=== PATIENT | female | born 1960 | race Caucasian/White ===

== ENCOUNTER → 2018-05-14 07:10 | Outpatient (CLI) | payer BC, SELFPAY ==
[2018-05-14 08:14] LABS: Alanine Aminotransferase 41 U/L (12-78); Albumin/Globulin Ratio 1.3 (1.1-1.8); Alkaline Phosphatase 77 U/L (46-116); Anion Gap 13.9 mEq/L (5-15); Aspartate Amino Transferase 25 U/L (15-37); Bilirubin,Total 0.5 mg/dL (0.2-1.0); Blood Urea Nitrogen 17 mg/dL (7-18); Calcium 9.3 mg/dL (8.5-10.1); Carbon Dioxide 30 mmol/L (21.0-32.0); Chloride 105 mmol/L (98-107); Chol/HDL Ratio 3.4 (1-3.5); Cholesterol 168 mg/dL (140-200); Creatinine,Serum 0.76 mg/dL (0.55-1.02); Estimated Glomerular Filt Rate 78 ml/min (>60); GFR (African American) 95 ML/MIN (>60); Globulin 3.2 gm/dl (1.3-3.2); Glucose 159 mg/dL (74-106); HDL Cholesterol 49 mg/dL (29-89); LDL Cholesterol 84 mg/dL (0-130); Potassium 4.9 mmoL/L (3.5-5.1); Sodium 144 mmol/L (136-145); Thyroid Stimulating Hormone 1.03 uIU/ml (0.358-3.740); Total Protein,Serum 7.2 gm/dL (6.4-8.2); Triglycerides 175 mg/dL (30-200); VLDL Cholesterol 35 mg/dL (0-40)
== END ==
PROVIDERS: Visit Provider Physician Assistant
DX: I25.10 Atherosclerotic heart disease of native coronary artery without angina pectoris (principal); I10 Essential (primary) hypertension
CPT/HCPCS: 36415; 80053; 80061; 84443

== ENCOUNTER → 2019-03-26 12:10 | Outpatient (CLI) | payer BC, SELFPAY ==
[2019-03-26 13:33] LABS: Alanine Aminotransferase 27 U/L (12-78); Albumin Level 3.7 gm/dL (3.4-5.0); Albumin/Globulin Ratio 1.2 (1.1-1.8); Alkaline Phosphatase 62 U/L (46-116); Anion Gap 13.4 mEq/L (5-15); Aspartate Amino Transferase 13 U/L (15-37); Bilirubin,Total 0.5 mg/dL (0.2-1.0); Blood Urea Nitrogen 11 mg/dL (7-18); Calcium 8.5 mg/dL (8.5-10.1); Carbon Dioxide 28 mmol/L (21.0-32.0); Chloride 107 mmol/L (98-107); Chol/HDL Ratio 2.9 (1-3.5); Cholesterol 152 mg/dL (140-200); Creatinine,Serum 0.58 mg/dL (0.55-1.02); Estimated Glomerular Filt Rate 106 ml/min (>60); GFR (African American) 129 ML/MIN (>60); Glucose 92 mg/dL (74-106); HDL Cholesterol 53 mg/dL (29-89); LDL Cholesterol 74 mg/dL (0-130); Potassium 4.4 mmoL/L (3.5-5.1); Sodium 144 mmol/L (136-145); Thyroid Stimulating Hormone 0.66 uIU/ml (0.358-3.740); Total Protein,Serum 6.7 gm/dL (6.4-8.2); Triglycerides 124 mg/dL (30-200); VLDL Cholesterol 25 mg/dL (0-40)
[2019-03-26 13:56] LABS: Hemoglobin A1C 6.3 % (0.0-7.0)
[2019-03-27 09:49] LABS: Creatinine, Urine 62.6 mg/dL (Not Estab.); Microalbumin, Urine <3.0 ug/mL (Not Estab.)
== END ==
PROVIDERS: Visit Provider Family Medicine
DX: E11.9 Type 2 diabetes mellitus without complications (principal); E78.5 Hyperlipidemia, unspecified
CPT/HCPCS: 36415; 80053; 80061; 82043; 82570; 83036; 84443

== ENCOUNTER → 2019-06-08 09:23 | Outpatient (CLI) | payer BC, SELFPAY ==
--- NOTE | 2019-06-08 09:25 | CA_ITS ---
PROCEDURE: 2-D M-mode and color Doppler study INDICATIONS FOR THE TEST: Chest pain+ COPD Heart Murmur Tobacco Smoking+ Palpitations+ Fatigue Syncope Edema+ Hypertension+Diabetes Mellitus+ Rheumatic Fever SOB STUART Obesity Hyperlipidemia+ Family History HD+ Additional History cardiac stents, hx of [place] ,dizziness PATIENT INFORMATION HEIGHT: 68 WEIGHT: 202 GENDER: Female B/P: 122/85 2-D/M-MODE INTERPRETATION: 2-D MEASUREMENTS OBSERVED VALUES IN CMS Right Ventricular Dimension (RVDd) 2.5 Interventricular Septum (Thickness)(IVsd) 0.9 Left Ventricular Internal Dimensions(LVIDd) 4.8 Left Ventricular Posterior Wall (Thickness)(LVPWd) 0.9 Aortic Root 2.9 Aortic Cusp Separation 2.0 Left Atrial Dimensions (LAD) 3.7 2D 1. Left atrium is mildly enlarged, left ventricle is normal size, mild concentric left ventricular hypertrophy, visually estimated ejection fraction 55% with no obvious regional wall motion abnormality, endocardial surfaces are poorly visualized. 2. The right atrium and right ventricle are mildly enlarged with normal contractility. 3. The aortic valve is minimally thickened and calcified. 4. The mitral and tricuspid valve are grossly normal. 5. The pulmonic valve is poorly visualized. 6. No significant pericardial effusion noted. DOPPLER INTERROGATION: Doppler interrogation of the aortic, mitral and tricuspid valvular presence of mild mitral and tricuspid regurgitation, tricuspid regurgitation jet velocity is inadequate for calculation of the right ventricular systolic pressure, grade 1 diastolic dysfunction seen with tissue Doppler evidence of raised left atrial pressure. CONCLUSION: 1. Normal left ventricular size, mild concentric left ventricular hypertrophy, visually estimated ejection fraction 55% with no regional wall motion abnormality, grade 1 diastolic dysfunction seen with tissue Doppler evidence of raised left atrial pressure. 2. Mildly enlarged right ventricle with normal contractility. 3. Mild mitral and tricuspid regurgitation 4. No significant pericardial effusion noted.
== END ==
PROVIDERS: PCP Family Medicine; Visit Provider Internal Medicine
DX: I25.10 Atherosclerotic heart disease of native coronary artery without angina pectoris (principal); E11.9 Type 2 diabetes mellitus without complications; I10 Essential (primary) hypertension; Z79.84 Long term (current) use of oral hypoglycemic drugs
CPT/HCPCS: 93306

== ENCOUNTER → 2019-06-09 07:24 | Outpatient (CLI) | payer BC, SELFPAY ==
--- NOTE | 2019-06-09 07:29 | NM_ITS ---
History:Chest pain, Palpitations, Syncope, Fatigue, HTN, DM, Tobacco use, Family history, CAD Procedure: Patient exercised on [place] protocol 8 minutes and 41, resting heart rate 68 bpm, resting blood pressure 150/90, with exercise maximum heart rate achieve was 138 bpm which is .greater than 85 % of the maximum predicted heart rate and blood pressure was 198/96. Test was stopped due to shortness of breath, patient denied any complained of chest pain. Patient has good exercise capacity achieved 10.1 mets of workload on treadmill, the blood pressure response to exercise was adequate. Electrocardiogram: Resting electrocardiogram showed sinus rhythm ., with exercise there is less than 1.5mm ST segment depression noted from the baseline EKG. The EKG portion of the exercise Myoview is negative for ischemia. Cardias Stress and Resting SPECT images: Cardias Stress and Resting SPECT images were obtained using technetium 99m Myoview 29.7 mCi stress and 10.11 mCi at rest. Gated SPECT further analysis of segmental wall motion and calculation of ejection fraction also done. Cardiac stress and resting SPECT show uniform myocardial activity without segmental perfusion abnormality, the computer derived ejection fraction is 67% with no regional wall motion abnormality, right ventricle is normal size and contractility. Conclusion: 1. The EKG portion of the exercise Myoview is negative for ischemia, patient has good exercise capacity achieved 10.1mets of workload on treadmill, the blood pressure response to exercise was adequate, there was no exercise-induced chest discomfort 2. No scintigraphic evidence of reversible ischemia seen, computer derived ejection fraction is over 67% with no regional wall motion abnormality. 3. Normal exercise Myoview study.
--- NOTE | 2019-06-09 07:42 | HMH.ITSHM ---
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 []CRESTOR LISINOPRIL METFORMIN COREG ROBINUL HORMONE PATCH SAXENDA XARELTO WELCHOL PREVACID ASA
== END ==
PROVIDERS: PCP Family Medicine; Visit Provider Internal Medicine
DX: I25.10 Atherosclerotic heart disease of native coronary artery without angina pectoris (principal); I10 Essential (primary) hypertension; E11.9 Type 2 diabetes mellitus without complications; Z79.84 Long term (current) use of oral hypoglycemic drugs
CPT/HCPCS: 78452; 93017; A9502

== ENCOUNTER → 2019-07-28 12:50 | Outpatient (CLI) | payer BC, SELFPAY ==
--- NOTE | 2019-07-28 12:56 | MR_ITS ---
PROCEDURE: MR HIP RT W CON CLINICAL INDICATION: RIGHT HIP PAIN Right hip pain and clicking COMPARISON: IR ARTHROGRAM HIP RT from 07/28/2019 TECHNIQUE: Multiplanar multi echo sequences are performed following intra-articular contrast injection. FINDINGS: Normal alignment. No fracture or dislocation. No evidence of avascular necrosis or significant arthritic change. The no lytic or blastic changes are evident. Intra-articular contrast is present and there is some contrast also within the soft tissues anterior to the femoral neck. No obvious labral tear. No obvious chondral lesions. IMPRESSION: Negative MRI arthrogram of the right hip. No obvious labral tear or chondral abnormality. Dictated by: Brannon Benson MD 07/31/2019 08:23 Electronically signed by Brannon Benson MD in [place] 07/31/2019 08:23
--- NOTE | 2019-07-28 13:19 | IR_ITS ---
PROCEDURE: IR ARTHROGRAM HIP RT CLINICAL INDICATION: PAIN RT HIP Right hip pain and clicking COMPARISON: MR HIP RT W CON from 07/28/2019 FINDINGS: Technique: Following obtaining informed consent under aseptic conditions and local anesthesia with 1 percent buffered lidocaine, 20 gauge spinal needle was inserted along the superior lateral aspect of the femoral neck at the basicervical region. Approximately 12 cc a mixture of Optiray 320, lidocaine, and gadolinium was injected. The contrast was noted to fill the bursa and extend into the joint space. There was a minimal amount of extravasation into the soft tissues. The patient tolerated the procedure well without evidence of immediate complication. IMPRESSION: Uneventful hip arthrogram performed Please see MRI arthrogram for further description Dictated by: Brannon Benson MD 07/28/2019 17:05 Electronically signed by Brannon Benson MD in [place] 07/31/2019 07:49
== END ==
PROVIDERS: PCP Family Medicine; Visit Provider Orthopaedic Surgery Adult Reconstructive Orthopaedic Surgery
DX: M25.551 Pain in right hip (principal)
CPT/HCPCS: 73525; 73722

== ENCOUNTER → 2019-10-06 15:00 | Outpatient (CLI) | payer BC, SELFPAY ==
--- NOTE | 2019-10-06 15:02 | CT_ITS ---
PROCEDURE: CT LUNG SCREENING CLINICAL INDICATION: CURRENT TOBACCO USE Forty pack-year smoking history, asymptomatic for lung cancer COMPARISON: No exams were available for comparison TECHNIQUE: The exam was performed on a GE Light Speed [address] scanner using 2.90 mGy CTDI. A low dose helical CT CHEST was performed on a multi-detector scanner. All CT scans at the facility use one or more dose reduction, viz: automated exposure control, ma/kV adjustment per patient size (including targeted exams where dose is matched to indication, i.e. head), or iterative reconstruction technique. The LDCT was performed in a facility that meets the criteria for the screening program. Data regarding this exam was submitted to ACR which is an approved registry. The order for this exam indicates that it came as a result of a lung cancer screening counseling shard decision-making visit that included all the elements required of such a visit including smoking cessation. The radiologist interpreting this exam meets the [facility] criteria for the LDCT lung cancer screening program. The exam is reported using the Lung-RADS classification scale and reported to the ACR registry. NOTE: This study was performed for the specific purposes of lung cancer screening and is not an alternative to diagnostic chest CT. RADIATION DOSE: CTDI vol(CT dose Index-volume) = 2.90mG DLP (Dose Length Product) = 103.42 mGcm FINDINGS: No suspicious pulmonary nodules evident. There is a subpleural 4 mm opacity in the lingula anteriorly which may be due to an area of fibrotic change with some mild fibrotic change long the lateral aspect of the major fissure inferiorly on the left. OTHER FINDINGS: Coronary artery calcifications the IMPRESSION: Lung rads category 2 benign findings. Coronary artery disease Recommend 12 month LDCT screening exam Dictated by: Brannon Benson MD 10/06/2019 19:18 Electronically signed by Brannon Benson MD in [place] 10/15/2019 08:01
== END ==
PROVIDERS: PCP Family Medicine; Visit Provider Family Medicine
DX: Z87.891 Personal history of nicotine dependence (principal); Z12.2 Encounter for screening for malignant neoplasm of respiratory organs

== ENCOUNTER → 2020-09-01 16:45 | Outpatient (CLI) | payer BC, SELFPAY | PROVIDERS: Visit Provider Family Medicine | DX: N30.00 Acute cystitis without hematuria (principal) | CPT/HCPCS: 87086; 87088; 87186 ==

== ENCOUNTER 2021-04-08 22:50 | Observation (INO) | payer BC, SELFPAY ==
[2021-04-08 22:51] VITALS: BP 161/72; PULSE 81; RESP 18; TEMP 36.6; O2SAT 97; BMI 33.4
--- NOTE | 2021-04-08 23:10 | CT_ITS ---
PROCEDURE INFORMATION: Exam: CT Abdomen And Pelvis With Contrast Exam date and time: 04/08/2021 11:10 PM Age: 60 years old Clinical indication: Vomiting; Prior surgery; Surgery date: 6+ months; Surgery type: Gallbladder; Patient HX: Abd cramping, v/d for 1 day; Additional info: Abd pain TECHNIQUE: Imaging protocol: Computed tomography of the abdomen and pelvis with contrast. Total images: 335 Radiation optimization: All CT scans at this facility use at least one of these dose optimization techniques: automated exposure control; mA and/or kV adjustment per patient size (includes targeted exams where dose is matched to clinical indication); or iterative reconstruction. Contrast material: ISOVUE; Contrast volume: 75 ml; Contrast route: IV; COMPARISON: MR HIP RT W CON 07/28/2019 1:28 PM FINDINGS: Coronary arteries: Calcific coronary artery disease is evident. Liver: Incidental Aki lobe of liver suspected. Gallbladder and bile ducts: Prior cholecystectomy noted. Pancreas: Normal. No ductal dilation. Spleen: Normal. No splenomegaly. Adrenal glands: Normal. No mass. Kidneys and ureters: Normal. No hydronephrosis. Stomach and bowel: Unremarkable. No obstruction. No mucosal thickening. Appendix: As seen posterior to the cecum on axial image 84, 15 mm diameter appendix was not distended on MRI of 07/28/2019 and has subtle surrounding inflammation, favoring early acute appendicitis though the diameter and its relative internal low-density conceivably could indicate the presence of an underlying appendiceal mucinous tumor. Intraperitoneal space: Unremarkable. No free air. No significant fluid collection. Vasculature: Atherosclerosis is evident. 3.4 x 4.5 cm nonruptured infrarenal abdominal aortic aneurysm. Abundant mural thrombus present in the aorta. Lymph nodes: Unremarkable. No enlarged lymph nodes. Urinary bladder: Unremarkable as visualized. Reproductive: Prior hysterectomy noted. Bones/joints: Moderate disc space height loss at L1-L3. 6 lumbar type vertebral bodies. Soft tissues: Benign peritoneal calcified body is an incidental finding. Other findings: Incidental pelvic phleboliths. IMPRESSION: 1. As seen posterior to the cecum on axial image 84, 15 mm diameter appendix has subtle inflammation at its distal aspect, favoring early acute appendicitis. The appendix was not distended on MRI of 07/28/2019. The prominent diameter and its relative internal low-density conceivably could indicate the presence of an underlying appendiceal mucinous tumor. 2. 3.4 x 4.5 cm nonruptured infrarenal abdominal aortic aneurysm. Abundant mural thrombus present in the aorta. Follow-up imaging in 6 months is recommended. In addition to planning follow-up imaging, consider surgical or endovascular referral.
[2021-04-08 23:21] LABS: Basophils % 0.3 % (0.1-2.0); Eosinophils # 0.1 K/mm3 (0.0-0.4); Eosinophils % 0.7 % (0.1-12.0); Hemoglobin 14.9 g/dL (12.2-16.2); Lymphocytes % 14.7 % (10-50); Mean Corpuscular HGB Conc 33.8 g/dL (31.8-35.4); Mean Corpuscular Hemoglobin 31.3 pg (27.0-31.2); Mean Corpuscular Volume 92.7 fl (81-99); Mean Platelet Volume 8.2 fl (7.4-10.4); Monocytes # 0.5 K/mm3 (0.1-1.0); Monocytes % 3.4 % (1.7-9.3); Neutrophils # 11.2 K/mm3 (1.8-7.8); Neutrophils % 80.9 % (37.0-80.0); Platelet Count 243 K/mm3 (142-424); Red Blood Count 4.75 M/mm3 (4.20-5.40); Red Cell Distribution Width 13.7 % (11.5-17.5); White Blood Count 13.8 K/mm3 (4.8-10.8)
[2021-04-08 23:21] LABS: Microscopic, Urine URINE MICROSCOPIC (MICROSCOPIC)
[2021-04-08 23:22] LABS: Appearance,Urine CLOUDY (Clear); Bilirubin,Urine Negative (Negative); Blood, Urine Negative (Negative); Color,Urine YELLOW (Yellow); Glucose,Urine (UA) Negative (Negative); Ketones,Urine 1+ (Negative); Leukocyte Esterase,Urine Negative (Negative); Nitrate,Urine Negative (Negative); PH,Urine 8.5 (5.0-8.5); Protein,Urine Negative (Negative); Specific Gravity, Urine 1.015 (1.005-1.030); Urobilinogen,Urine 0.2 EU/dl (0.2)
[2021-04-08 23:23] VITALS: BP 148/64; PULSE 72; O2SAT 98
[2021-04-08 23:27] LABS: Alanine Aminotransferase 49 U/L (12-78); Albumin/Globulin Ratio 1.7 (1.1-1.8); Alkaline Phosphatase 86 U/L (38-126); Amylase 53 U/L (30-110); Anion Gap 13.7 mEq/L (5-15); Aspartate Amino Transferase 55 U/L (14-36); Bilirubin,Total 1.1 mg/dl (0.2-1.3); Blood Urea Nitrogen 18 mg/dl (7-17); Calcium 9.8 mg/dl (8.4-10.2); Carbon Dioxide 31 mmol/L (22.0-30.0); Chloride 97 mmol/L (98-107); Creatinine Clearance Estimated 93 mL/min (50-200); Estimated Glomerular Filt Rate 102 ml/min (>60); GFR (African American) 123 ML/MIN (>60); Glucose 155 mg/dl (74-100); Lipase 170 U/L (23-300); Potassium 4.7 mmoL/L (3.5-5.1); Sodium 137 mmol/L (136-145)
[2021-04-08 23:29] LABS: Amorphous Sediment,Urine 2+ /lpf; Bacteria,Urine Trace /lpf; Squamous Epithelial Cell,Urine TNTC #/hpf (0-5); WBC,Urine Occasional #/hpf (0-3)
[2021-04-08 23:31] VITALS: BP 144/66; PULSE 73; O2SAT 94
[2021-04-08 23:33] LABS: C-Reactive Protein 4.8 mg/L (0-4)
[2021-04-08 23:37] LABS: Adenovirus,PCR Not Detected (NotDetected); Bordetella Pertussis Not Detected (NotDetected); Chlamydophila Pneumoniae, PCR Not Detected (NotDetected); Coronavirus 19, PCR Not Detected (NotDetected); Coronavirus 229E Not Detected (NotDetected); Coronavirus NL63 Not Detected (NotDetected); Coronavirus OC43 Not Detected (NotDetected); Coronovirus HKU1,PCR Not Detected (NotDetected); Human Metapneumovirus Not Detected (NotDetected); Influenza A, PCR Not Detected (NotDetected); Influenza AH1, 2009 Not Detected (NotDetected); Influenza AH1, PCR Not Detected (NotDetected); Influenza AH3,PCR Not Detected (NotDetected); Influenza B, PCR Not Detected (NotDetected); Mycoplasma Pneumoniae, PCR Not Detected (NotDetected); Parainfluenza 1, PCR Not Detected (NotDetected); Parainfluenza 2, PCR Not Detected (NotDetected); Parainfluenza 3, PCR Not Detected (NotDetected); Parainfluenza 4, PCR Not Detected (NotDetected); Respiratory Syncytial Virus Not Detected (NotDetected); Rhinovirus/Enterovirus Not Detected (NotDetected)
[2021-04-08 23:45] LABS: Erythrocyte Sedimentation Rate 16 mm/hr (0-30)
[2021-04-08 23:46] LABS: Procalcitonin 0.145 ng/mL (0.0-2.0)
[2021-04-09] VITALS (29 sets, daily range): BP systolic 101–183; BP diastolic 45–98; PULSE 70–98; RESP 12–20; TEMP 36.4–42.7; O2SAT 90–99; BMI 32.1
--- NOTE | 2021-04-09 00:22 | HMH.EDNVD ---
ED Disposition Clinical Impression: AAA (abdominal aortic aneurysm) without rupture Acute appendicitis Qualifiers: Acute appendicitis type: unspecified acute appendicitis type Qualified Code(s): K35.80 - Unspecified acute appendicitis CAD (coronary artery disease) Qualifiers: Coronary Disease-Associated Artery/Lesion type: [place] artery E[place] vs. transplanted heart: [place] heart Associated angina: without angina Qualified Code(s): I25.10 - Atherosclerotic heart disease of [place] coronary artery without angina pectoris Disposition: Admitted As Inpatient Condition on Discharge: Good Instructions: DI for Acute Abdominal Pain Referrals: Fabrice Anthony MD [Primary Care Provider] - - Critical Care Critical Care Time: No Attestation: On 04/08/21, the high probability of a clinically significant, sudden or life threatening deterioration of the following system(s) required my full and direct attention, intervention and personal management. The time I documented below is in addition to time spent performing reported procedures but includes the following listed in this critical care notation. Medical Decision Making - Medical Records Medical records reviewed: Yes: I reviewed the patient's medical records. - Sanya Inquiry Pt receiving controlled substance: No Vital Signs: 04/08/21 22:51 Temperature 97.8 F Temperature Source Oral Pulse Rate [Left Radial] 81 Respiratory Rate 18 Blood Pressure [Right Arm] 161/72 H Blood Pressure Mean [Right Arm] 101 Blood Pressure Source [Right Arm] Automatic Cuff Blood Pressure Position [Right Arm] Sitting 02 Sat by Pulse Oximetry 97 Oxygen Delivery Method Room Air - Lab Data Lab results reviewed: Yes: I reviewed the patient's lab results. Lab Results 04/08/21 22:55: Urine Color Yellow, Urine Appearance Cloudy, Urine pH 8.5, Ur Specific [place] 1.015, Urine Protein Negative, Urine Glucose (UA) Negative, Urine Ketones 1+, Urine Blood Negative, Urine Nitrate Negative, Urine Bilirubin Negative, Urine Urobilinogen 0.2, Ur Leukocyte Esterase Negative, Urine RBC None, Urine WBC Occasional, Ur Squamous Epith Cells Tntc, Amorphous Sediment 2+, Urine Bacteria Trace 04/08/21 23:05: WBC 13.8 H, RBC 4.75, Hgb 14.9, Hct 44.0, MCV 92.7, MCH 31.3 H, MCHC 33.8, RDW 13.7, Plt Count 243, MPV 8.2, Neut % (Auto) 80.9 H, Lymph % (Auto) 14.7, [place] % (Auto) 3.4, Eos % (Auto) 0.7, Baso % (Auto) 0.3, Neut # (Auto) 11.2 H, Lymph # (Auto) 2.0, [place] # (Auto) 0.5, Eos # (Auto) 0.1, Baso # (Auto) 0.0, ESR 16 04/08/21 23:05: Sodium 137, Potassium 4.7, Chloride 97 L, Carbon Dioxide 31 H, Anion Gap 13.7, BUN 18 H, Creatinine 0.60, Estimated Creat Clear 93, Estimated GFR 102, Est GFR ( Amer) 123, Glucose 155 H, Calcium 9.8, Total Bilirubin 1.1, AST 55 H, ALT 49, Alkaline Phosphatase 86, C-Reactive Protein 4.8 H, Total Protein 8.0, Albumin 5.0, Globulin 3.0, Albumin/Globulin Ratio 1.7, Amylase 53, Lipase 170, Procalcitonin 0.145 Result diagrams: 04/08/21 23:05 04/08/21 23:05 Orders (Tests/Meds): ED MEDICATIONS Generic Name Dose Route Start Last Admin Trade Name Freq PRN Reason Stop Dose Admin Sodium Chloride 1,000 mls @ 999 mls/hr 04/08/21 23:15 04/08/21 23:15 Sod Chlor 0.9% 1000ml Bag IV 04/09/21 00:15 999 mls/hr .Q1H1M CAYLA Administration Sodium Chloride 8 ml 04/08/21 23:14 Sodium Chloride 0.9% 10ml Vial IV 05/08/21 23:13 NEEDED PRN dilute pepcid Discontinued Medications Generic Name Dose Route Start Last Admin Trade Name Freq PRN Reason Stop Dose Admin Famotidine 20 mg 04/08/21 23:14 04/08/21 23:15 Famotidine 20mg/2ml Vial IV 04/08/21 23:15 20 mg ONCE ONE Administration Iopamidol 75 ml 04/08/21 23:54 04/08/21 23:55 Iopamidol-370 (76%);100ml Bottle IV 04/08/21 23:55 75 ml ONCE ONE Administration Ketorolac Tromethamine 30 mg 04/08/21 23:10 04/08/21 23:15 Ketorolac 30mg/Ml Vial IV 04/08/21 23:11 30 mg ONCE ONE Administrat
--- NOTE | 2021-04-09 00:27 | PC.NURSE ---
received notification of acute appendicitis from vrad. paged on-call physician.
--- NOTE | 2021-04-09 00:30 | PC.NURSE ---
Paging Oakley at this time
--- NOTE | 2021-04-09 00:35 | PC.NURSE ---
Soren speaking with Mark at 0030 Soren speaking with Remy at 0036
--- NOTE | 2021-04-09 00:46 | XR_ITS ---
PROCEDURE INFORMATION: Exam: XR Chest Exam date and time: 04/09/2021 12:46 AM Age: 60 years old Clinical indication: Shortness of breath; Patient HX: SOA, PT vapes; Additional info: SOB TECHNIQUE: Imaging protocol: XR of the chest. Views: 1 view. Total images: 1 COMPARISON: CT LUNG SCREENING 10/06/2019 3:07 PM FINDINGS: Lungs: Patchy bibasilar opacities favor atelectasis but COVID-19 is a consideration. Pleural spaces: Unremarkable. No pleural effusion. No pneumothorax. Heart/Mediastinum: Unremarkable. No cardiomegaly. Vasculature: Atherosclerosis is evident. Bones/joints: Unremarkable. IMPRESSION: Patchy bibasilar opacities favor atelectasis but COVID-19 is a consideration.
--- NOTE | 2021-04-09 03:05 | PC.NURSE ---
pt arrived to floor via wheelchair
--- NOTE | 2021-04-09 03:47 | PC.NURSE ---
A&OX4. PT TOLERATING RA WELL. PT UP INDEPENDENTLY IN ROOM. PT HAD X1 NA/VO UPON ARRIVAL TO FLOOR. TX WITH PRN ZOFRAN. ON REASSESSMENT PT RESTING IN BED. PT ABD TENDER TO TOUCH IN LOWER QUADRANT. BOWEL SOUNDS ACTIVE. PT TOLERATING NPO DIET WELL. PT SLEEPING AT THIS TIME. VSS WILL CONTINUE TO MONITOR.
[2021-04-09 05:58] LABS: POC Glucose,Bedside 125 (70-110)
[2021-04-09 06:01] LABS: Basophils % 0.1 % (0.1-2.0); Eosinophils % 0.4 % (0.1-12.0); Hematocrit 41.1 % (37.0-47.0); Hemoglobin 13.8 g/dL (12.2-16.2); Lymphocytes # 1.6 K/mm3 (0.7-4.5); Lymphocytes % 12.6 % (10-50); Mean Corpuscular HGB Conc 33.5 g/dL (31.8-35.4); Mean Corpuscular Hemoglobin 31.1 pg (27.0-31.2); Mean Corpuscular Volume 92.7 fl (81-99); Mean Platelet Volume 8.3 fl (7.4-10.4); Monocytes # 0.6 K/mm3 (0.1-1.0); Monocytes % 4.4 % (1.7-9.3); Neutrophils # 10.5 K/mm3 (1.8-7.8); Neutrophils % 82.5 % (37.0-80.0); Platelet Count 208 K/mm3 (142-424); Red Blood Count 4.43 M/mm3 (4.20-5.40); Red Cell Distribution Width 13.5 % (11.5-17.5); White Blood Count 12.7 K/mm3 (4.8-10.8)
[2021-04-09 06:11] LABS: Anion Gap 10.9 mEq/L (5-15); Blood Urea Nitrogen 15 mg/dl (7-17); Carbon Dioxide 26 mmol/L (22.0-30.0); Chloride 102 mmol/L (98-107); Creatinine Clearance Estimated 89 mL/min (50-200); Estimated Glomerular Filt Rate 125 ml/min (>60); GFR (African American) 152 ML/MIN (>60); Glucose 136 mg/dl (74-100); Potassium 3.9 mmoL/L (3.5-5.1); Sodium 135 mmol/L (136-145)
[2021-04-09 06:12] LABS: Calcium 8.5 mg/dl (8.4-10.2)
[2021-04-09 06:22] LABS: INR 0.96 (0.9-1.1); Prothrombin Time 11.4 seconds (10.1-12.5)
--- NOTE | 2021-04-09 07:07 | HMH.GSCON ---
*Admission Date: 04/09/21 *Reason for consult:: Abdominal pain, appendicitis *History of present illness: Patient is a 60-year-old female with history of coronary artery disease with previous myocardial infarction and drug-eluting stents placed in 2007 on Xarelto. She states that yesterday morning on 04/08/2021 she had developed nausea and dry heaves. This progressed to diffuse abdominal pain. She had some minor diarrhea. Her symptoms persisted and progressed and she presented to the emergency department late yesterday evening. She was found to have a leukocytosis. She underwent CT scan which incidentally revealed a 4 cm abdominal aortic aneurysm but she had findings of significantly enlarged appendix measuring 15 mm with stranding. She was admitted for inpatient management and surgical consultation. Review of Systems - Review of Systems Review of systems:: pertinent systems reviewed and negative unless documented below - *Neurologic Denies headache(s), Denies seizure-like activity [facility] History I have reviewed the patient's past medical history: Yes Medical History: Reports:: Aneurysm, Coronary Artery Disease, Diabetes Mellitus Type 2, Gastroesophageal Reflux Disease(GERD), Hyperlipidemia, Hypertension, Myocardial Infarction Denies:: Diabetes Mellitus Type 1, Internal Pacemaker, Lung Disease, Seizures *Have you ever received a pneumonia vaccine?: Yes *Have you received a flu vaccine this season?: Yes Other Medical History: Reports: Other. Denies: Blood Transfusion Reaction Other Surgeries: Yes: No Previous Surgery, Cardiac Catheterization, Cholecystectomy, Coronary Stent, Hysterectomy-Total, Tubal Ligation. No: Pacemaker Amputation: No Fractures: No - *Social History Smoking Status: Current every day smoker Tobacco Type: e-cigarettes # Packs/Day (cigarettes): 0 #Yrs smoked (if former smoker): 35 Alcohol Intake: never Alcohol Intake Frequency:: other Substance Use Type: other *Occupational Status:: employed *Travel in the last 8 weeks: None Family Hx:: Coronary Artery Disease, Heart Attack, Cancer Meds Home Medications Medication Instructions Recorded Confirmed Type Lansoprazole 15 mg PO DAILY 04/23/19 04/08/21 History Liraglutide [Saxenda] 3 mg PO DAILY 04/23/19 04/08/21 History Metformin HCl [Metformin HCl ER] 500 mg PO DAILY 04/23/19 04/08/21 History Rosuvastatin Calcium 40 mg PO DAILY 04/23/19 04/08/21 History estradioL [Estradiol] 0.025 mg TD DAILY 04/23/19 04/08/21 History carvedilol 25 mg tablet 25 mg PO BID 06/01/19 04/08/21 History rivaroxaban 2.5 mg tablet 2.5 mg PO BID tab 06/01/19 04/08/21 History lisinopril 10 mg tablet 10 mg PO DAILY tab 06/29/20 04/08/21 History meloxicam 15 mg tablet 15 mg PO DAILY tab 01/25/21 04/08/21 History Aspirin [Low Dose Aspirin EC] 81 mg PO DAILY 04/08/21 04/08/21 History Allergies Allergy/AdvReac Type Severity Reaction Status Date / Time penicillin G [PENICILLIN G] Allergy Unknown Verified 01/25/21 10:18 Penicillins [PENICILLINS] Allergy Unknown Verified 01/25/21 10:18 Sulfa (Sulfonamide Allergy Unknown Verified 01/25/21 10:18 Antibiotics) [SULFA (SULFONAMIDE ANTIBIOTICS)] sulfamethoxazole Allergy Unknown Verified 01/25/21 10:18 [SULFAMETHOXAZOLE] trimethoprim [TRIMETHOPRIM] Allergy Unknown Verified 01/25/21 10:18 Exam Vital signs and Labs for Last 24 Hours: Temp Pulse Resp BP Pulse Ox 98.5 F 70 16 132/72 95 04/09/21 03:24 04/09/21 03:24 04/09/21 03:24 04/09/21 03:24 04/09/21 03:24 Laboratory Results - last 24 hr 04/08/21 22:55: Urine Color Yellow, Urine Appearance Cloudy, Urine pH 8.5, Ur Specific [place] 1.015, Urine Protein Negative, Urine Glucose (UA) Negative, Urine Ketones 1+, Urine Blood Negative, Urine Nitrate Negative, Urine Bilirubin Negative, Urine Urobilinogen 0.2, Ur Leukocyte Esterase Negative, Urine RBC None, Urine WBC Occasional, Ur Squamous Epith Cells Tntc, Amorphous Sediment 2+, Urine Bacteria Trace
--- NOTE | 2021-04-09 07:40 | HMH.ANESCL ---
[facility] Anesthesia Checklist - Structural Data Admitted From: Inpatient Planned Operative Procedure/s: appy Consent for Planned Operative Procedure(s) Verified: Yes - Additional verifications Anesthesia Reactions: No Hx Blood Transfusions: No Blood Transfusion Reaction: No - Airway Assessment C-Spine Mobility Assessed: Yes TMJ Mobility Assessed: Yes Dentition: Good Dentition - Neurological Assessment Level of Consciousness: Awake, Alert, Appropriate - Anesthesia Plan Anesthesia Risk discussed: Yes Anesthesia Plan: Verified ASA Class: III Anesthesia Type: General [facility] History I have reviewed the patient's past medical history: Yes Medical History: Reports:: Aneurysm, Coronary Artery Disease, Diabetes Mellitus Type 2, Gastroesophageal Reflux Disease(GERD), Hyperlipidemia, Hypertension, Myocardial Infarction Denies:: Diabetes Mellitus Type 1, Internal Pacemaker, Lung Disease, Seizures *Have you ever received a pneumonia vaccine?: Yes *Have you received a flu vaccine this season?: Yes Other Medical History: Reports: Other. Denies: Blood Transfusion Reaction Anesthesia experience/problems:: none Other Surgeries: Yes: No Previous Surgery, Cardiac Catheterization, Cholecystectomy, Coronary Stent, Hysterectomy-Total, Tubal Ligation. No: Pacemaker Amputation: No Fractures: No - *Social History Smoking Status: Current every day smoker Tobacco Type: e-cigarettes # Packs/Day (cigarettes): 0 #Yrs smoked (if former smoker): 35 Alcohol Intake: never Alcohol Intake Frequency:: other Substance Use Type: other *Occupational Status:: employed *Travel in the last 8 weeks: None Family Hx:: Coronary Artery Disease, Heart Attack, Cancer
--- NOTE | 2021-04-09 07:50 | P.CONPHA_ITS ---
[facility] Pharmacy VTE Monitoring - Patient Demographics Admission date: 04/09/21 Report Date: 04/09/21 Time: 07:50 Allergies/Adverse Reactions: Patient Allergies penicillin G [PENICILLIN G] Allergy (Unknown, Verified 01/25/21 10:18) Penicillins [PENICILLINS] Allergy (Unknown, Verified 01/25/21 10:18) Sulfa (Sulfonamide Antibiotics) [SULFA (SULFONAMIDE ANTIBIOTICS)] Allergy (Unknown, Verified 01/25/21 10:18) sulfamethoxazole [SULFAMETHOXAZOLE] Allergy (Unknown, Verified 01/25/21 10:18) trimethoprim [TRIMETHOPRIM] Allergy (Unknown, Verified 01/25/21 10:18) Height: 1.73 m Weight: 95.963 kg Patient Problems: Current Active Problems Acute appendicitis (Acute) AAA (abdominal aortic aneurysm) without rupture (Acute) CAD (coronary artery disease) (Chronic) - VTE Risk Labs: VTE Related Lab Results Hgb 13.8 g/dL (12.2-16.2) 04/09/21 05:49 Hct 41.1 % (37.0-47.0) 04/09/21 05:49 Plt Count 208 K/mm3 (142-424) 04/09/21 05:49 PT 11.4 seconds (10.1-12.5) 04/09/21 05:49 INR 0.96 (0.9-1.1) 04/09/21 05:49 BUN 15 mg/dl (7-17) 04/09/21 05:49 Creatinine 0.50 mg/dl (0.52-1.04) L 04/09/21 05:49 Estimated Creat Clear 89 mL/min (50-200) 04/09/21 05:49 - Prophylaxis VTE Prophylaxis Ordered?: Yes Types of VTE Prophylaxis: TEDS Knee High Location of Applied Device: Bilateral Lower Extremeties
--- NOTE | 2021-04-09 08:00 | CA_ITS ---
APPROVED REPORT EXAM: Comprehensive 2D, Doppler, and color-flow Echocardiogram Accounts Payable Processor: Jaylyn Sands CRT Ht: 5 ft 8 in Wt: 220lbs BSA: 2.13 BP: 000/00 mmHg Indications: Palpitations, Peripheral Edema, Hyperlipidemia, Hypertension/HDD, stents old mi 2D Dimensions LVOT 1.91 cm (M/F) 1.5-2.5 LA Volume 30.40 mL LA Volume Index 14.30 mL/m2 (M/F) 16-34 M-Mode Dimensions RVDd 2.10 cm (0.9-2.6) LA Diam 3.32 cm (1.9-4.0) LVDd 4.11 cm (3.5-5.7) Ao Diam 3.70 cm (2.0-3.7) LVDs 2.90 cm (3.5-5.7) IVSd 1.53 cm (0.6-1.1) PWd 0.93 cm (0.6-1.1) EF (Teich) 56.90% FS 29.40% EDV (Teich) 74.70 mL TAPSE 2.22 (<1.7) ESV (Teich) 32.20 mL LV Diastology E Decel Time 150.00 (160-240 msec) E/A Ratio 0.80 MED E' 8.70 (< 7 cm/sec) MED A' 15.40 cm/s E'/MED E' Ratio 17.11 (>14) LAT E' 10.10 (<10 cm/sec) LAT A' 15.90 cm/s E/LAT E' Ratio 14.74 (>14) Aortic Valve AO Peak GR. 8.00 mmHg Mitral Valve MV E Max Michael. 149.00 (40-130 cm/s) MV A Velocity 186.00 (40-130 cm/s) E/A Ratio 0.80 MV Decel. Time 150.00 (160-240 ms) MV PHT 44.00 ms Tricuspid Valve TR P. Velocity 224.00 cm/s RAP Estimate 10.00 mmHg RVSP 30.10 mmHg Left Ventricle Technically difficult study because of the patient fact in poor acoustic windows. Endocardial borders are poorly visualized. Left atrium is mildly enlarged, left ventricle is normal size, mild concentric left ventricular hypertrophy, visually estimated ejection fraction 55% with no regional wall motion abnormality. Right Ventricle Right atrium and right ventricle are normal size and contractility. Aortic Valve Aortic valve is minimally thickened and fibrosed. There is no aortic stenosis or aortic insufficiency. Mitral Valve Mitral valve grossly normal, there is trace mitral regurgitation. Tricuspid Valve Tricuspid valve grossly normal, there is trace tricuspid regurgitation, tricuspid regurgitation jet velocity is inadequate for calculation of the right ventricular systolic pressure. Pulmonic Valve Pulmonic valve is poorly visualized. Great Vessels Aortic root is normal size. Pericardium No significant pericardial effusion noted. Conclusion 1. Mildly enlarged left atrium, normal left ventricular size, mild concentric left ventricular hypertrophy, visually estimated ejection fraction 55% with no regional wall motion abnormality, grade 1 diastolic dysfunction seen without tissue Doppler evidence of raise left atrial pressure. 2. Trace mitral and tricuspid regurgitation. 3. No significant pericardial effusion noted. Electronically signed by : Roger Cullen, 04/10/2021 05:53:18
--- NOTE | 2021-04-09 08:29 | HMH.HP ---
*Admission Date: 04/09/21 <Eliza Mallory 04/09/21 08:54> *Chief complaint: Abdominal pain <Eliza Mallory 04/09/21 08:54> *History of present illness: Ms. Pond is a 60-year-old female patient with a history of coronary artery disease, status post OH x2 in 2007 with stenting x3 vessels, hypertension, hyperlipidemia, irritable bowel syndrome with diarrhea, esophageal reflux, and tobacco use disorder who presented to the [facility] emergency room with diffuse abdominal pain associated with nausea and dry heaves. She also did so did experience some diarrhea. The symptoms persisted and progressed and she came to the ER. In the emergency room with evaluation CTs scan showed a 4 cm abdominal aortic aneurysm but significantly enlarged appendix measuring 15 mm with stranding. Temperature was 97.8 with a blood pressure 161/72. White blood cell count was 13,800. She received a liter of IV fluids. She also received Pepcid IV Ketorolac,Reglan, and Zofran IV. She was then admitted with surgical consultation. At the time of this visit patient is ready for transport to the OR for appendectomy. She has been seen by Dr. Flores. Please see his note. On the way out the door to the OR she vomited a significant amount of greenish bilish emesis. <Eliza Mallory 04/09/21 08:54> [facility] History Medical History: Reports:: Aneurysm, Coronary Artery Disease, Diabetes Mellitus Type 2, Gastroesophageal Reflux Disease(GERD), Hyperlipidemia, Hypertension, Myocardial Infarction Denies:: Diabetes Mellitus Type 1, Internal Pacemaker, Lung Disease, Seizures <Eliza Mallory 04/09/21 08:54> *Have you ever received a pneumonia vaccine?: Yes <Eliza Mallory 04/09/21 08:54> *Have you received a flu vaccine this season?: Yes <Eliza Mallory 04/09/21 08:54> Other Medical History: Reports: Other. Denies: Blood Transfusion Reaction <Eliza Mallory 04/09/21 08:54> Anesthesia experience/problems:: none <Eliza Mallory 04/09/21 08:54> Laterality Cases: Bilateral: Cataract (With implants) <Eliza Mallory 04/09/21 08:54> Other Surgeries: Yes: No Previous Surgery, Cardiac Catheterization, Cholecystectomy, Coronary Stent, Hysterectomy-Total, Tubal Ligation. No: Pacemaker <Eliza Mallory 04/09/21 08:54> Amputation: No <MalloryEliza de leon 04/09/21 08:54> Fractures: No <Mallory,Eliza - 04/09/21 08:54> Comment: Ulnar shortening of the right arm in 1999. Breast biopsy. Right hip surgery. <Eliza Mallory 04/09/21 08:54> - *Social History Smoking Status: Current every day smoker <Mallory,Eliza - 04/09/21 08:54> Tobacco Type: e-cigarettes <Eliza Mallory 04/09/21 08:54> # Packs/Day (cigarettes): 0 <Eliza Mallory 04/09/21 08:54> #Yrs smoked (if former smoker): 35 <Eliza Mallory 04/09/21 08:54> Alcohol Intake: never <Eliza Mallory 04/09/21 08:54> Alcohol Intake Frequency:: other <[place]awneeEliza - 04/09/21 08:54> Substance Use Type: other <Eliza Mallory 04/09/21 08:54> *Occupational Status:: employed <[place]awneeEliza 04/09/21 08:54> Household Members: significant other <MalloryEliza de leon 04/09/21 08:54> *Travel in the last 8 weeks: None <Eliza Mallory 04/09/21 08:54> Family Hx:: Coronary Artery Disease, Heart Attack, Cancer <Eliza Mallory 04/09/21 08:54> Review of Systems - Constitutional Denies fever(s) <Eliza Mallory 04/09/21 08:54> - Eyes Denies change in vision <Eliza Mallory 04/09/21 08:54> - ENT Denies ear pain, Denies sore throat <Eliza Mallory 04/09/21 08:54> - *Cardiovascular Denies chest pain, Denies shortness of breath <Eliza Mallory 04/09/21 08:54> - *Respiratory Denies chest congestion, Denies cough, Denies shortness of breath <Eliza Mallory 04/09/21 08:54> - *Gastrointestinal Reports abdominal pain (Diffuse), Reports change in stools, Reports loose stools, Reports nausea, Reports vomiting, Denies belching <Eliza Mlalory 04/09/21 08:54> - *Genitourinary Denies difficu
--- NOTE | 2021-04-09 08:57 | HMH.OPNOTE ---
Date of procedure: 04/09/21 Pre-op Diagnosis:: Acute appendicitis Post-op Diagnosis:: Same Procedure performed:: Laparoscopic appendectomy Surgeon:: Kobi Flores MD DENTAL PRACTICE MANAGER:: Armaan Sun Anesthesia: GETA Estimated blood loss (mL): 40 Clinical Note:: Patient is a 60-year-old female with history of coronary artery disease with previous myocardial infarction and drug-eluting stents placed in 2007 on Xarelto. She states that yesterday morning on 04/08/2021 she had developed nausea and dry heaves. This progressed to diffuse abdominal pain. She had some minor diarrhea. Her symptoms persisted and progressed and she presented to the emergency department late yesterday evening. She was found to have a leukocytosis. She underwent CT scan which incidentally revealed a 4 cm abdominal aortic aneurysm but she had findings of significantly enlarged appendix measuring 15 mm with stranding. She was admitted for inpatient management and surgical consultation. Patient was seen and examined. She had diffuse abdominal tenderness with voluntary guarding most pronounced in the right lower quadrant. She did undergo echocardiogram which revealed preserved left ventricular ejection fraction. Plan was made to proceed with appendectomy. Operative findings:: She had significantly inflamed somewhat suppurative appendicitis without necrosis or perforation. Interestingly she had a tiny peritoneal defect in the right abdomen from previous 5 mm laparoscopic cholecystectomy trocar site with herniated cecal epiploic fat. Operative note:: Patient was taken to the operating room. She was placed in a supine position. General anesthesia was induced via endotracheal tube. Deleon catheter was placed. Abdomen was prepped and draped in the standard surgical fashion. Subumbilical skin incision was made and while performing abdominal wall lift Veress needle was inserted. CO2 pneumoperitoneum was achieved to 15 mmHg. Millimeter optical trocar was inserted at the umbilicus. Intraperitoneal contents were visualized. She was positioned in Trendelenburg left side down. 5 mm trocar was inserted in the suprapubic location. Additional 5 mm trocar was inserted in the right upper abdomen. Attempt was made to mobilize the cecum medially as the appendix appeared to be in the lateral cecal location. She did have epiploic fat from the cecum and ascending colon adherent to the anterior abdominal wall. This was carefully taken down using Metzenbaum dissection. There was some mild herniation through the peritoneum. This appeared to be site of previous 5 mm trocar site from laparoscopic cholecystectomy. Once this was freed up the cecum was able to be retracted somewhat medially. The appendix was identified in a lateral single location. It was markedly inflamed and indurated with edema of the periappendiceal tissues. It was densely adherent laterally. Careful dissection was carried out dividing the adherent fatty tissues and the mesoappendix was carefully divided with SHAJI ultrasonic harmonic lilly. There was some oozing from an artery along the mesoappendix although this did not appear to be the appendiceal artery. This was clipped with a single Hemoclip resulting in good hemostasis. The appendiceal artery was then coagulated with SHAJI ultrasonic harmonic lilly and divided. Dissection was carried down to the base of the appendix which was relatively noninflamed. The appendix was divided at its base with an endoscopic RYLEE linear cutting stapling device. The appendix was placed within an Endo Catch retrieval device and removed from the peritoneal cavity via the umbilical trocar site. Irrigation of the pericecal location and pelvis was carried out. There appeared to be good hemostasis. Trochars were then removed as CO2 pneumoperitoneum was evacuated. Fascia at the umbilicus was closed with several interrupted 0 Vicryl sutures. Local anesthetic was infiltrated in all incisions. Ski
--- NOTE | 2021-04-09 09:00 | HMH.PHAINT ---
MEDICATION RECONCILIATION COMPLETED ON PATIENT USING EXTERNAL FILL HISTORY FROM PHARMACY AND LIST FROM [facility] OFFICE. -AUDRA ESQUIVELD
--- NOTE | 2021-04-09 09:10 | HMH.ANESI ---
[facility] Anesthesia Record Part I Intake, IV Amount: 1,500 Estimated blood loss (mL): 0 Urine output (mL): 0 Blood Pressure: 121/68 SaO2: 92 Pulse Rate: 91 Respiratory Rate: 12 Temperature: 98.4 F Patient is:: Awake, Stable Stable to PACU at:: 09:05
--- NOTE | 2021-04-09 09:26 | PC.NURSE ---
0928-pt eating ice chips w/out difficulty 0930-checked fsbs with results of 134
[2021-04-09 09:37] LABS: POC Glucose,Bedside 134 (70-110)
--- NOTE | 2021-04-09 09:42 | PC.NURSE ---
0932-detailed report given to SONIA Gonzalez 0970-pt transported to med surg room 213 via hospital bed w/alisson rails up and left in care of SONIA Gonzalez with bed locked and in lowest position, vss, pt stable
[2021-04-09 11:16] LABS: POC Glucose,Bedside 150 (70-110)
--- NOTE | 2021-04-09 11:53 | HMH.CNCARD ---
History of Present Illness Consult date: 04/09/21 Requesting physician: Malissa Alberto Chief complaint: Preop for appendicitis, AAA History of present illness: 60-year-old female presented to [facility] with acute appendicitis. Patient states late last evening she started to having vomiting and increased abdominal pain. Patient did undergo appendectomy this a.m. Patient denies chest pain, tightness or pressure. Patient denies shortness of breath with exertion. No swelling noted of the lower extremities. Patient denies dizziness or palpitations. Upon scanning of the abdomen the CT revealed a 4 cm abdominal aortic aneurysm, which this is new. Patient does have history of coronary artery disease with previous MIs and stents in 2007. Patient was placed on Xarelto, per PCP, as a result of her CAD. Patient denies any bleeding issues. Patient does have history of hypertension and hyperlipidemia in which is currently under controlled and managed by this cardiology office. Last cardiology appointment was in January,, which revealed no cardiac issues. Patient has not had any cardiac testing since 2019. Preliminary echocardiogram was performed this a.m. which revealed preserved left ventricular EF. Waiting official echocardiogram results, pending on those results, medication and therapy changes may be recommended. playground monitor reveals sinus rhythm with a heart rate of 70 bpm. Blood pressure is stable. Patient is a known diabetic which is controlled. Patient states that she does vape. Abd CT:IMPRESSION: 1. As seen posterior to the cecum on axial image 84, 15 mm diameter appendix has subtle inflammation at its distal aspect, favoring early acute appendicitis. The appendix was not distended on MRI of 07/28/2019. The prominent diameter and its relative internal low-density conceivably could indicate the presence of an underlying appendiceal mucinous tumor. 2. 3.4 x 4.5 cm nonruptured infrarenal abdominal aortic aneurysm. Abundant mural thrombus present in the aorta. Follow-up imaging in 6 months is recommended. In addition to planning follow-up imaging, consider surgical or endovascular referral. Discussed plan of care with Dr. Rodriguez. Obtain echocardiogram to assess for LV function and valve status. Pending on the results of the echocardiogram, medication and therapy changes may be recommended. Patient is currently on Xarelto due to CAD, will continue the Xarelto. Due to the incidental finding of the AAA, we will continue to monitor on an outpatient basis. Please notify cardiology of any changes in patient status. Thank you for allowing cardiology to participate in the care of this patient. [facility] History I have reviewed the patient's past medical history: Yes Medical History: Reports:: Aneurysm, Coronary Artery Disease, Diabetes Mellitus Type 2, Gastroesophageal Reflux Disease(GERD), Hyperlipidemia, Hypertension, Myocardial Infarction Denies:: Diabetes Mellitus Type 1, Internal Pacemaker, Lung Disease, Seizures *Have you ever received a pneumonia vaccine?: Yes *Have you received a flu vaccine this season?: Yes Other Medical History: Reports: Other. Denies: Blood Transfusion Reaction Anesthesia experience/problems:: none Laterality Cases: Bilateral: Cataract (With implants) Other Surgeries: Yes: No Previous Surgery, Cardiac Catheterization, Cholecystectomy, Coronary Stent, Hysterectomy-Total, Tubal Ligation. No: Pacemaker Amputation: No Fractures: No - *Social History Smoking Status: Current every day smoker Tobacco Type: e-cigarettes # Packs/Day (cigarettes): 0 #Yrs smoked (if former smoker): 35 Alcohol Intake: never Alcohol Intake Frequency:: other Substance Use Type: other *Occupational Status:: employed Household Members: significant other *Travel in the last 8 weeks: None Family Hx:: Coronary Artery Disease, Heart Attack, Cancer Meds Home Medications Medication Instructions Recorded Con
[2021-04-09 16:08] LABS: Microscopic,Cath URINE MICROSCOPIC (MICROSCOPIC)
[2021-04-09 16:10] LABS: Appearance,Urine/Cath CLEAR (Clear); Bilirubin,Cath Negative (Negative); Blood, Urine/Cath Negative (Negative); Color,Urine/Cath YELLOW (Yellow); Glucose,Urine/Cath (UA) Negative (Negative); Ketones,Urine/Cath 1+ (Negative); Leukocyte Esterase,Cath Negative (Negative); Nitrate,Cath Negative (Negative); Protein,Urine/Cath 1+ (Negative); Specific Gravity, Urine/Cath 1.025 (1.005-1.030); Urobilinogen,Cath 0.2 EU/dl (0.2)
[2021-04-09 16:58] LABS: POC Glucose,Bedside 220 (70-110)
[2021-04-09 17:38] LABS: Hematocrit 38.7 % (37.0-47.0)
--- NOTE | 2021-04-09 17:38 | PC.NURSE ---
PT IS RESTING IN BED. ALERT AND ORIENTED X4. PT HAS BEEN AWAKE AND TALKATIVE SINCE ARRIVING BACK TO THE FLOOR FROM SURGERY. POST OP VSS. PT HAS BEEN TOLERATING FULL LIQUIDS WELL. UMBILICAL DRESSING TO THE ABDOMEN WAS CHANGED THIS SHIFT. ALL DRESSINGS TO THE ABDOMEN C/D/I. PT HAS BEEN UP AMBULATING TO THE BATHROOM. TEDS NOTED TO BLE. PT STATES SHE IS HOPING TO GET TO GO HOME TOMORROW. WILL CONTINUE TO MONITOR.
[2021-04-09 17:51] LABS: Hemoglobin 12.8 g/dL (12.2-16.2)
[2021-04-09 20:27] LABS: POC Glucose,Bedside 241 (70-110)
--- NOTE | 2021-04-10 01:00 | PC.NURSE ---
PT. HAS NOT C/O N/V/D, DIZZINESS OR SOA. AT BEGINNING OF SHIFT PT. C/O SLIGHT H/A, TX WITH TYLENOL, EFFECTIVNESS REPORTED. REPORT GIVEN TO Darshana PANG RN.
[2021-04-10 03:58] VITALS: BP 135/69; PULSE 61; RESP 16; TEMP 36.5; O2SAT 94
[2021-04-10 04:57] VITALS: BMI 32.1
[2021-04-10 05:41] LABS: POC Glucose,Bedside 135 (70-110)
[2021-04-10 06:36] LABS: Basophils % 0.1 % (0.1-2.0); Eosinophils % 0.5 % (0.1-12.0); Hemoglobin 12.6 g/dL (12.2-16.2); Lymphocytes # 1.7 K/mm3 (0.7-4.5); Lymphocytes % 19.1 % (10-50); Mean Corpuscular Hemoglobin 31.4 pg (27.0-31.2); Mean Corpuscular Volume 92.4 fl (81-99); Mean Platelet Volume 8.7 fl (7.4-10.4); Monocytes # 0.5 K/mm3 (0.1-1.0); Neutrophils # 6.6 K/mm3 (1.8-7.8); Neutrophils % 74.3 % (37.0-80.0); Platelet Count 203 K/mm3 (142-424); Red Blood Count 4.01 M/mm3 (4.20-5.40); White Blood Count 8.9 K/mm3 (4.8-10.8)
[2021-04-10 06:42] LABS: Chloride 106 mmol/L (98-107)
[2021-04-10 06:43] LABS: Sodium 141 mmol/L (136-145)
[2021-04-10 06:46] LABS: Blood Urea Nitrogen 9 mg/dl (7-17); Calcium 8.5 mg/dl (8.4-10.2); Carbon Dioxide 26 mmol/L (22.0-30.0); Creatinine Clearance Estimated 89 mL/min (50-200); Estimated Glomerular Filt Rate 125 ml/min (>60); GFR (African American) 152 ML/MIN (>60); Glucose 138 mg/dl (74-100)
--- NOTE | 2021-04-10 07:21 | HMH.GSPN ---
Subjective Narrative: Patient felt quite well postoperatively yesterday afternoon. However today she states that she has some increasing pain. She has mild distention. Progress Note: A&P (1) Acute appendicitis Status: Acute (2) AAA (abdominal aortic aneurysm) without rupture Status: Acute (3) CAD (coronary artery disease) Status: Chronic (4) HLD (hyperlipidemia) Status: Chronic (5) HTN (hypertension) Status: Chronic Assessment and Plan for All Diagnoses:: Monitor for possible ileus. If patient shows improving pain and distention later today possible discharge Exam Vital signs and Labs for Last 24 Hours: Temp Pulse Resp BP Pulse Ox 97.7 F 61 16 135/69 94 L 04/10/21 03:58 04/10/21 03:58 04/10/21 03:58 04/10/21 03:58 04/10/21 03:58 Laboratory Results - last 24 hr 04/09/21 08:00: Urine Color Yellow, Urine Appearance Clear, Urine pH 7.0, Ur Specific [place] 1.025, Urine Protein 1+, Urine Glucose (UA) Negative, Urine Ketones 1+, Urine Blood Negative, Urine Nitrate Negative, Urine Bilirubin Negative, Urine Urobilinogen 0.2, Ur Leukocyte Esterase Negative, Urine RBC None, Urine WBC None, Ur Squamous Epith Cells None, Urine Bacteria None 04/09/21 09:29: POC Glucose 134 H 04/09/21 11:10: POC Glucose 150 H 04/09/21 15:48: Hgb 12.8, Hct 38.7 04/09/21 16:52: POC Glucose 220 H 04/09/21 19:55: POC Glucose 241 H 04/10/21 05:34: POC Glucose 135 H 04/10/21 06:05: WBC 8.9 D, RBC 4.01 L, Hgb 12.6, Hct 37.0, MCV 92.4, MCH 31.4 H, MCHC 34.0, RDW 14.0, Plt Count 203, MPV 8.7, Neut % (Auto) 74.3, Lymph % (Auto) 19.1, [place] % (Auto) 6.0, Eos % (Auto) 0.5, Baso % (Auto) 0.1, Neut # (Auto) 6.6, Lymph # (Auto) 1.7, [place] # (Auto) 0.5, Eos # (Auto) 0.0, Baso # (Auto) 0.0 04/10/21 06:05: Sodium 141, Potassium 4.0, Chloride 106, Carbon Dioxide 26, Anion Gap 13.0, BUN 9 D, Creatinine 0.50 L, Estimated Creat Clear 89, Estimated GFR 125, Est GFR ( Amer) 152, Glucose 138 H, Calcium 8.5 I & O for Last 24 hours: Intake & Output 04/07/21 04/08/21 04/09/21 04/10/21 11:59 11:59 11:59 11:59 Intake Total 2826 / 2826 1370 / 1370 Output Total 400 / 400 Balance 2426 / 2426 1370 / 1370 Weight 211 lb 9 oz 211 lb 9 oz - *Routine Abdominal Exam Present: soft Comments: Mildly distended. Dressings intact
[2021-04-10 07:26] VITALS: BP 140/78; PULSE 84; TEMP 36.4
--- NOTE | 2021-04-10 07:26 | P.PN_ITS ---
[facility] Anesthesia Record Part II Discharge Time: 09:35 Destination: Surgical Day Care (OP Surgery) PACU nurse assessment reviewed?: Yes Patient Condition:: Good Anesthesia Complications:: None Swallowing reflex intact?: Yes Cyanosis?: No Blood Pressure: 140/78 Pulse Rate: 84 Temperature: 97.6 F Mental Status: Alert & Oriented Pain level:: 0 Nausea and/or vomitting:: None Intake, IV Amount: 1,000
[2021-04-10 08:00] VITALS: BP 127/79; PULSE 71; RESP 20; TEMP 36.6; O2SAT 98
--- NOTE | 2021-04-10 08:32 | HMH.PNCARD ---
Subjective Date: 04/10/21 Time: 08:00 Principal diagnosis: Appendicitis, AAA Interval history: 60-year-old female admitted to [facility] with acute appendicitis. Patient did undergo appendectomy yesterday. Patient states she is feeling much better. Patient denies chest pain, pressure or tightness. Patient denies shortness of breath. No swelling noted of the lower extremities. Patient denies palpitations or dizziness. Patient is resting quietly in the bed. Incidental finding on abdominal CT revealed aortic abdominal aneurysm 4.5 cm nonruptured infrarenal and also abundant mural thrombosis is present in the aorta. This is a new finding. Coronary calcification was also noted on CT scan. Patient has had no cardiac testing for a few years. Discussed plan of care with Dr. Rodriguez. Would advise to have cardiac testing on an outpatient basis due to coronary calcification. Vital signs are stable. Due to abundant mural thrombosis present in the aorta and AAA noted incidentally on CT scan, will recommend repeat imaging. At follow-up in cardiology office in 1 to 2 weeks, we can discuss endovascular referral for the AAA. Medical management is indicated at this time. Patient will follow-up in cardiology office in 1 to 2 weeks or sooner if signs and symptoms develop. Echocardiogram was performed to assess LV function and valve status. EF revealed 55% with no regional wall abnormality with grade 1 diastolic dysfunction and trace of MR and TR regurgitation. Abd CT:IMPRESSION: 1. As seen posterior to the cecum on axial image 84, 15 mm diameter appendix has subtle inflammation at its distal aspect, favoring early acute appendicitis. The appendix was not distended on MRI of 07/28/2019. The prominent diameter and its relative internal low-density conceivably could indicate the presence of an underlying appendiceal mucinous tumor. 2. 3.4 x 4.5 cm nonruptured infrarenal abdominal aortic aneurysm. Abundant mural thrombus present in the aorta. Follow-up imaging in 6 months is recommended. In addition to planning follow-up imaging, consider surgical or endovascular referral. Echo:Conclusion 1. Mildly enlarged left atrium, normal left ventricular size, mild concentric left ventricular hypertrophy, visually estimated ejection fraction 55% with no regional wall motion abnormality, grade 1 diastolic dysfunction seen without tissue Doppler evidence of raise left atrial pressure. 2. Trace mitral and tricuspid regurgitation. 3. No significant pericardial effusion noted. Thank you for allowing cardiology to participate in the care of this patient. Exam Vital signs and Labs for Last 24 Hours: Temp Pulse Resp BP Pulse Ox 98 F 71 20 127/79 98 04/10/21 08:00 04/10/21 08:00 04/10/21 08:00 04/10/21 08:00 04/10/21 08:00 Laboratory Results - last 24 hr 04/09/21 08:00: Urine Color Yellow, Urine Appearance Clear, Urine pH 7.0, Ur Specific [place] 1.025, Urine Protein 1+, Urine Glucose (UA) Negative, Urine Ketones 1+, Urine Blood Negative, Urine Nitrate Negative, Urine Bilirubin Negative, Urine Urobilinogen 0.2, Ur Leukocyte Esterase Negative, Urine RBC None, Urine WBC None, Ur Squamous Epith Cells None, Urine Bacteria None 04/09/21 09:29: POC Glucose 134 H 04/09/21 11:10: POC Glucose 150 H 04/09/21 15:48: Hgb 12.8, Hct 38.7 04/09/21 16:52: POC Glucose 220 H 04/09/21 19:55: POC Glucose 241 H 04/10/21 05:34: POC Glucose 135 H 04/10/21 06:05: WBC 8.9 D, RBC 4.01 L, Hgb 12.6, Hct 37.0, MCV 92.4, MCH 31.4 H, MCHC 34.0, RDW 14.0, Plt Count 203, MPV 8.7, Neut % (Auto) 74.3, Lymph % (Auto) 19.1, [place] % (Auto) 6.0, Eos % (Auto) 0.5, Baso % (Auto) 0.1, Neut # (Auto) 6.6, Lymph # (Auto) 1.7, [place] # (Auto) 0.5, Eos # (Auto) 0.0, Baso # (Auto) 0.0 04/10/21 06:05: Sodium 141, Potassium 4.0, Chloride 106, Carbon Dioxide 26, Anion Gap 13.0, BUN 9 D, Creatinine 0.50 L, Estimated Creat Clear 89, Estimated GFR 125, Est GFR (Afri
--- NOTE | 2021-04-10 08:44 | HMH.ACPN2 ---
<Eliza Mallory - Last Filed: 04/10/21 08:44> Internal Medicine - PN: Subj *Date: 04/10/21 *Time: 08:44 Interval history: Patient states she is better today. She has had no further nausea or vomiting. She is taking clear liquids. Bowels have not moved. She has some lower abdominal cramping. She is voiding QS without dysuria. She has been out of bed. Exam Vital signs and Labs for Last 24 Hours: Temp Pulse Resp BP Pulse Ox 98 F 71 20 127/79 98 04/10/21 08:00 04/10/21 08:00 04/10/21 08:00 04/10/21 08:00 04/10/21 08:00 Laboratory Results - last 24 hr 04/09/21 08:00: Urine Color Yellow, Urine Appearance Clear, Urine pH 7.0, Ur Specific [place] 1.025, Urine Protein 1+, Urine Glucose (UA) Negative, Urine Ketones 1+, Urine Blood Negative, Urine Nitrate Negative, Urine Bilirubin Negative, Urine Urobilinogen 0.2, Ur Leukocyte Esterase Negative, Urine RBC None, Urine WBC None, Ur Squamous Epith Cells None, Urine Bacteria None 04/09/21 09:29: POC Glucose 134 H 04/09/21 11:10: POC Glucose 150 H 04/09/21 15:48: Hgb 12.8, Hct 38.7 04/09/21 16:52: POC Glucose 220 H 04/09/21 19:55: POC Glucose 241 H 04/10/21 05:34: POC Glucose 135 H 04/10/21 06:05: WBC 8.9 D, RBC 4.01 L, Hgb 12.6, Hct 37.0, MCV 92.4, MCH 31.4 H, MCHC 34.0, RDW 14.0, Plt Count 203, MPV 8.7, Neut % (Auto) 74.3, Lymph % (Auto) 19.1, [place] % (Auto) 6.0, Eos % (Auto) 0.5, Baso % (Auto) 0.1, Neut # (Auto) 6.6, Lymph # (Auto) 1.7, [place] # (Auto) 0.5, Eos # (Auto) 0.0, Baso # (Auto) 0.0 04/10/21 06:05: Sodium 141, Potassium 4.0, Chloride 106, Carbon Dioxide 26, Anion Gap 13.0, BUN 9 D, Creatinine 0.50 L, Estimated Creat Clear 89, Estimated GFR 125, Est GFR ( Amer) 152, Glucose 138 H, Calcium 8.5 I & O for Last 24 hours: Intake & Output 04/07/21 04/08/21 04/09/21 04/10/21 11:59 11:59 11:59 11:59 Intake Total 2826 / 2826 2730 / 2730 Output Total 400 / 400 Balance 2426 / 2426 2730 / 2730 Weight 211 lb 9 oz 211 lb 9 oz - Constitutional no acute distress - *Routine Respiratory Exam Present: CTA bilaterally (Anteriorly and posteriorly) - *Routine Cardiovascular Exam Present: RRR - *Routine Abdominal Exam Present: soft, normoactive bowel sounds, tenderness (Postoperative). Absent: distended Comments: Dressings on abdomen clean and dry. - *Routine Extremities Exam Absent: edema, calf tenderness - *Routine Neurological Exam Present: alert, oriented X3 Assessment and Plan (1) Acute appendicitis Status: Acute Qualifiers: Acute appendicitis type: unspecified acute appendicitis type Qualified Code(s): K35.80 - Unspecified acute appendicitis Category: Medical Code(s): K35.80 - Unspecified acute appendicitis (2) AAA (abdominal aortic aneurysm) without rupture Status: Acute Category: Medical Code(s): I71.4 - Abdominal aortic aneurysm, without rupture (3) CAD (coronary artery disease) Status: Chronic Qualifiers: Coronary Disease-Associated Artery/Lesion type: [place] artery [place] vs. transplanted heart: [place] heart Associated angina: without angina Qualified Code(s): I25.10 - Atherosclerotic heart disease of [place] coronary artery without angina pectoris Category: Medical Code(s): I25.10 - Atherosclerotic heart disease of [place] coronary artery without angina pectoris (4) HLD (hyperlipidemia) Status: Chronic Qualifiers: Hyperlipidemia type: mixed hyperlipidemia Qualified Code(s): E78.2 - Mixed hyperlipidemia Category: Medical Code(s): E78.5 - Hyperlipidemia, unspecified (5) HTN (hypertension) Status: Chronic Qualifiers: Hypertension type: essential hypertension Qualified Code(s): I10 - Essential (primary) hypertension Category: Medical Code(s): I10 - Essential (primary) hypertension - Assessment and plan all Dx Assessment and Plan for all problems:: Patient is ready for discharge. Discussed discontinuing vaping. <Fabrice Anthony - Last Filed: 0
[2021-04-10 11:38] VITALS: BP 119/74; PULSE 70; RESP 20; TEMP 37; O2SAT 97
[2021-04-10 11:46] LABS: POC Glucose,Bedside 115 (70-110)
--- NOTE | 2021-04-10 14:32 | HMH.GSPN ---
Subjective Patient reports: feels better Narrative: Patient feels better this afternoon. Progress Note: A&P (1) Acute appendicitis Status: Acute (2) AAA (abdominal aortic aneurysm) without rupture Status: Acute (3) CAD (coronary artery disease) Status: Chronic (4) HLD (hyperlipidemia) Status: Chronic (5) HTN (hypertension) Status: Chronic Assessment and Plan for All Diagnoses:: Discharge home this afternoon. Exam Vital signs and Labs for Last 24 Hours: Temp Pulse Resp BP Pulse Ox 98.6 F 70 20 119/74 97 04/10/21 11:38 04/10/21 11:38 04/10/21 11:38 04/10/21 11:38 04/10/21 11:38 Laboratory Results - last 24 hr 04/09/21 08:00: Urine Color Yellow, Urine Appearance Clear, Urine pH 7.0, Ur Specific [place] 1.025, Urine Protein 1+, Urine Glucose (UA) Negative, Urine Ketones 1+, Urine Blood Negative, Urine Nitrate Negative, Urine Bilirubin Negative, Urine Urobilinogen 0.2, Ur Leukocyte Esterase Negative, Urine RBC None, Urine WBC None, Ur Squamous Epith Cells None, Urine Bacteria None 04/09/21 15:48: Hgb 12.8, Hct 38.7 04/09/21 16:52: POC Glucose 220 H 04/09/21 19:55: POC Glucose 241 H 04/10/21 05:34: POC Glucose 135 H 04/10/21 06:05: WBC 8.9 D, RBC 4.01 L, Hgb 12.6, Hct 37.0, MCV 92.4, MCH 31.4 H, MCHC 34.0, RDW 14.0, Plt Count 203, MPV 8.7, Neut % (Auto) 74.3, Lymph % (Auto) 19.1, [place] % (Auto) 6.0, Eos % (Auto) 0.5, Baso % (Auto) 0.1, Neut # (Auto) 6.6, Lymph # (Auto) 1.7, [place] # (Auto) 0.5, Eos # (Auto) 0.0, Baso # (Auto) 0.0 04/10/21 06:05: Sodium 141, Potassium 4.0, Chloride 106, Carbon Dioxide 26, Anion Gap 13.0, BUN 9 D, Creatinine 0.50 L, Estimated Creat Clear 89, Estimated GFR 125, Est GFR ( Amer) 152, Glucose 138 H, Calcium 8.5 04/10/21 11:39: POC Glucose 115 H I & O for Last 24 hours: Intake & Output 04/08/21 04/09/21 04/10/21 04/11/21 11:59 11:59 11:59 11:59 Intake Total 2826 / 2826 2730 / 2730 480 / 480 Output Total 400 / 400 Balance 2426 / 2426 2730 / 2730 480 / 480 Weight 211 lb 9 oz 211 lb 9 oz - *Routine Abdominal Exam Present: soft. Absent: tenderness
--- NOTE | 2021-04-12 14:57 | HMH.DCSUM ---
General - General Admission date:: 04/09/21 Discharge date: 04/10/21 HPI HPI: Ms. Pond is a 60-year-old female patient with a history of coronary artery disease, status post PR x2 in 2007 with stenting x3 vessels, hypertension, hyperlipidemia, irritable bowel syndrome with diarrhea, esophageal reflux, and tobacco use disorder who presented to the [facility] emergency room with diffuse abdominal pain associated with nausea and dry heaves. She also did so did experience some diarrhea. The symptoms persisted and progressed and she came to the ER. In the emergency room with evaluation CTs scan showed a 4 cm abdominal aortic aneurysm but significantly enlarged appendix measuring 15 mm with stranding. Temperature was 97.8 with a blood pressure 161/72. White blood cell count was 13,800. She received a liter of IV fluids. She also received Pepcid IV Ketorolac,Reglan, and Zofran IV. She was then admitted with surgical consultation. At the time of this visit patient is ready for transport to the OR for appendectomy. She has been seen by Dr. Flores. Please see his note. On the way out the door to the OR she vomited a significant amount of greenish bilish emesis. Hospital Course Hospital Course: The patient's abdominal and pelvic CT showed acute appendicitis. She was seen in consultation by Dr. Flores who took her directly to the OR and performed an appendectomy. She tolerated the procedure well. Cardiology was consulted due to an incidental finding on her CT of an abdominal aortic aneurysm 4 cm in size. She had an echo showing an EF of 55% with grade 1 diastolic dysfunction. They did not feel any further cardiac testing was warranted and wanted to follow-up on the AAA on an outpatient basis. By 04/10/2021, she was feeling better. She was able to take clear liquids and her bowels were moving. She was stable to be discharged home and will follow up with both Dr. Flores and cardiology. Objective Vital signs: Temp Pulse Resp BP Pulse Ox 98.6 F 70 20 119/74 97 04/10/21 11:38 04/10/21 11:38 04/10/21 11:38 04/10/21 11:38 04/10/21 11:38 Narrative: - Constitutional no acute distress <Eliza Mallory - 04/09/21 08:54> Comments: She did vomit while being transported out of her room to the OR. - *Routine HEENT Exam Head: Present: normocephalic, atraumatic Eye: Present: PERRL. Absent: conjunctival icterus, scleral injection ENT: Present: mucous membranes moist, oropharynx clear - *Routine Neck Exam Present: supple. Absent: carotid bruit, lymphadenopathy, thyromegaly - *Routine Respiratory Exam Present: CTA bilaterally (Anteriorly and posteriorly) - *Routine Cardiovascular Exam Present: RRR - *Routine Abdominal Exam Present: soft, normoactive bowel sounds, tenderness (Diffuse) - *Routine Rectal Exam Rectal:: deferred - *Routine Genitalia Exam Genitalia:: deferred - *Routine Extremities Exam Absent: edema, calf tenderness - *Routine Skin Exam Present: dry, warm - *Routine Neurological Exam Present: alert, oriented X3 DS: Diagnosis - Discharge Diagnosis (1) Acute appendicitis Status: Acute (2) AAA (abdominal aortic aneurysm) without rupture Status: Acute (3) CAD (coronary artery disease) Status: Chronic (4) HLD (hyperlipidemia) Status: Chronic (5) HTN (hypertension) Status: Chronic Discharge Plan - Patient Discharge Instructions ACTIVITY: No heavy lifting DIET: advance to your usual diet Patient Instructions: Appendicitis, DI for an Appendectomy, DI for Surgical Site Infection - Follow up Plan Follow up with: Fabrice Anthony MD [Primary Care Provider] - 05/11/21 9:00 am Kobi Flores MD [Staff Physician] - 04/27/21 10:15 am Disposition: Home, Self-Care Condition at discharge:: Stable Home Medications: Home Medications Medication Instructions Recorded Confirmed Type Lansopra
== END 2021-04-10 15:20 | disposition home or self-care (01) ==
LOC: ER 22:55 → 2ND 04-09 00:39
PROVIDERS: Surgery; Admitting Provider Family Medicine; Emergency Provider Emergency Medicine; PCP Family Medicine; Visit Provider Family Medicine
PROC: (CPT 44950; principal; 2021-04-09 07:40)
DX: K35.80 Unspecified acute appendicitis (principal); I10 Essential (primary) hypertension; Z95.5 Presence of coronary angioplasty implant and graft; I25.10 Atherosclerotic heart disease of native coronary artery without angina pectoris; Z79.01 Long term (current) use of anticoagulants; E11.9 Type 2 diabetes mellitus without complications; E78.5 Hyperlipidemia, unspecified; I25.2 Old myocardial infarction; F17.210 Nicotine dependence, cigarettes, uncomplicated; Z88.0 Allergy status to penicillin; Z88.2 Allergy status to sulfonamides; Z88.8 Allergy status to other drugs, medicaments and biological substances; Z79.84 Long term (current) use of oral hypoglycemic drugs; Z71.6 Tobacco abuse counseling; I71.4 Abdominal aortic aneurysm, without rupture
CPT/HCPCS: 44970; 36415; 71045; 74177; 80048; 80053; 81001; 82150; 82962; 83690; 84145; 85014; 85018; 85025; 85610; 85651; 86140; 87581; 87633; 87798; 93005; 93306; 96365; 96374; 96375; 99284; G0378; J1335; J2405; Q9967

== ENCOUNTER → 2021-10-24 12:24 | Outpatient (CLI) | payer BC, SELFPAY ==
--- NOTE | 2021-10-24 12:31 | XR_ITS ---
PROCEDURE: XR ACUTE ABDOMEN SERIES CLINICAL INDICATION: ABD PAIN COMPARISON: No exams were available for comparison FINDINGS: Frontal view of the chest shows no acute finding. Upright and supine views of the abdomen demonstrates a nonspecific bowel gas pattern. No intestinal obstruction or free air. There are scattered pelvic phleboliths. Suture lines are present in right lower quadrant with surgical clips in the right lower quadrant and clips also in the right upper quadrant. There is lumbar scoliosis convex right. Generalized vascular calcification. IMPRESSION: No acute findings. Dictated by: Brannon Benson MD 10/24/2021 13:29 Brannon Benson MD in OV 10/24/2021 13:29
== END ==
PROVIDERS: PCP Family Medicine; Visit Provider Physician Assistant
DX: R10.31 Right lower quadrant pain (principal)
CPT/HCPCS: 74021

== ENCOUNTER → 2022-02-28 12:05 | Outpatient (CLI) | payer BC, SELFPAY ==
[2022-02-28 13:05] LABS: Basophils # 0.2 K/mm3 (0-0.2); Basophils % 2.4 % (0.1-2.0); Eosinophils # 0.1 K/mm3 (0.0-0.4); Eosinophils % 0.7 % (0.1-12.0); Hematocrit 43.7 % (37.0-47.0); Hemoglobin 14.7 g/dL (12.2-16.2); Lymphocytes % 30.9 % (10-50); Mean Corpuscular HGB Conc 33.6 g/dL (31.8-35.4); Mean Corpuscular Hemoglobin 31.8 pg (27.0-31.2); Mean Corpuscular Volume 94.8 fl (81-99); Mean Platelet Volume 9.2 fl (7.4-10.4); Monocytes # 0.4 K/mm3 (0.1-1.0); Monocytes % 5.9 % (1.7-9.3); Neutrophils % 60.1 % (37.0-80.0); Platelet Count 275 K/mm3 (142-424); Red Cell Distribution Width 13.8 % (11.5-17.5); White Blood Count 6.6 K/mm3 (4.8-10.8)
[2022-02-28 15:13] LABS: Alanine Aminotransferase 84 U/L (12-78); Albumin Level 4.6 g/dl (3.5-5.0); Alkaline Phosphatase 87 U/L (38-126); Aspartate Amino Transferase 93 U/L (14-36); Bilirubin,Direct 0.2 mg/dl (0.0-0.4); Bilirubin,Indirect 0.6 mg/dL (0.0-0.9); Bilirubin,Total 0.8 mg/dl (0.2-1.3); Bilirubin,Unconjugated 0.6 mg/dL (0.0-1.1); Blood Urea Nitrogen 14 mg/dl (7-17); Calcium 9.3 mg/dl (8.4-10.2); Carbon Dioxide 25 mmol/L (22.0-30.0); Chloride 103 mmol/L (98-107); Chol/HDL Ratio 3.4 (1-3.5); Cholesterol 188 mg/dl (140-200); Estimated Glomerular Filt Rate 125 ml/min (>60); GFR (African American) 151 ML/MIN (>60); Glucose 118 mg/dl (74-100); HDL Cholesterol 56 mg/dl (40-60); Magnesium 1.9 mg/dl (1.6-2.3); Sodium 136 mmol/L (136-145); Triglycerides 221 mg/dl (30-150); VLDL Cholesterol 44 mg/dL (0-40)
[2022-02-28 15:24] LABS: Direct LDL Cholesterol 88.15 mg/dL (100-129)
[2022-02-28 15:43] LABS: Thyroid Stimulating Hormone 0.07 uIU/mL (0.465-4.68)
== END ==
PROVIDERS: PCP Family Medicine; Visit Provider Internal Medicine
DX: I25.10 Atherosclerotic heart disease of native coronary artery without angina pectoris (principal); I10 Essential (primary) hypertension; E78.2 Mixed hyperlipidemia; I71.4 Abdominal aortic aneurysm, without rupture
CPT/HCPCS: 36415; 80048; 80061; 80076; 83735; 84439; 84443; 85025

== ENCOUNTER → 2022-03-06 10:25 | Outpatient (CLI) | payer BC, SELFPAY ==
--- NOTE | 2022-03-06 10:25 | US_ITS ---
FINAL REPORT CLINICAL HISTORY: low tsh FINDINGS: THYROID ULTRASOUND Sonographic images of the thyroid was obtained. The right lobe of the thyroid measures 4.1 x 2.6 x 1.2 cm. Decreased blood flow is noted. The left lobe of the thyroid measures 3.6 x 1.6 x 1.4 cm. Decreased blood flow is noted The isthmus measures 3 mm. There is a 2 x 2 x 1 mm nodule in the left lobe which is cystic, TI-RADS 0. There are 3 nodules in the right lobe as follows: Nodule A measures 8 x 7 x 6 mm, is solid and hypoechoic, TI-RADS 4. Nodule B measures 7 x 7 x 3 mm, is cystic, TI-RADS 0. Nodule C measures 5 x 6 x 5 mm, is solid and hyperechoic, TI-RADS 3. IMPRESSION: Several small nodules in both lobes. No follow-up required. Reviewed, Interpreted and Dictated by Kobi Nino III, MD Transcribed by Marcela Singh Authenticated by Kobi Nino III, MD on 03/06/2022 04:10:43 PM [facility]
== END ==
PROVIDERS: PCP Family Medicine; Visit Provider Physician Assistant
DX: E05.90 Thyrotoxicosis, unspecified without thyrotoxic crisis or storm (principal); I10 Essential (primary) hypertension; E78.5 Hyperlipidemia, unspecified; I20.9 Angina pectoris, unspecified; I71.4 Abdominal aortic aneurysm, without rupture
CPT/HCPCS: 76536

== ENCOUNTER → 2022-03-24 10:30 | Outpatient (CLI) | payer BC, SELFPAY ==
[2022-03-24 11:34] LABS: Bilirubin,Unconjugated 0.5 mg/dL (0.0-1.1)
[2022-03-24 11:35] LABS: Alanine Aminotransferase 71 U/L (12-78); Alkaline Phosphatase 113 U/L (38-126); Aspartate Amino Transferase 74 U/L (14-36); Bilirubin,Direct 0.1 mg/dl (0.0-0.4); Bilirubin,Indirect 0.5 mg/dL (0.0-0.9); Bilirubin,Total 0.6 mg/dl (0.2-1.3); Total Protein,Serum 6.9 g/dl (6.3-8.2)
[2022-03-24 11:49] LABS: Creatinine,Urine Random 83 mg/dL (Not Estab.)
[2022-03-24 12:06] LABS: Thyroid Stimulating Hormone 1.05 uIU/mL (0.465-4.68)
[2022-03-25 09:14] LABS: Free T4 (Free Thyroxine) 1.35 ng/dl (0.78-2.19)
== END ==
PROVIDERS: PCP Family Medicine; Visit Provider Family Medicine
DX: E11.9 Type 2 diabetes mellitus without complications (principal); R79.89 Other specified abnormal findings of blood chemistry; Z79.84 Long term (current) use of oral hypoglycemic drugs
CPT/HCPCS: 36415; 80076; 82043; 82570; 84436; 84439; 84443

== ENCOUNTER → 2022-09-12 15:03 | Outpatient (CLI) | payer BC, SELFPAY ==
--- NOTE | 2022-09-12 15:08 | XR_ITS ---
FINAL REPORT TECHNIQUE: Chest PA & Lateral CLINICAL HISTORY: COUGH COMPARISON: March 2021 FINDINGS: 2 views of the chest were performed. The heart size is normal. The mediastinum is within normal limits. There is no acute cardiopulmonary process. There are no pleural effusions. There is no pneumothorax. The bony thorax appears intact. IMPRESSION: No acute cardiopulmonary process. Reviewed, Interpreted and Dictated by Kobi Nino III, MD Transcribed by Clayton Jenkins Authenticated and [facility]
[2022-09-12 15:40] LABS: Basophils # 0.1 K/mm3 (0-0.2); Basophils % 0.5 % (0.1-2.0); Eosinophils # 0.1 K/mm3 (0.0-0.4); Eosinophils % 0.7 % (0.1-12.0); Hematocrit 45.5 % (37.0-47.0); Hemoglobin 14.1 g/dL (12.2-16.2); Lymphocytes % 29.1 % (10-50); Mean Corpuscular Hemoglobin 30.4 pg (27.0-31.2); Mean Corpuscular Volume 98.1 fl (81-99); Mean Platelet Volume 7.8 fl (7.4-10.4); Monocytes # 0.5 K/mm3 (0.1-1.0); Monocytes % 5.2 % (1.7-9.3); Neutrophils # 6.6 K/mm3 (1.8-7.8); Neutrophils % 64.5 % (37.0-80.0); Platelet Count 317 K/mm3 (142-424); Red Blood Count 4.64 M/mm3 (4.20-5.40); Red Cell Distribution Width 13.4 % (11.5-17.5); White Blood Count 10.2 K/mm3 (4.8-10.8)
== END ==
PROVIDERS: PCP Family Medicine; Visit Provider Family Medicine
DX: Z20.822 Contact with and (suspected) exposure to COVID-19 (principal)
CPT/HCPCS: 36415; 71046; 85025

== ENCOUNTER → 2022-09-26 07:39 | Outpatient (CLI) | payer BC, SELFPAY ==
--- NOTE | 2022-09-26 | CA_ITS ---
APPROVED REPORT Exam: Pharmacologic Technologist: Lisandra Martins, Ht: 5 ft 8 in Wt: 219 lbs BSA: 2.12 m2 HR: 80 bpm BP: 115/82 mmHg Rhythm: NSR, normal Medical History Medical History: HTN, Hyperlipidemia, Diabetes Medications: Lisinopril,,,,, Asa,,,,, Metformin,,,,, Carvedilol,,,,, PaROXETINE,,,,, Lansoprasole,,,,, RIvaROXABAN,,,,, GlYcopyrrolate,,,,, RoSovastatin,,,,, Liraglutide,,,,, Cardiac Risk Factors: HTN, Hyperlipidemia, Diabetes (non-insulin), FHX of CAD Stress Test Details Test: LEXISCAN HR Resting HR: 85 bpm Max Heart Rate (APMHR): 158.670421 bpm Max HR Achieved: 107 bpm Target HR (85% APMHR): 134.075034 bpm % of APMHR: 67.72 Recovery HR: 99 bpm BP Resting BP: 115/82 mmHg Max BP: 130/69 mmHg Recovery BP: 119.0/70.0 mmHg ECG Resting ECG: NSR, normal Clinical Exercise duration: 04:01 min Highest Stage Achieved: Stress ECG Conclusion During lexiscan pt experinced SOA, stomach discomfort. No CP. No arrhythmias noted. Unremarkable lexiscan stress. Myoview images reported separately. Test Summary REST . . . . . . . Sitting REST 05:17 . . 85 . 115/ 82 . . Stage 1 01:00 . . 100 . . . . Stage 2 01:00 . . 100 . 123/ 78 . . Stage 3 01:00 . . 96 . 129/ 76 . . Stage 4 01:00 . . 100 . 126/ 82 . . Stage 4 01:01 . . 100 . 126/ 82 . Stop exercise at 04:01 RECOVERY 01:00 . . 97 . . . . RECOVERY 02:00 . . 94 . 119/ 70 . . RECOVERY 03:00 . . 95 . 130/ 69 . . RECOVERY 04:00 . . 85 . 109/ 70 . . RECOVERY 04:18 . . 94 . 109/ 70 . . Electronically signed by : Roger Cullen MD 09/27/2022 09:45:48
--- NOTE | 2022-09-26 07:39 | NM_ITS ---
APPROVED REPORT Exam: Nuclear Stress Test Indication: fatigue Patient Location: Outpatient Stress Tech: Lisandra Martins IN Tech:Dana MunroeHYUN RT(R)(N) Ht: 5 ft 8 in Wt: 217 lbs Bra Size: 42d HR: 85 bpm BP: 115/82 mmHg BSA: 2.12 m2 TID: 1.36 BMI: 32.9 Procedure: Patient received a 0.4 mg of intravenous Lexiscan, resting heart rate 85 bpm, resting blood pressure 115/82 mmHg, with Lexiscan maximum heart rate achived was 107 bpm which is Less than 85 % of the maximum predicted heart rate and blood pressure was 130/69 mmHg. With Lexiscan, patient denied any complaint of chest pain. Electrocardiogram Resting electrocardiogram shows sinus rhythm, with Lexiscan there is less than 1.[address] segment depression noted from the baseline EKG. The EKG portion of the Lexiscan is nondiagnostic. Cardiac Stress and Resting SPECT Images: Cardiac Stress and Resting SPECT images were obtained using technetium 99m Myoview 32.9 mCi stress and 10.98 mCi at rest. Gated SPECT for analysis of segmental wall motion and calculation of the ejection fraction also done. Prone images were also obtained. Cardiac stress and resting SPECT images show uniform myocardial activity without segmental perfusion abnormality, computer derived ejection fraction is over 65% with no regional wall motion abnormality, right ventricle is normal size and contractility. Conclusion: 1. The EKG portion of the Lexiscan is nondiagnostic. 2. No scintigraphic evidence of reversible ischemia seen, computer derived ejection fraction is over 65% with no regional wall motion abnormality, right ventricle is normal size and contractility. 3. Likely normal Lexiscan Myoview study. Electronically signed by : Roger Cullen MD 09/27/2022 09:55:22
--- NOTE | 2022-09-26 08:00 | CA_ITS ---
FINAL REPORT TECHNIQUE: Real-time imaging was performed of the extracranial carotid arteries in transverse and longitudinal planes with color duplex evaluation of blood flow velocity. Spectral analysis was performed. The cervicovertebral arteries were also examined. Stenosis evaluation based on elevated velocity criteria. CLINICAL HISTORY: DIZZINESS,HTN,HLD FINDINGS: FINDINGS: RIGHT CAROTID: CCA PSV: 82 cm/sec ICA PSV: 94 cm/sec ECA PSV: 111 cm/sec ICA/CCA systolic flow velocity ratio: 1.5 Mild atherosclerotic plaque is noted. Narrowing is classified in the less than 50 % category. LEFT CAROTID: CCA PSV: 88 cm/sec ICA PSV: 102 cm/sec ECA PSV: 90 cm/sec ICA/CCA systolic flow velocity ratio: 1.19 Mild atherosclerotic plaque is noted. Narrowing is classified in the less than 50 % category. VERTEBRALS: Vertebral arteries are patent with antegrade flow and expected spectral waveforms. IMPRESSION: Less than 50% carotid artery stenosis. Patent vertebral arteries. Reviewed, Interpreted and Dictated by Abad Cortez MD Transcribed by Carla Gonzáles Authenticated and [facility]
--- NOTE | 2022-09-26 08:00 | CA_ITS ---
APPROVED REPORT EXAM: Comprehensive 2D, Doppler, and color-flow Echocardiogram Taping Supervisor: Gena Huerta RVT Ht: 5 ft 8 in Wt: 219lbs BSA: 2.12 BP: 140/88 mmHg Indications: SOA,HTN,LD,CAD,AAA 2D Dimensions LVOT 1.99 cm (M/F) 1.5-2.5 LA Volume 37.50 mL LA Volume Index 17.68 mL/m2 (M/F) 16-34 M-Mode Dimensions RVDd 2.37 cm (0.9-2.6) LA Diam 3.85 cm (1.9-4.0) LVDd 5.31 cm (3.5-5.7) Ao Diam 3.01 cm (2.0-3.7) LVDs 3.74 cm (3.5-5.7) IVSd 0.76 cm (0.6-1.1) PWd 0.44 cm (0.6-1.1) EF (Teich) 56.10% FS 29.60% EDV (Teich) 135.90 mL TAPSE 2.25 (<1.7) ESV (Teich) 59.60 mL LV Diastology E Decel Time 250.00 (160-240 msec) E/A Ratio 0.8 MED E' 8.10 (< 7 cm/sec) E'/MED E' Ratio 8.84 (>14) LAT E' 10.20 (<10 cm/sec) E/LAT E' Ratio 7.02 (>14) Aortic Valve AO Peak GR. 6.70 mmHg Mitral Valve MV E Max Michael. 72.00 (40-130 cm/s) MV A Velocity 96.00 (40-130 cm/s) E/A Ratio 0.74 MV Decel. Time 250.00 (160-240 ms) MV PHT 73.00 ms Pulmonary Valve PV Peak Velocity 102.00 (50-150 cm/s) Tricuspid Valve TR P. Velocity 112.00 cm/s RAP Estimate 10.00 mmHg RVSP 15.00 mmHg Left Ventricle Left atrium is mildly enlarged, left ventricle is normal size, mild concentric left ventricular hypertrophy, estimated ejection fraction 55% with no regional wall motion abnormality. Grade 1 diastolic dysfunction seen without tissue Doppler evidence of raise left atrial pressure. Right Ventricle Right atrium and right ventricle are normal size and contractility. Aortic Valve Aortic valve is minimally thickened and fibrosed there is no aortic stenosis or aortic insufficiency. Mitral Valve Mitral valve is grossly normal, there is trace mitral regurgitation. Tricuspid Valve Tricuspid valve grossly normal, there is trace tricuspid regurgitation, tricuspid regurgitation jet velocity is inadequate for calculation of the right ventricular systolic pressure. Pulmonic Valve Pulmonic valve is poorly visualized. Great Vessels Aortic root is normal size. Inferior vena cava is normal size with normal inspiratory collapse. Pericardium No significant pericardial effusion noted. Conclusion 1. Normal left ventricular size, mild concentric left ventricular hypertrophy, estimated ejection fraction 55% with no regional wall motion abnormality, grade 1 diastolic dysfunction seen without tissue Doppler evidence of raise left atrial pressure. 2. Trace mitral and tricuspid regurgitation. 3. No significant pericardial effusion noted. 4. Inferior vena cava is normal size with normal inspiratory collapse. Electronically signed by : Roger Cullen MD 09/27/2022 10:32:43
== END ==
PROVIDERS: PCP Family Medicine; Visit Provider Nurse Practitioner Family
DX: R06.00 Dyspnea, unspecified (principal); R42 Dizziness and giddiness; I25.10 Atherosclerotic heart disease of native coronary artery without angina pectoris; I10 Essential (primary) hypertension; E78.2 Mixed hyperlipidemia; I71.40 Abdominal aortic aneurysm, without rupture, unspecified; R60.0 Localized edema
CPT/HCPCS: 78452; 93017; 93306; 93880; A9502; J2785

== ENCOUNTER → 2022-10-16 15:13 | Outpatient (CLI) | payer BC, SELFPAY | PROVIDERS: PCP Family Medicine; Visit Provider Nurse Practitioner | DX: G47.30 Sleep apnea, unspecified (principal); R40.0 Somnolence; R53.83 Other fatigue | CPT/HCPCS: G0399 ==

== ENCOUNTER → 2023-03-19 14:48 | Outpatient (CLI) | payer BC, SELFPAY ==
--- NOTE | 2023-03-19 14:48 | US_ITS ---
FINAL REPORT TECHNIQUE: Limited sonographic images of the thyroid were obtained. CLINICAL HISTORY: thyroid nodules FINDINGS: The right lobe of the thyroid measures 1.9 x 1.7 x 5.0 cm. The isthmus measures 0.30 cm. The left lobe of the thyroid measures 1.7 x 1.7 x 4.2 cm. Multiple bilateral thyroid nodules are identified. Nodules are both cystic and solid. They are also both hyperechoic and hypoechoic. All nodules are less than 1 cm. There is a nodule in the right lobe of the thyroid measuring 8 mm consistent with TI-RADS category 4. IMPRESSION: Bilateral thyroid nodules with an 8 mm right thyroid lobe nodule consistent with TI-RADS category 4. Recommend continued follow-up in 1 year. Reviewed, Interpreted and Dictated by Abad Cortez MD Transcribed by Eliza Garcia Authenticated and [facility]
== END ==
PROVIDERS: PCP Family Medicine; Visit Provider Otolaryngology
DX: E04.1 Nontoxic single thyroid nodule (principal); E05.90 Thyrotoxicosis, unspecified without thyrotoxic crisis or storm
CPT/HCPCS: 76536

== ENCOUNTER 2024-02-24 13:17 | Outpatient (CLI) | payer MEDICARE, BC, SELFPAY ==
[2024-02-24 14:07] LABS: Basophils # 0.1 K/mm3 (0-0.2); Basophils % 1.2 % (0.1-2.0); Eosinophils # 0.1 K/mm3 (0.0-0.4); Eosinophils % 1.1 % (0.1-12.0); Hemoglobin 14.1 g/dL (12.2-16.2); Lymphocytes # 2.2 K/mm3 (0.7-4.5); Lymphocytes % 33.2 % (10-50); Mean Corpuscular HGB Conc 31.4 g/dL (31.8-35.4); Mean Corpuscular Hemoglobin 30.8 pg (27.0-31.2); Mean Platelet Volume 8.3 fl (7.4-10.4); Monocytes # 0.4 K/mm3 (0.1-1.0); Monocytes % 5.4 % (1.7-9.3); Neutrophils # 3.9 K/mm3 (1.8-7.8); Platelet Count 220 K/mm3 (142-424); Red Blood Count 4.59 M/mm3 (4.20-5.40); Red Cell Distribution Width 14.3 % (11.5-17.5); White Blood Count 6.5 K/mm3 (4.8-10.8)
[2024-02-24 14:59] LABS: Alanine Aminotransferase 39 U/L (12-78); Albumin Level 4.5 g/dl (3.5-5.0); Alkaline Phosphatase 106 U/L (38-126); Aspartate Amino Transferase 61 U/L (14-36); Bilirubin,Direct 0.2 mg/dl (0.0-0.4); Bilirubin,Indirect 0.4 mg/dL (0.0-0.9); Bilirubin,Total 0.6 mg/dl (0.2-1.3); Bilirubin,Unconjugated 0.4 mg/dL (0.0-1.1); Blood Urea Nitrogen 12 mg/dl (7-17); Calcium 9.7 mg/dl (8.4-10.2); Carbon Dioxide 31 mmol/L (22.0-30.0); Chloride 102 mmol/L (98-107); Chol/HDL Ratio 3.8 (1-3.5); Cholesterol 226 mg/dl (140-200); Estimated Glomerular Filt Rate 124 ml/min (>60); GFR (African American) 150 ML/MIN (>60); Glucose 170 mg/dl (74-100); HDL Cholesterol 60 mg/dl (40-60); Sodium 138 mmol/L (136-145); Total Protein,Serum 6.9 g/dl (6.3-8.2); Triglycerides 251 mg/dl (30-150); VLDL Cholesterol 50 mg/dL (0-40)
[2024-02-24 15:10] LABS: Direct LDL Cholesterol 114.06 mg/dL (100-129)
[2024-02-24 15:18] LABS: Free T4 (Free Thyroxine) 0.92 ng/dl (0.78-2.19)
[2024-02-24 15:32] LABS: Thyroid Stimulating Hormone 0.63 uIU/mL (0.465-4.68)
== END 2024-02-24 23:59 ==
LOC: LAB 13:19
PROVIDERS: PCP Family Medicine; Visit Provider Physician Assistant
DX: I25.10 Atherosclerotic heart disease of native coronary artery without angina pectoris (principal); I11.9 Hypertensive heart disease without heart failure; E78.2 Mixed hyperlipidemia; R53.83 Other fatigue; Z98.890 Other specified postprocedural states; Z86.79 Personal history of other diseases of the circulatory system; F17.290 Nicotine dependence, other tobacco product, uncomplicated; I71.40 Abdominal aortic aneurysm, without rupture, unspecified
CPT/HCPCS: 36415; 80048; 80061; 80076; 83735; 84439; 84443; 85025

== ENCOUNTER 2024-03-24 10:52 | Outpatient (CLI) | payer MEDICARE, BC, SELFPAY ==
--- NOTE | 2024-03-24 10:52 | US_ITS ---
FINAL REPORT CLINICAL HISTORY: thyroid nodule COMPARISON: 03/19/2023 FINDINGS: Sonographic images of the thyroid gland were obtained. The right thyroid lobe measures 4.6 x 2.2 x 1.4 cm. in length. The left thyroid lobe measures 3.8 x 1.4 x 1.2 cm. in length. The thyroid isthmus measures 0.3 cm. Multiple nodules are identified. Largest nodule on the right is solid, hypoechoic, with microcalcification measuring 9 x 6 x 6 mm, previously measured 8 x 7 x 6 mm. Finding is consistent with TI-RADS category 5, stable from previous. Multiple other smaller nodules are stable. The echogenicity is normal. IMPRESSION: TI-RADS 5 right thyroid lobe nodule. Recommend additional follow-up in 12 months. Reviewed, Interpreted and Dictated by Kobi Nino III, MD Transcribed by Eliza Garcia Authenticated and . [facility]
== END 2024-03-24 23:59 | disposition home or self-care (01) ==
LOC: RAD 10:52
PROVIDERS: PCP Family Medicine; Visit Provider Otolaryngology
DX: E05.90 Thyrotoxicosis, unspecified without thyrotoxic crisis or storm (principal)
CPT/HCPCS: 76536

== ENCOUNTER 2024-04-19 12:59 | Outpatient (CLI) | payer MEDICARE, BC, SELFPAY ==
[2024-04-19 13:05] VITALS: BP 116/51; PULSE 70; RESP 18; TEMP 36.2; O2SAT 94
[2024-04-19] MEDS: INCLISIRAN SODIUM 284 MG/1.5 ML SYRINGE SQ (13:05)
== END 2024-04-19 13:25 | disposition home or self-care (01) ==
LOC: INF 13:00
PROVIDERS: PCP Family Medicine; Visit Provider Physician Assistant
DX: E78.5 Hyperlipidemia, unspecified (principal)
CPT/HCPCS: 96372; J1306

== ENCOUNTER 2024-07-20 13:04 | Outpatient (CLI) | payer MEDICARE, BC, SELFPAY ==
[2024-07-20 13:16] VITALS: BP 143/68; PULSE 63; RESP 16; TEMP 36.4; O2SAT 97
[2024-07-20] MEDS: INCLISIRAN SODIUM 284 MG/1.5 ML SYRINGE SQ (13:16)
== END 2024-07-20 13:30 | disposition home or self-care (01) ==
LOC: INF 13:06
PROVIDERS: PCP Family Medicine; Visit Provider Physician Assistant
DX: E78.5 Hyperlipidemia, unspecified (principal)
CPT/HCPCS: 96372; J1306

== ENCOUNTER 2024-08-12 11:26 | Day surgery (SDC) | payer MEDICARE, BC, SELFPAY ==
[2024-08-03 15:37] VITALS: BMI 32.5
[2024-08-12] MEDS: LACTATED RINGERS 1000ML 1,000 ML 25 ML IV (11:58)
[2024-08-12 12:03] VITALS: BP 141/78; PULSE 75; RESP 18; TEMP 36.1; O2SAT 92
--- NOTE | 2024-08-12 12:42 | EXP.ANES.CKL ---
[facility] Disclaimer: The information contained in this section may have been updated after the patient was seen, as this information can be updated by other users. 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 Fatigue Edema of both lower extremities Thyroid nodule Hyperthyroidism AAA (abdominal aortic aneurysm) without rupture Acute appendicitis HLD (hyperlipidemia) HTN (hypertension) CAD (coronary artery disease) Surgical History History of tonsillectomy History of cholecystectomy History of hysterectomy History of appendectomy S/P AAA repair H/O breast biopsy History of total right hip replacement Family History Other Cancer Coronary artery disease Heart attack Hyperlipidemia Hypertension Social History Smoking Status: Current every day smoker tobacco type: e-cigarettes alcohol intake: never substance use type: other current occupational status: employed and retired Travel in the last 8 weeks: None household members: significant other caffeine: No [facility] Anesthesia Checklist Patient Identification Patient Identification: Arm Band and Verbal (Name & ) Structural Data Admitted From: Home Planned Operative Procedure/s: Colonoscopy Consent for Planned Operative Procedure(s) Verified: Yes Verified Documents: Surgical Consent and History and Physical NPO Status Verified Time NPO: 11:30 (Water) Additional verifications Anesthesia Reactions: No Hx Blood Transfusions: No Blood Transfusion Reaction: No Airway Assessment Mallampati Score:: Class I C-Spine Mobility Assessed: Yes TMJ Mobility Assessed: Yes Dentition: Good Dentition Neurological Assessment Level of Consciousness: Awake Hx Seizures: No Numbness or tingling in extremities: No Anesthesia Plan Anesthesia Risk discussed: Yes Anesthesia Plan: Verified ASA Class: III Anesthesia Type: MAC
[2024-08-12 15:27] VITALS: O2SAT 94
--- NOTE | 2024-08-12 15:51 | P.HP_ITS ---
History of Present Illness *Admission Date: 08/12/24 *Reason for visit:: Screening *History of present illness: Mrs. Shanna Monge is a 63-year-old female who is here for screening colonoscopy. The examination is deemed medically necessary for screening. The patient has been seen, interviewed and examined prior to the procedure by both myself and the anesthesia provider. [facility] Disclaimer: The information contained in this section may have been updated after the patient was seen, as this information can be updated by other users. 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 Fatigue Edema of both lower extremities Thyroid nodule Hyperthyroidism AAA (abdominal aortic aneurysm) without rupture Acute appendicitis HLD (hyperlipidemia) HTN (hypertension) CAD (coronary artery disease) Surgical History History of tonsillectomy History of cholecystectomy History of hysterectomy History of appendectomy S/P AAA repair H/O breast biopsy History of total right hip replacement Family History Other Cancer Coronary artery disease Heart attack Hyperlipidemia Hypertension Social History Smoking Status: Current every day smoker tobacco type: e-cigarettes alcohol intake: never substance use type: other current occupational status: employed and retired Travel in the last 8 weeks: None household members: significant other caffeine: No Review of Systems Review of Systems Review of systems (narrative): Negative *Cardiovascular Comments: Negative *Gastrointestinal Comments: Negative *Genitourinary Comments: Negative *Musculoskeletal Comments: Negative *Neurologic Comments: Negative Meds Home Medications and Allergies Home Medications ?Medication ?Instructions ?Recorded ?Confirmed ?Type lansoprazole 15 mg capsule,delayed 15 mg PO DAILY GERD 04/23/19 07/20/24 History release carvedilol 25 mg tablet (Coreg) 25 mg PO BID Hypertension 06/01/19 07/20/24 History aspirin 81 mg tablet,delayed 81 mg PO DAILY HEART HEALTH 04/08/21 07/20/24 History release glycopyrrolate 2 mg tablet 2 mg PO DAILY ULCERS 04/09/21 07/20/24 History lisinopril 10 mg tablet 10 mg PO DAILY Hypertension 04/09/21 07/20/24 History paroxetine HCl 10 mg tablet 10 mg PO DAILY 09/03/22 07/20/24 History colesevelam 625 mg tablet 1,250 mg PO BID 03/24/23 07/20/24 History rosuvastatin 40 mg tablet 40 mg PO HS 12/17/23 07/20/24 History terbinafine HCl 250 mg tablet 250 mg PO DAILY 02/16/24 07/20/24 History inclisiran 284 mg/1.5 mL 284 mg (1.5 mL) SQ [id number] #1.5 mL 02/27/24 07/20/24 Rx subcutaneous syringe (Leqvio) chlorhexidine gluconate 0.12 % 1 applic buccal BID mouth wash 03/29/24 07/20/24 History mouthwash metformin 500 mg tablet,extended 500 mg PO BID Diabetes 03/29/24 07/20/24 History release 24 hr pen needle, diabetic 32 gauge x #100 ea 03/29/24 07/20/24 History 1/4 (BD Ultra-Fine Micro Pen Needle) rivaroxaban 2.5 mg tablet 2.5 mg PO BID Blood thinner 03/29/24 07/20/24 History doxycycline hyclate 100 mg tablet 100 mg PO BID #14 tabs 05/28/24 07/20/24 Rx triamcinolone acetonide 0.1 % 1 applic topical BID #15 grams 05/28/24 07/20/24 Rx topical cream sodium,potassium,mag sulfates 17.5 See Rx Instructions PO .COMPLEX 08/11/24 Rx gram-3.13 gram-1.6 gram oral soln #354 mL (Suprep Bowel Prep Kit) clindamycin HCl 150 mg capsule 150 mg PO Q6H 08/12/24 08/12/24 History New Prescriptions to Start Prescriptions: Allergies Allergy/AdvReac Type Severity Reaction Status Date / Time penicillin G [PENICILLIN G] Allergy Unknown Hives Verified 08/12/24 11:59 Penicillins [PENICILLINS] Allergy Unknown Hives Verified 08/12/24 11:59 Sulfa (Sulfonamide Allergy Unknown Hives Verified 08/12/24 11:59 Antibiotics) [SULFA (SULFONAMIDE ANTIBIOTICS)] sulfamethoxazole Allergy Unknown Hives Verified 08/12/24 11:59 [SULFAMETHOXAZOLE] trimethoprim [TRIMETHOPRIM] Allergy Unknown Hives Verified 08/12/24 11:59 Exam Data for Last 24 hours Vital signs and Labs for Last 24 Hours: Temp Pulse Resp BP Pulse Ox O2 Del Method O2 Flow Rate 97.0 F L 75 18 141/78 H 92 L Nasal Cannula 6 08/12/24 12:03 08/12/24 12:03 08/12/24 12:03 08/12/24 12:03 08/12/24 12:03 08/12/24 15:27 08/12/24 15:27 *Routine HEENT Exam Head: Present normocephalic Eye: Present EOMI and PERRL ENT: Present mucous membranes moist *Routine Neck Exam Neck: Present supple *Routine Respiratory Exam Respiratory: Present CTA bilaterally *Routine Cardiovascular Exam Cardiovascular: Present RRR *Routine Abdominal Exam Abdominal: Present soft and normoactive bowel sounds; Absent tenderness *Routine Rectal Exam Rectal:: deferred *Routine Genitalia Exam Genitalia:: deferred *Routine Extremities Exam Extremities: Absent cyanosis, clubbing or edema *Routine Skin Exam Skin: Present warm; Absent rash *Routine Neurological Exam Neurological: Present alert and oriented X3 Assessment and Plan *Assessment and plan (1) Screening for colon cancer: Status: Acute Category: Medical Code(s): Z12.11 - Encounter for screening for malignant neoplasm of colon Plan A/P: 1. Screening for colon cancer is the preprocedural diagnosis. The patient will be anesthetized/sedated using MAC sedation. The patient has been seen and examined. Cardiac and lung assessment prior to the examination is stable. Proceed with planned colonoscopy
--- NOTE | 2024-08-12 15:53 | P.PCN_ITS ---
[facility] Procedure Note Date: 08/12/24 Time: 15:53 Procedure Note:: Colonoscopy Procedure Report: Colonoscopy Endoscopist: Leroy Bansal II, MD Referring physician: Fabrice Anthony MD Date of Procedure: August 12, 2024 Equipment: Olympus 190 variable stiffness pediatric colonoscope Sedation: MAC sedation Indication: Mrs. Pond is a 63-year-old female who is here for follow- up screening/surveillance colonoscopy. She does state that she had a colonoscopy for 5 years ago at which time polyps were removed. The patient does have some hemorrhoidal prolapse and intermittent hemorrhoidal bleeding. She does have a history of IBS?D and takes WelChol which helps. She still has some moderate diarrhea. She does state that her maternal grandmother had colon cancer. Procedure: Prior to the procedure, a history and physical exam was performed, and patient's medications and allergies were reviewed. The risks, benefits and alternatives of the sedation and procedure were discussed with the patient. All questions were answered and informed consent was obtained. The patient was brought to the procedure room. Patient identification and proposed procedure were verified by the physician and the nurse. The patient was placed in a left lateral decubitus position and the scope was passed under direct vision. Throughout the procedure, the patient's blood pressure, pulse, and oxygen saturations were monitored continuously. The colonoscopy was accomplished without difficulty. The patient tolerated the procedure well. Findings: On digital rectal examination there was normal rectal tone. There were no external hemorrhoids. The colonoscope was introduced through the anal canal to the rectum and advanced to the cecum. The ileocecal valve and appendiceal orifice were identified. The scope was advanced a short distance into the ileum which appeared grossly normal. The scope was then withdrawn into the colon. The cecum, ascending, transverse, descending, sigmoid and rectum were grossly normal. There were no mucosal abnormalities identified. Upon retroflexion within the rectum there were grade 2 internal hemorrhoids.The preparation was good throughout with [place] Preparation Score of 8 out of 9. The cecal time was 11 minutes. Impression: 1. Normal colonoscopy with intubation of the terminal ileum 2. Grade 1-2 internal hemorrhoids Plan: The patient will not require screening/surveillance colonoscopy again for 10 years by ACS guidelines. I would encourage bulking FiberCon and continue WelChol on a long-term daily maintenance basis. I will discuss additional treatment options which may include Viberzi or alosetron for her IBS?D.
[2024-08-12 15:55] VITALS: BP 147/80; PULSE 71; RESP 16; TEMP 36.2; O2SAT 92
[2024-08-12 16:13] VITALS: BP 146/73; PULSE 64; RESP 16; O2SAT 94
[2024-08-12 16:25] VITALS: BP 154/78; PULSE 72; RESP 18; O2SAT 95
[2024-08-13 07:33] LABS: POC Glucose,Bedside 156 (70-110)
== END 2024-08-12 17:00 | disposition home or self-care (01) ==
PROVIDERS: PCP Family Medicine; Visit Provider Internal Medicine Gastroenterology
PROC: (CPT G0105; principal; 2024-08-12 12:30)
DX: Z12.11 Encounter for screening for malignant neoplasm of colon (principal); Z86.010 Personal history of colon polyps; K64.1 Second degree hemorrhoids; E11.9 Type 2 diabetes mellitus without complications; Z79.899 Other long term (current) drug therapy
CPT/HCPCS: G0105; 82962; 99221; J7120

== ENCOUNTER 2024-08-18 08:56 | Outpatient (CLI) | payer MEDICARE, BC, SELFPAY ==
[2024-08-18 09:14] LABS: Basophils # 0.1 K/mm3 (0-0.2); Basophils % 0.8 % (0.1-2.0); Eosinophils # 0.1 K/mm3 (0.0-0.4); Hematocrit 40.9 % (37.0-47.0); Hemoglobin 13.6 g/dL (12.2-16.2); Lymphocytes # 1.8 K/mm3 (0.7-4.5); Lymphocytes % 23.3 % (10-50); Mean Corpuscular HGB Conc 33.3 g/dL (31.8-35.4); Mean Corpuscular Hemoglobin 32.4 pg (27.0-31.2); Mean Corpuscular Volume 97.5 fl (81-99); Mean Platelet Volume 8.6 fl (7.4-10.4); Monocytes # 0.4 K/mm3 (0.1-1.0); Monocytes % 5.3 % (1.7-9.3); Neutrophils # 5.3 K/mm3 (1.8-7.8); Neutrophils % 69.6 % (37.0-80.0); Platelet Count 273 K/mm3 (142-424); White Blood Count 7.6 K/mm3 (4.8-10.8)
[2024-08-18 09:41] LABS: Albumin Level 4.4 g/dl (3.5-5.0); Chloride 102 mmol/L (98-107)
[2024-08-18 09:42] LABS: Potassium 4.6 mmoL/L (3.5-5.1); Sodium 140 mmol/L (136-145)
[2024-08-18 09:44] LABS: Anion Gap 14.6 mEq/L (5-15); Bilirubin,Unconjugated 0.3 mg/dL (0.0-1.1); Blood Urea Nitrogen 13 mg/dl (7-17); Carbon Dioxide 28 mmol/L (22.0-30.0); Estimated Glomerular Filt Rate 124 ml/min (>60); GFR (African American) 150 ML/MIN (>60)
[2024-08-18 09:45] LABS: Alanine Aminotransferase 33 U/L (12-78); Alkaline Phosphatase 112 U/L (38-126); Aspartate Amino Transferase 43 U/L (14-36); Bilirubin,Direct 0.1 mg/dl (0.0-0.4); Bilirubin,Indirect 0.3 mg/dL (0.0-0.9); Bilirubin,Total 0.4 mg/dl (0.2-1.3); Calcium 9.5 mg/dl (8.4-10.2); Chol/HDL Ratio 1.8 (1-3.5); Cholesterol 106 mg/dl (140-200); Glucose 195 mg/dl (74-100); HDL Cholesterol 58 mg/dl (40-60); Total Protein,Serum 6.7 g/dl (6.3-8.2); Triglycerides 291 mg/dl (30-150); VLDL Cholesterol 58 mg/dL (0-40)
[2024-08-18 09:58] LABS: Direct LDL Cholesterol < 30.00 mg/dL (100-129)
[2024-08-18 10:01] LABS: Free T4 (Free Thyroxine) 1.04 ng/dl (0.78-2.19)
[2024-08-18 10:16] LABS: Thyroid Stimulating Hormone 0.26 uIU/mL (0.465-4.68)
== END 2024-08-18 23:59 | disposition home or self-care (01) ==
LOC: LAB 08:57
PROVIDERS: PCP Family Medicine; Visit Provider Physician Assistant
DX: I25.10 Atherosclerotic heart disease of native coronary artery without angina pectoris (principal); I10 Essential (primary) hypertension; E78.2 Mixed hyperlipidemia; I71.40 Abdominal aortic aneurysm, without rupture, unspecified; R53.83 Other fatigue; R06.00 Dyspnea, unspecified; R42 Dizziness and giddiness; Z98.890 Other specified postprocedural states; Z86.79 Personal history of other diseases of the circulatory system
CPT/HCPCS: 36415; 80048; 80061; 80076; 84439; 84443; 85025

== ENCOUNTER 2024-09-28 09:05 | Outpatient (CLI) | payer MEDICARE, BC, SELFPAY ==
[2024-09-28 10:11] LABS: Hemoglobin A1C 7.7 % (4.0-6.0)
[2024-09-28 10:43] LABS: Free T4 (Free Thyroxine) 1.09 ng/dl (0.78-2.19)
[2024-09-28 10:59] LABS: Thyroid Stimulating Hormone 1.14 uIU/mL (0.465-4.68)
[2024-09-29 14:31] LABS: Thyroid Peroxidase Antibodies <9 IU/mL (0-34)
[2024-10-01 07:24] LABS: Thyroid Stimulating Immunoglob <0.10 IU/L (0.00-0.55)
== END 2024-09-28 23:59 | disposition home or self-care (01) ==
LOC: LAB 09:08
PROVIDERS: PCP Family Medicine; Visit Provider Family Medicine
DX: R79.89 Other specified abnormal findings of blood chemistry (principal); E11.9 Type 2 diabetes mellitus without complications
CPT/HCPCS: 36415; 83036; 84439; 84443; 84445; 86376

== ENCOUNTER 2025-01-17 12:43 | Outpatient (CLI) | payer MEDICARE, SELFPAY ==
[2025-01-17 12:56] VITALS: BP 126/63; PULSE 80; RESP 16; TEMP 36.6; O2SAT 96
[2025-01-17] MEDS: INCLISIRAN SODIUM 284 MG/1.5 ML SYRINGE SUBCUT (12:56)
== END 2025-01-17 13:10 | disposition home or self-care (01) ==
LOC: INF 12:44
PROVIDERS: PCP Family Medicine; Visit Provider Physician Assistant
DX: E78.5 Hyperlipidemia, unspecified (principal)
CPT/HCPCS: 96372; J1306

== ENCOUNTER 2025-03-02 11:48 | Outpatient (CLI) | payer MEDICARE, SELFPAY ==
--- NOTE | 2025-03-02 | CA_ITS ---
APPROVED REPORT Exam: Pharmacologic Technologist: Trupti Fernando Ht: 5 ft 8 in Wt: 219 lbs BSA: 2.12 m2 HR: 78 bpm BP: 117/72 mmHg Stress Test Details Test: Lexiscan HR Resting HR: 78 bpm Max Heart Rate (APMHR): 155 bpm Max HR Achieved: 96 bpm Target HR (85% APMHR): 132 bpm % of APMHR: 62 Recovery HR: 89 bpm BP Resting BP: 117.0/72.0 mmHg Max BP: 145.0/77.0 mmHg Recovery BP: 145.0/77.0 mmHg ECG Resting ECG: Sinus rhythm, no ischemia Stress ECG Conclusion Symptoms: Mild shortness of air, nausea Arrhythmias/Ectopy: None ST-T Changes: Lexiscan Electronically signed by : Jennifer Montalvo MD 03/06/2025 21:54:54
[2025-03-02] MEDS: SODIUM CHLORIDE 0.9% 10ML SYR (RAD ONLY) 10 ML IV ×2 (12:00→13:30)
--- NOTE | 2025-03-02 13:00 | NM_ITS ---
APPROVED REPORT Exam: Nuclear Stress Test Indication: cad, htn, diabetes, hyperlipidemia, tob use, fm hx, sob, fatigue Patient Location: Outpatient Stress Tech: Trupti Fernando [place] Tech:Any Penaloza DANYELLLily RT (R)(N)(M) Ht: 5 ft 8 in Wt: 218 lbs Bra Size: 42d HR: 80 bpm BP: 117/72 mmHg BSA: 2.12 m2 TID: 1.06 BMI: 33.1 History: cad, htn, diabetes, hyperlipidemia, tob use, fm hx, sob, fatigue Procedure: Patient received 0.4 mg of intravenous Lexiscan, resting heart rate 80 bpm, resting blood pressure 117/72 mmHg, with Lexiscan maximum heart rate achieved was 98 bpm which is % of the maximum predicted heart rate and blood pressure was 130/77 mmHg. With Lexiscan, patient denied any complaint of chest pain. Cardiac Stress and Resting SPECT Images: Cardiac Stress and Resting SPECT images were obtained using technetium 99m Myoview 31.9 mCi stress and 10.36 mCi at rest. Resting and stress imaging in supine and prone positions demonstrate no evidence of fixed or reversible perfusion defects. Gated imaging demonstrates normal global and regional LV systolic function. LVEF is calculated at 61%. Conclusion: No evidence of fixed or reversible perfusion defects. Gated imaging demonstrates normal global and regional LV systolic function. LVEF is calculated at 61%. Electronically signed by : Jennifer Montalvo MD 03/03/2025 14:32:42
[2025-03-02] MEDS: REGADENOSON 0.4MG/5ML SYRINGE 0.4 MG IV (13:30)
[2025-03-02] MEDS: ISOTOPE MYOVIEW (PER STUDY) 1 DOSE IV (14:34)
== END 2025-03-02 23:59 | disposition home or self-care (01) ==
LOC: RAD 11:49
PROVIDERS: PCP Family Medicine; Visit Provider Physician Assistant
DX: I25.119 Atherosclerotic heart disease of native coronary artery with unspecified angina pectoris (principal); R53.83 Other fatigue
CPT/HCPCS: 78452; 93017; 93018; A9502; J2785

== ENCOUNTER 2025-04-05 10:35 | Outpatient (CLI) | payer MEDICARE, SELFPAY ==
--- NOTE | 2025-04-05 10:51 | US_ITS ---
FINAL REPORT CLINICAL HISTORY: 1 year f/u COMPARISON: 03/24/2024 FINDINGS: Sonographic images of the thyroid gland were obtained. The right thyroid lobe measures 4.2 mL in volume. The left thyroid lobe measures 2.8 mL in volume. The thyroid isthmus measures 4 mm. Multiple nodules are present in the thyroid gland bilaterally. There is a 6 mm TI-RADS category 3 nodule in the lower right lobe of the thyroid gland, stable in appearance. There is a 7 mm anterior right thyroid benign-appearing cyst, which was 5 mm on the prior exam. There is a hypoechoic 10 x 7 x 7 mm nodule with microcalcifications, a TI-RADS category 5 nodule, which was previously 9 x 6 x 6 mm in size in the right upper lobe of the thyroid gland. There is an oval hypoechoic left lobe, measuring up to 6 mm in size, was previously 5 mm. There is a 4 mm hyperechoic anterior left lobe nodule, TI-RADS category 3. IMPRESSION: Minimal increase in size of the TI-RADS category 5 lesion, in the upper pole of the right thyroid gland, considered the most suspicious nodule. Suggest FNA for further evaluation. The other less worrisome nodules appear stable in appearance. Reviewed, Interpreted and Dictated by Malissa Pride MD Transcribed by Halina Flores Authenticated and [facility]
== END 2025-04-05 23:59 | disposition home or self-care (01) ==
LOC: RAD 10:36
PROVIDERS: PCP Family Medicine; Visit Provider Otolaryngology
DX: E04.1 Nontoxic single thyroid nodule (principal); R93.89 Abnormal findings on diagnostic imaging of other specified body structures
CPT/HCPCS: 76536

== ENCOUNTER 2025-05-13 09:46 | Outpatient (CLI) | payer MEDICARE, SELFPAY ==
--- OUTSIDE RECORDS SUMMARY | 2024-09-03 10:15 | XMS_ITS ---
[facility] Organization [facility] Address [address] [place] [id number] Care Team Providers Care Stoneworking Sander Name Role Phone Fabrice Anthony Primary Care Provider [phone] Allergies Allergen (clinical drug ingredient) Drug/Non Drug Allergy documented on EMR Reaction Allergy Type Onset Date Status Penicillin Unknown Drug Allergy Active Substance with sulfonamide structure and antibacterial mechanism of action (substance) Sulfa Antibiotics Unknown Drug Allergy Active Results Component Value Reference Range Notes Thyroid Stimulating Immunogl obulin Reviewed date:09/29/2024 01:00:38 PM Interpretation: Performing Lab: Notes/Report: H-TSH Reviewed date:09/29/2024 01:00:50 PM Interpretation: Performing Lab: Notes/Report: H-Glycohemoglobin A1C Reviewed date:09/28/2024 10:56:00 AM Interpretation: Performing Lab: Notes/Report: H-T4 free Reviewed date:09/28/2024 10:55:48 AM Interpretation: Performing Lab: Notes/Report: H-Thyroid Peroxidase Antibod ies Reviewed date:09/29/2024 01:01:31 PM Interpretation: Performing Lab: Notes/Report: REASON FOR VISIT 6 month follow up Medications Medication SIG (Take, Route, Frequency, Duration) Notes Start Date End Date Status Colesevelam HCl 625 mg TAKE 2 TABLETS ONCE DAILY Active BD Pen Needle Micro U/F 32G X 6 MM USE 1 NEEDLE ONCE DAILY Acti ve Xarelto 2.5 MG 1 tablet Orally Two times a day; Duration: 90 days Active Terbinafine HCl 250 MG Take 1 tablet by mouth once daily; Duration: 84 Active valACYclovir HCl 1 GM 1 tablet Orally Th ree times a day; Duration: 7 days 01/07/2024 Active Cinnamon 500 MG 2 cap(s) orally 2 ti mes a day; Duration: 30 day(s) Active Tylenol Extra Strength 500 MG 2 tab(s) orally 4 times daily Active Loratadine 10 MG 1 tab(s) orally once a day Active Vitamin B-12 1000 MCG 1 tab(s) orally on ce a day Active Aspirin 81 MG 1 tab(s) orally twic e daily Active Vitamin C 500 MG 1 tab(s) orally once a day Active Vitamin D3 25 MCG (1000 UT) 1 cap(s) ora lly once a day Active PARoxetine HCl 10 MG 1 tab(s) orally onc e a day; Duration: 30 day(s) Active Magnesium 400MG 1 TAB(S) ONCE A DAY Active Fish Oil 1000MG 1 CAP(S) P.O. ONCE A DAY Active Wellbutrin XL 150 MG 1 tablet in the mor ruby Orally bid Active Prevacid 24HR 15 MG 1 cap(s) orally once a day Active Carvedilol 25 MG 1 tablet with food O rally Twice a day Active Lisinopril 10 MG 1 tab(s) orally once a day Active Rosuvastatin Calcium 40 MG 1 tab(s) Oral ly once a day Active metFORMIN HCl ER 500 mg 3 tablets Orally Once a day Active Immunizations Vaccine Route Administration Date Status Comme hailee Noyola (6months&older) IM Intramuscular 09/03/2024 Administered Vital Signs Blood pressure systolic 136 mm Hg 09/03/20 24 Blood pressure diastolic 74 mm Hg 024 Heart Rate 76 /min 09/03/2024 Height 67.50 in 09/03/2024 Weight 214.2 lbs 09/03/2024 BMI 33.05 kg/m2 09/03/2024 Encounters Encounter Location Date Provider Diagnosis [facility] [address] [place], [place] [id number] 09/03/2024 Fabrice Anthony Type 2 diabetes paolo itus without complication, without long-term current use of insulin E11.9 ; Essential hypertension I10 ; Low TSH level R79.89 ; Gastroesophageal reflux disease without esophagitis K21.9 ; Coronary artery disease involving [place] coronary artery of [place] heart without angina pectoris I25.10 and Encounter for immunization Z23 Assessments Encounter Date Diagnosis (ICD Code) Assessment Notes Treatment Notes Treatment Clinical Notes Section Notes 09/03/2024 Type 2 diabetes mellitus without complication, without long-term current use of insulin (ICD-10 - E11.9) 09/03/2024 Essential hypertension (ICD-10 - I10) 09/03/2024 Low TSH level (ICD-10 - R79.89) Labs from cardiology reviewed in office today, see report 09/03/2024 Gastroesophageal reflux disease without esophagitis (ICD-10 - K21.9) 09/03/2024 Coronary artery disease involving [place] coronary artery of [place] heart without angina pectoris (ICD-10 - I25.10) 09/03/2024 Encounter for immunization (ICD-10 - Z23) Plan Of Treatment Medication Medication Name Sig Start Date Stop Date Notes Prevacid 24HR 15 MG 1 cap(s) orally once a day Carvedilol 25 MG 1 tablet with food O rally Twice a day Lisinopril 10 MG 1 tab(s) orally once a day Rosuvastatin Calcium 40 MG 1 tab(s) Orally once a day metFORMIN HCl ER 500 mg 3 tablets Orally Once a day Treatment Notes Assessment Notes Low TSH level Labs from cardiology reviewed in office today, see report Next Appt Details Follow Up: via phone to repo rt test results, 6 Months, Reason: Provider Name:Fabrice Myrick ry, 08/31/2025 02:30:00 PM, [address] [facility] [address], [place], [place], [id number], Progress Notes * Kiah OLVERAOB :1960 (64 yo F)Acc No.[id number]:09/03/2024 Progress Notes Patient: Sharmin CONCEPCIONraine Provider: Tree Anthony M.D. :1960 A ge:63 Y S ex:Female Date:09/03/2024 Address:[address], [place], [id number] Subjective: * Chief Complaints: * 1 . 6 month follow up. * HPI: C ardiology: 63 year old female presents with c/o Blood Pressure Elevated?Pt here for 6 mo f/u on hypertension, states she is doing well and does not have any concerns. See pt docs for 08/18/2024 lab results. c/o Hyperlipidemia P t is not fasting today. E ndocrinology: c/o Recent Blood Sugars P t here to f/u on DM 2. * ROS: D ERMATOLOGY: no R leno. n o H vianey. G ASTROENTEROLOGY: no N ausea. n o V omiting. U ROLOGY: no D ifficulty urinating. n o B lood in urine. 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 * Hospitalization/Major Diagno stic Procedure: C olitis 03/2008, Chest Pain- [place] 04/04-, Palpatations, High BP- [facility] 06/2016, LT Shoulder Pain- [facility] 05/25/2017. * Family History: F ather: [...] no. Alcohol: No. * Medications: T aking Wellbutrin XL 150 MG Tablet Extended Release 24 Hour 1 tablet in the morning Orally bid , Taking Prevacid 24HR 15 MG Capsule Delayed Release [...] USE 1 NEEDLE ONCE DAILY , Taking valACYclovir HCl 1 GM Tablet 1 tablet Orally Three times a day , Taking Rosuvastatin Calcium 40 MG Tablet 1 tab(s) Orally once a day , Taking Terbinafine HCl 250 MG Tablet Take 1 tablet by mouth once daily , Taking Lisinopril 10 MG Tablet 1 tab(s) orally once a day , Taking Carvedilol 25 MG Tablet 1 tablet with food Orally Twice a day , Taking Xarelto 2.5 MG Tablet 1 tablet Orally Two times a day , Taking metFORMIN HCl ER 500 mg Tablet Extended Release 24 Hour 3 tablets Orally Once a day , Taking Colesevelam HCl 625 mg Tablet TAKE 2 TABLETS ONCE DAILY , Medication List reviewed and reconciled with the patient * Allergies: P enicillin, Sulfa Antibiotics. Objective: * Vitals: W t:214.2, Temp:98.2, BP:136/74, HR:76, Nurse:edith, Ht: 67.50, BMI:33.05. * Examination: E ndocrinology: General Appearance: N AD, BMI 33.39. T hyroid exam:?no enlargement. H eart: R SR. L ungs: c lear to auscultation. E xtremities:?no leg edema. S kin: n ormal, no rash. Assessment: * Assessment: 1. T ype 2 diabetes mellitus without complication, without long-term current use of insulin - E11.9 (Primary) 2 . E ssential hypertension - I10 3 . L ow TSH level - R79.89 4 . G astroesophageal reflux disease without esophagitis - K21.9 5 . C oronary artery disease involving [place] coronary artery of [place] heart without angina pectoris - I25.10 6 . E ncounter for immunization - Z23 ? Plan: * Treatment: 2.?Essential hypertension? Continue Carvedilol Tablet, 25 MG, 1 tablet with food, Orally, Twice a day;?Continue Lisinopril Tablet, 10 MG, 1 tab(s), orally, once a day.??3.?Low TSH level?LAB: H-T4 free (Collection Date & Time - 09/28/2024)* see duplicate order ?LAB: Thyroid Stimulating Immunoglobulin (Collection Date & Time - 09/29/2024)* see duplicate order ?LAB: H-TSH (Collection Date & Time - 09/29/2024)* see duplicate order ?LAB: H-Thyroid Peroxidase Antibodies (Collection Date & Time - 09/29/2024) * see duplicate order Notes: Labs from cardiology reviewed in office today, see report?? 4.?Gastroesophageal reflux disease without esophagitis? Continue Prevacid 24HR Capsule Delayed Release, 15 MG, 1 cap(s), orally, once a day.??5.?Coronary artery disease involving [place] coronary artery of [place] heart without angina pectoris? Continue Rosuvastatin Calcium Tablet, 40 MG, 1 tab(s), Orally, once a day.?? * Immunizations: Fluzone Quad (6months&older) : 0.5 mL (Route: Intramuscular) given by Anali Gomez on Left Deltoid (Encounter for immunization) * Procedure Codes: G 2211 Complex e/m visit add on * Follow Up: v ia phone to report test results, 6 Months * Images: Billing Information: * Visit Code: 48265 Office Visit, Est Pt., Level 4. * Procedure Codes: G2211 Complex e/m visit add on. * Electronic signature of Kelsea Anthony MD on 05/13/2025 at 09:51 AM EDT Sign off status: Pending * Provider: Tree Anthony M.D. Date: 1 Generated for Ted lopez/Juanita/Peeitting on: 0 05/13/2025 09:51 AM EDT History and Physical Notes * HPI (History of Present Illness) Category Sub-Category Detail Notes Category Not es Endocrinology Recent Blood Sugars Pt here to f/u on DM 2 Cardiology Blood Pressure Elevated Pt here for 6 mo f/u on hypertension, states she is doing well and does not have any concerns. See pt docs for 08/18/2024 lab results Hyperlipidemia Pt is not fasting to day Examination Category Sub-Category Detail Notes Category Not es Endocrinology Heart: RSR Lungs: clear to auscultatio n Extremities: no leg edema General Appearance: NAD, BMI 33.39 Skin: normal, no rash Thyroid exam: no enlargement
--- OUTSIDE RECORDS SUMMARY | 2024-11-09 06:30 | XMS_ITS ---
Author Organization [facility] Address [address] [place] [phone] Care Team Providers Care Supervisory Aide Name Role Phone Fabrice Anthony Primary Care Provider Allergies Allergen (clinical drug ingredient) Drug/Non Drug Allergy documented on EMR Reaction Allergy Type Onset Date Status Penicillin Unknown Drug Allergy Active Substance with sulfonamide structure and antibacterial mechanism of action (substance) Sulfa Antibiotics Unknown Drug Allergy Active Results Component Value Reference Range Notes Influenza Screen (in house) Reviewed date:11/09/2024 11:21:20 AM Interpretation: Performing Lab: Notes/Report: results Neg Covid test (in house) Reviewed date:11/09/2024 11:21:07 AM Interpretation: Performing Lab: Notes/Report: Result: Neg REASON FOR VISIT headache, earache and coughing Medications Medication SIG (Take, Route, Frequency, Duration) Notes Start Date End Date Status Lisinopril 10 MG 1 tab(s) orally once a day; Duration: 90 days Active Rosuvastatin Calcium 40 MG 1 tab(s) Oral ly once a day; Duration: 90 days Active Zithromax Z-David 250 MG as directed Orall y once daily; Duration: 5 day(s) 11/09/2024 Active Promethazine-DM 6.25-15 MG/5ML 5 ml as needed Orally every 6 hrs 11/09/2024 Active dexAMETHasone 2 MG 1 tablet Orally ever y 12 hrs; Duration: 5 day(s) 11/09/2024 Active Carvedilol 25 MG 1 tablet with food Orally Twice a day Active Prevacid 24HR 15 MG 1 cap(s) orally once a day Active Xarelto 2.5 MG 1 tablet Orally Two times a day; Duration: 90 days Active metFORMIN HCl ER 500 mg 3 tablets Orally Once a day Active Colesevelam HCl 625 mg TAKE 2 TABLETS ON CE DAILY Active Loratadine 10 MG 1 tab(s) orally once a day Active Tylenol Extra Strength 500 MG 2 tab(s) orally 4 times daily Active valACYclovir HCl 1 GM 1 tablet Orally Th ree times a day; Duration: 7 days 01/07/2024 Active BD Pen Needle Micro U/F 32G X 6 MM USE 1 NEEDLE ONCE DAILY Acti ve Terbinafine HCl 250 MG Take 1 tablet by mouth once daily; Duration: 84 Active Cinnamon 500 MG 2 cap(s) orally 2 ti mes a day; Duration: 30 day(s) Active Aspirin 81 MG 1 tab(s) orally twic e daily Active Vitamin B-12 1000 MCG 1 tab(s) orally on ce a day Active Vitamin D3 25 MCG (1000 UT) 1 cap(s) ora lly once a day Active Vitamin C 500 MG 1 tab(s) orally once a day Active PARoxetine HCl 10 MG 1 tab(s) orally onc e a day; Duration: 30 day(s) Active Wellbutrin XL 150 MG 1 tablet in the mor ruby Orally bid Active Fish Oil 1000MG 1 CAP(S) P.O. ONCE A DAY Active Magnesium 400MG 1 TAB(S) ONCE A DAY Active Vital Signs Blood pressure systolic 140 mm Hg 11/09/20 24 Blood pressure diastolic 80 mm Hg 024 Heart Rate 90 /min 11/09/2024 Height 67.50 in 11/09/2024 Weight 215.6 lbs 11/09/2024 BMI 33.27 kg/m2 11/09/2024 Encounters Encounter Location Date Provider Diagnosis [facility] [address] [place], [place] [id number] 11/09/2024 Fabrice Anthony Acute URI J06.9 Assessments Encounter Date Diagnosis (ICD Code) Assessment Notes Treatment Notes Treatment Clinical Notes Section Notes 11/09/2024 Acute URI (ICD-10 - J06.9) Plan Of Treatment Medication Medication Name Sig Start Date Stop Date Notes Zithromax Z-David 250 MG as directed Orall y once daily; Duration: 5 day(s) 11/09/2024 Promethazine-DM 6.25-15 MG/5ML 5 ml as n eeded Orally every 6 hrs 11/09/2024 dexAMETHasone 2 MG 1 tablet Orally ever y 12 hrs; Duration: 5 day(s) 11/09/2024 Next Appt Details Follow Up: prn, Reason: Provider Name:Fabricevenkat Myrick ry, 08/31/2025 02:30:00 PM, [address] [facility] [address], [address], [place], [place], [phone], Progress Notes * Sharmin OLVERAineDOB :1960 (64 yo F)Acc No.[id number]:11/09/2024 Progress Notes Patient: Alexus CONCEPCIONine Provider: Tree Anthony M.D. :1960 A ge:64 Y S ex:Female Date:11/09/2024 Address:[address] [place] [address] [address], [id number] Subjective: * Chief Complaints: * 1 . Headache, earache and coughing. * HPI: E NT/respiratory: 64 year old female presents with c/o cough P t complains of greenish yellow sputum production cough for about 6 days. Associated with wheezing, shortness of breath, nasal congestion and bodyaches. * ROS: D ERMATOLOGY: no R leno. n o H vianey. G ASTROENTEROLOGY: no N ausea. n o V omiting. U ROLOGY: no D ifficulty urinating. n o B lood in urine. 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 * Hospitalization/Major Diagno stic Procedure: C olitis 03/2008, Chest Pain- [place] 04/04-, Palpatations, High BP- [facility] 06/2016, LT Shoulder Pain- [facility] 05/25/2017. * Family History: F [...] in the morning Orally bid , Taking PARoxetine HCl 10 MG Tablet [...] tablet by mouth once daily , Taking Xarelto 2.5 MG Tablet 1 tablet Orally Two times a day , Taking Colesevelam HCl 625 mg Tablet TAKE 2 TABLETS ONCE DAILY , Taking metFORMIN HCl ER 500 mg Tablet Extended Release 24 Hour 3 tablets Orally Once a day , Taking Carvedilol 25 MG Tablet 1 tablet with food Orally Twice a day , Taking Prevacid 24HR 15 MG Capsule Delayed Release 1 cap(s) orally once a day , Taking Rosuvastatin Calcium 40 MG Tablet 1 tab(s) Orally once a day , Taking Lisinopril 10 MG Tablet 1 tab(s) orally once a day , Medication List reviewed and reconciled with the patient * Allergies: P enicillin, Sulfa Antibiotics. Objective: * Vitals: W t:215.6, Temp:98.8, BP:140/80, HR:90, O2 Sat:92% on RA, Nurse:kk, Ht: 67.50, BMI:33.27. * Examination: E NT/Respiratory: General Appearance: N AD. E yes: P ERRLA, sclera clear. O ral cavity : erythema without exudate on pharynx. N stella : n o cervical lymphadenopathy. H eart : R RR, normal S1 S2. L ungs: good air movement, bilateral occasional expiratory wheezes. Assessment: * Assessment: 1. Keke dee URI - J06.9 (Primary) Plan: * Treatment: Value Reference Range r esults Neg * Nasrin Gomezira 11/09/2024 10:34: 22 AM > , Provider reviewed results while patient in office. ?LAB: Covid test (in house) (Collection Date & Time - 11/09/2024)* Value Reference Range R esult: Neg * Nasrin Gomezira 11/09/2024 10:34: 38 AM > , Provider reviewed results while patient in office. * Procedure Codes: G 2211 Complex e/[place], [address] [place], [address] Flu Test- Nasal Swab, Modifiers: QW , 08896 COVID TEST IN HOUSE, Modifiers: QW * Follow Up: p rn * Images: Billing Information: * Visit Code: 89490 Office Visit, Est Pt., Level 3. * Procedure Codes: G2211 Complex e/[place]. [address] [place]. [address] Flu Test- Nasal Swab. Modifiers: QW 92527 COVID TEST IN HOUSE. Modifiers: QW * Electronic signature of Kelsea Anthony MD on 05/13/2025 at 09:51 AM EDT Sign off status: Pending * Provider: Tree Anthony M.D. Date: 01/10/2024 Generated for Ted lopez/Juanita/Natty on: 0 05/13/2025 09:51 AM EDT History and Physical Notes * HPI (History of Present Illness) Category Sub-Category Detail Notes Category Not es ENT/respiratory cough Pt complains of greenish yellow sputum production cough for about 6 days. Associated with wheezing, shortness of breath, nasal congestion and bodyaches Examination Category Sub-Category Detail Notes Category Not es ENT/Respiratory Oral cavity : erythema without exudate on pharynx Neck : no cervical lymphade nopathy Heart : RRR, normal S1 S2 Lungs: good air movement, b ilateral occasional expiratory wheezes General Appearance: NAD Eyes: PERRLA, sclera clear
--- OUTSIDE RECORDS SUMMARY | 2025-03-04 10:30 | XMS_ITS ---
[facility] Address [address] [place] [id number] Care Team Providers Care Jewelry Sales Coordinator Name Role Phone RajJamshidFabriec Primary Care Provider Allergies Allergen (clinical drug [...] 58 Performing Lab: Notes/Report: Test performed by [facility] [address] [place] [address] , [address], [place] [address] Keaton Calixto MD, Test Lead Application Testing CLIA: [id number] Sodium 138 135-145 mmol/L Potassium 5.4 3.5-5.3 [...] Interpretation:9.5 Performing Lab: Notes/Report: Test performed by [facility] [address] [place], [place] [address] [place] [address] Keaton Calixto MD, Test Lead Application Testing CLIA: [id number] Hemoglobin A1C 9.5 <5.7 % The following HbA1c ranges recommended by the [place] [employer] (ADA) may be used as an aid in the diagnosis of diabetes mellitus. HbA1c Suggested Diagnosis >=6.5% Diabetic 5.7% - 6.4% Pre-Diabetic <5.7% Non-Diabetic P-Lipid Panel Reviewed date:03/08/2025 05:04:54 PM Interpretation:trigs 466 Performing Lab: Notes/Report: Test performed by [facility] [address] [place] [address] [place] [address] Keaton Calixto MD, Test Lead Application Testing CLIA: [id number] Cholesterol 116 <200 mg/dL Triglycerides 466 <150 [...] Interpretation:Normal Performing Lab: Notes/Report: Test performed by [facility] [address] [place] [address] , [address], [place] [address] Keaton Calixto MD, Test Lead Application Testing CLIA: [id number] TSH reflex to FT4 2.50 0.43-5.25 mU/L P-Microalbumin/Creatinine, R andom Urine Sample Reviewed date:03/08/2025 05:04:54 PM Interpretation:a/c 63 Performing Lab: Notes/Report: Test performed by [facility] [address] [place] [address] , [address], [place] [address] Keaton Calixto MD, Test Lead Application Testing CLIA: [id number] Albumin/Creatinine Ratio, Urine 63 0-30 ug/mg Microalbumin, Urine, Random 7.4 Creatinine, Urine 117.9 Estimated Average Glucose Reviewed date:03/08/2025 05:04:54 PM Interpretation: Performing Lab: Notes/Report: Test performed by [facility] [address] [place] [address] , [address], [place] [address] Keaton Calixto MD, Test Lead Application Testing CLIA: [id number] Estimated Average Glucose (eAG) 226 Estimated Average [...] Status Risk Notes Problem Obese class I ([id number]) BMI 33.0-33.9,a dult (Z68.33) Active confirmed Vital Signs Blood pressure systolic 132 mm Hg 03/04/20 25 Blood pressure diastolic 80 mm Hg 025 Heart Rate 105 /min 03/04/2025 Height 67.50 in 03/04/2025 Weight 216 lbs 03/04/2025 BMI 33.33 kg/m2 03/04/2025 Encounters Encounter Location Date Provider Diagnosis [facility] [address], [place] [id number] 03/04/2025 Fabrice Anthony Type 2 diabetes paolo itus without complication, without long-term current use of insulin E11.9 ; Essential hypertension I10 ; Coronary artery disease involving knik coronary artery of knik heart without angina pectoris I25.10 ; Mixed [...] - I10) 03/04/2025 Coronary artery disease involving knik coronary artery of knik heart without angina pectoris (ICD-10 - I25.10) [...] Up: 6 Months, Reason: Provider Name:Fabrice Myrick ry, 08/31/2025 02:30:00 PM, [address], [address], [place], [place], [id number], Progress Notes * Alexus OLVERAineDOB :1960 (64 yo F)Acc No.[id number]:03/04/2025 Progress Notes Patient: Alexus CONCEPCIONine Provider: Tree Anthony M.D. :1960 A ge:64 Y S ex:Female Date:03/04/2025 Address:[address] [facility] [address], [facility], [id number] Subjective: * Chief Complaints: * 1 . 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 * Hospitalization/Major Diagno stic Procedure: C olitis 03/2008, Chest Pain- [facility] 04/04-, Palpatations, High BP- [facility] 06/2016, LT Shoulder Pain- [facility] 05/25/2017. * Family History: F [...] 3 . C oronary artery disease involving knik coronary artery of knik heart without angina pectoris - I25.10? 4. M ixed hyperlipidemia - E78.2 5 . G astroesophageal reflux disease without esophagitis - K21.9 6 . N on morbid obesity due to excess calories - E66.09 7 . 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 B VT 33.0-33.9,adult - Z68.33 ? Plan: * Treatment: [...] See phone encounter 3.?Coronary artery disease involving knik coronary artery of knik heart without angina pectoris? Continue Xarelto Tablet, [...] riglycerides 466 H <150 - mg/dL * Merline Cristine 03/08/2025 05: 04:29 PM > See phone encounter 5.?Gastroesophageal reflux disease without esophagitis? Continue Prevacid 24HR Capsule Delayed Release, 15 MG, 1 cap(s), orally, once a day.?? * Labs: * L ab: Estimated Average Glucose (Collection Date & Time - 03/04/2025 01:58 PM) Value Reference Range E stimated Average Glucose 226 - mg/dL * [facility], IT support 03/05/2025 10:50:05 : This order was created by the Interface. Merline Cristine 03/08/2025 05:04:29 PM > See phone encounter * Procedure Codes: G 2211 Complex e/m visit add on, G8752 MOST RECENT SYSTOLIC BP < 140MM HG, G8754 MOST RECENT DIASTOLIC BP < 90MM HG, 3046F HEMOGLOBIN A1C LEVEL > 9.0% * Follow Up: 6 Months * Images: Billing Information: * Visit Code: 82045 Office Visit, Est Pt., Level 4. * Procedure Codes: G2211 Complex e/m visit add on. G8752 MOST RECENT SYSTOLIC BP < 140MM HG. G8754 MOST RECENT DIASTOLIC BP < 90MM HG. 3046F HEMOGLOBIN A1C LEVEL > 9.0%. * Electronic signature of Kelsea Anthony MD on 05/13/2025 at 09:53 AM EDT Sign off status: Pending * Provider: Tree Anthony M.D. Date: 0 03/04/2025 Generated for Ted lopez/Juanita/Peeitting on: 0 05/13/2025 09:53 AM EDT History and Physical Notes * [...]
--- OUTSIDE RECORDS SUMMARY | 2025-05-13 09:51 | XMS_ITS | Clinical Summary ---
Author Organization [facility] Address [address] [place] [address] Phone [email or web address] Care Team Providers Care Health Services Director Name Role Phone Fabrice Anthony MD Primary Care Provider [phone] Allergies Active Allergy Reactions Criticality Noted Date Comments Penicillins Itching 07/23/2016 Sulfa Antibiotics Itching 07/23/2016 Medications aspirin EC 81 MG EC tablet Take 81 mg by mouth daily. Active B Complex-Biotin- FA (SUPER B-COMPLEX) capsule Take 1 capsule by mouth daily. Active carvedilol (COREG) 25 MG tablet 2 02/07/2019 Active cholecalciferol (VITAMIN D-3) 1000 units tablet Take 1,000 Units by mouth daily. Active estradiol (VIVELLE-DOT) 0.025 MG/24HR 01/11/2019 Activ e lansoprazole (PREVACID) [address] capsule 01/06/2019 Activ e SAXENDA 18 MG/3ML solution pen-injector 01/30/2019 Active omega-3 (FISH OIL) 1000 MG capsule Take 1,000 mg by mouth daily. Active rosuvastatin (CRESTOR) 40 MG tablet Take 40 mg by mouth daily. Active Ascorbic Acid (VITAMIN C) 500 MG tablet Take 500 mg by mouth daily. Active magnesium 30 MG tablet Take 30 mg by mouth 2 (two) times a day. Active XARELTO 2.5 MG tablet 04/02/2019 Active metFORMIN XR (GLUCOPHATE-XR) 500 MG 24 hr tablet 04/19/2019 Active loratadine (CLARITIN) 10 MG tablet Take 10 mg by mouth 1 (one) time each day. 05/29/2021 Active lisinopril (ZESTRIL) 10 MG tablet Take 10 mg by mouth 1 (one) time each day. 05/08/2021 Active BD Pen Needle Micro U/F 32G X 6 MM misc 04/10/2021 Active glycopyrrolate (ROBINUL) 2 MG tablet Take 2 mg by mouth 1 (one) time each day. 06/16/2021 Active Active Problems Problem Noted Date Diagnosed Date Nontraumatic hematoma of soft tissue 04/18/2011 Overview (04/15/2018): Routine general medical exam ination at a health care facility 04/10/2011 Overview (04/15/2018): Laboratory exam ordered as p art of routine general medical examination 04/09/2011 Overview (04/15/2018): Other chest pain 04/08/2011 Overview (04/15/2018): Chest pain 04/04/2011 Overview (04/15/2018): Other specified gastritis 08/02/2010 Overview (04/15/2018): Esophageal reflux 07/26/2010 Overview (04/15/2018): Rash and other nonspecific skin eruption 010 Overview (04/15/2018): Screening for hypertension 02/01/2010 Overview (04/15/2018): Tobacco use disorder 01/09/2010 Overview (04/15/2018): Health examination of defined subpopulation 06/2010 Overview (04/15/2018): Other examination of ears and hearing 09/21/2009 Overview (04/15/2018): Ganglion 06/27/2009 Overview (04/15/2018): Other hand sprain and strain 03/07/2009 Overview (04/15/2018): Personal history of tobacco use, presenting hazards to health 03/07/2009 Overview (04/15/2018): Other synovitis and tenosynovitis 02/20/2009 Overview (04/15/2018): Chronic ischemic heart disease 10/20/2008 Overview (04/15/2018): Degeneration of cervical intervertebral disc 01/2007 Overview (04/15/2018): Other specified disorders of rotator cuff syndrome of shoulder and allied disorders 10/19/2007 Overview (04/15/2018): Resolved Problems Problem Noted Date Diagnosed Date Resolved Date Acute upper respiratory infection 12/02/2011 05/03/2019 Overview (04/15/2018): Acute sinusitis 11/29/2008 05/03/2019 Overview (04/15/2018): Sialoadenitis 11/29/2008 05/03/2019 Overview (04/15/2018): Immunizations Immunization Administration Dates Next Due Covid-19 (Moderna [place], 12yrs+) (CVX-207) 2020,04/17/2021 Social History Tobacco Use Types Packs/Day Years Used Date Smoking Tobacco: Former Cigarettes Q uit: 2014 Smokeless Tobacco: Never Intimate Partner Violence Answer Date R ecorded Insults You Not on file 02/27/2021 Threatens You Not on file 02/27/2021 Screams at You Not on file 02/27/2021 Physically Hurt Not on file 02/27/2021 Intimate Partner Violence Score Not on file 02/27/2021 Depression Answer Date Recorded PHQ Total Score 0 08/31/2022 Stress Answer Date Recorded Stress in your Life Not on file 09/19/2024 Dealing with Stress 3 09/19/2024 Comments Unknown Sex and Gender Information Value Date Recorded Sex Assigned at Not on file Legal Sex Female 8:19 AM CDT Gender Identity Not on file Sexual Orientation Not on file Last Filed Vital Signs Vital Sign Reading Time Taken Comments Blood Pressure 118/78 09/12/2021 1:19 PM EDT Pulse 88 09/12/2021 1:19 PM EDT Temperature 36.1 C (97 F) 09/12/2021 1:19 PM EDT Respiratory Rate 18 08/14/2021 8:35 AM EDT Oxygen Saturation 96% 09/12/2021 1:19 PM EDT Inhaled Oxygen Concentration - - Weight 97.1 kg (214 lb) 08/14/2021 8:35 AM EDT Height 172.7 cm (5' 8 ) 08/14/2021 8:35 AM EDT Body Mass Index 32.54 08/14/2021 8:35 AM EDT Plan of Treatment Health Maintenance Due Date Last Done Comments Dental Cleaning/Exam 1960 Cervical Cancer Screening 1975 Tetanus Diphtheria and Pertussis Immunization (1 - Tdap) 1978 Colorectal Cancer Screening 1989 Osteoporosis screening DEXA 2009 Pneumococcal: 65+ Years (1 of 1 - PCV) 2009 Zoster Immunization (1 of 2) 2009 Breast Cancer Screening 07/01/2022 07/01/20 20, 09/03/2018, 04/18/2017, Additional history exists Covid-19 Immunization ( season) 2024 05/17/2021, 04/17/2021 Influenza Immunization (Season Ended) 2025 HIB Immunization Aged Out No longer e ligible based on patient's age to complete this topic HPV Immunization Aged Out No longer e ligible based on patient's age to complete this topic Hepatitis A Immunization Aged Out No longer eligible based on patient's age to complete this topic Hepatitis B Immunization Aged Out No longer eligible based on patient's age to complete this topic Polio Immunization Aged Out No longer eligible based on patient's age to complete this topic Insurance [employer] [place] [facility] Address: [address] [place] [address] [id number] [place] [address] Care Teams Health Services Director Relationship Specialty Start Date End Date Fabrice Anthony MD [address] [facility] [address] [place], [place] [phone] PCP - General Counter Intelligence Agent 05/18/21
--- OUTSIDE RECORDS SUMMARY | 2025-05-13 09:51 | XMS_ITS | Clinical Summary ---
Author Organization [facility] Address [address] [place] [address] Phone Care Team Providers Care Supervisor Grinding Name Role Phone Fabrice Anthony MD Primary Care Provider [phone] Social History Tobacco Use Types Packs/Day Years Used Date Smoking Tobacco: Never Assessed Comments Unknown Sex and Gender Information Value Date Recorded Sex Assigned at Not on file Legal Sex Female 3:11 AM EDT Gender Identity Not on file Sexual Orientation Not on file Plan of Treatment Health Maintenance Due Date Last Done Comments Annual Wellness Exam 1962 Hepatitis C Screening 1977 DTaP/TDaP/Td (1 - Tdap) 1978 Cologuard 2004 Colon Cancer Screening 2004 Colonoscopy 2004 FIT 2004 Sigmoidoscopy 2004 Virtual Colonography 2004 Pneumococcal Vaccine 50+ (1 of 1 - PCV) 2009 Zoster (1 of 2) 2009 COVID-19 Vaccine (2023-2 5 season) 2024 Bone Density Screening 2024 Influenza Vaccine (Season Ended) 2025 Hepatitis B Vaccine Aged Out No longe r eligible based on patient's age to complete this topic Meningococcal B Vaccine Aged Out No l onger eligible based on patient's age to complete this topic Care Teams Supervisor Grinding Relationship Specialty Start Date End Date Fabrice Anthony MD [address] [place] [address] [place] [id number] PCP - General Family Medicine 08/23/15
--- OUTSIDE RECORDS SUMMARY | 2025-05-13 09:52 | XMS_ITS | Patient Health Record ---
[facility] Address [address] [place] [id number] Care Team Providers Care Esl Professor Name Role Phone Fabrice Anthony Primary Care [...] date:09/29/2024 01:01:31 PM Interpretation: Performing Lab: Notes/Report: Influenza Screen (in house) Reviewed date:11/09/2024 11:21:20 AM Interpretation: Performing Lab: Notes/Report: results Neg Covid test (in house) Reviewed date:11/09/2024 11:21:07 AM Interpretation: Performing Lab: Notes/Report: Result: Neg Estimated Average Glucose Reviewed date:03/08/2025 05:04:54 PM Interpretation: Performing Lab: Notes/Report: Test performed by [facility], [facility] , [address], [place] [address] Keaton Calixto MD, New Vehicle Sales Consultant CLIA: [id number] Estimated Average Glucose (eAG) 226 Estimated Average Glucose (eAG) is calculated using the equation eAG = (28.7 x HbA1c) - 46.7 based on the guidelines established by the ADA. If the patient has certain diseases including kidney disease, sickle cell anemia, thalassemia, or is taking medications such as dapsone, erythropoietin, or iron, eAG should not be evaluated. P-Microalbumin/Creatinine, R andom Urine Sample Reviewed date:03/08/2025 05:04:54 PM Interpretation:a/c 63 Performing Lab: Notes/Report: Test performed by [facility] [address] [place] [address] , [place] [address] Keaton Calixto MD, New Vehicle Sales Consultant CLIA: [id number] Albumin/Creatinine Ratio, Urine 63 0-30 ug/mg Microalbumin, Urine, Random 7.4 Creatinine, Urine 117.9 P-TSH reflex to FT4 Reviewed date:03/08/2025 05:04:54 PM Interpretation:Normal Performing Lab: Notes/Report: Test performed by [facility] [address] [place] [address] , [address], [place] [address] Keaton Calixto MD, New Vehicle Sales Consultant CLIA: [id number] TSH reflex to FT4 2.50 0.43-5.25 mU/L P-Lipid Panel Reviewed date:03/08/2025 05:04:54 PM Interpretation:trigs 466 Performing Lab: Notes/Report: Test performed by [facility] [address] [place] [address] , [address], [place] [address] Keaton Calixto MD, New Vehicle Sales Consultant CLIA: [id number] Cholesterol 116 <200 mg/dL Triglycerides 466 <150 [...] SEE COMMENT Units: mg/dL % Change: - P-Hemoglobin A1C Reviewed date:03/08/2025 05:04:54 PM Interpretation:9.5 Performing Lab: Notes/Report: Test performed by [facility], [address] [facility], [place] [address] Keaton Calixto MD, New Vehicle Sales Consultant CLIA: [id number] Hemoglobin A1C 9.5 <5.7 % The following HbA1c ranges recommended by the [place] [employer] (ADA) may be used as an aid in the diagnosis of diabetes mellitus. HbA1c Suggested Diagnosis >=6.5% Diabetic 5.7% - 6.4% Pre-Diabetic <5.7% Non-Diabetic P-Comprehensive Metabolic Pa amanda (CMP) Reviewed date:03/08/2025 05:04:53 PM Interpretation:K 5.4, Cl 96, Calc 10.5, Alk Phos 171, AST 58 Performing Lab: Notes/Report: Test performed by [facility] , [address], [place] [address] Keaton Calixto MD, New Vehicle Sales Consultant CLIA: [id number] Sodium 138 135-145 mmol/L Potassium 5.4 3.5-5.3 [...] 0.5 <0.2-1.2 mg/dL A/G Ratio 1.9 1.1-2.5 TSI Reviewed date:10/01/2024 08:28:18 AM Interpretation:Normal Performing Lab: Notes/Report: TSI <0.10 0.00-0.55 IU/L Performed at: [address] [id number] Color Television Console Monitor: Avila Negron MD, Phone: [phone] H-TSH Reviewed date:09/30/2024 08:25:56 AM Interpretation:Normal Performing Lab: Notes/Report: TSH 1.14 0.465-4.68 uIU/mL H-Glycohemoglobin A1C Reviewed date:09/30/2024 08:25:56 AM Interpretation:7.7 Performing Lab: Notes/Report: HGBA1C 7.7 4.0-6.0 % < 6% Non-Diabetic Level < 7% Controlled Diabetic Level > 8% Poorly Controlled Diabetic Level H-T4 free Reviewed date:09/30/2024 08:25:56 AM Interpretation:Normal Performing Lab: Notes/Report: T4F 1.09 0.78-2.19 ng/dl H-Thyroid Peroxidase Antibod ies Reviewed date:10/01/2024 08:28:18 AM Interpretation:Normal Performing Lab: Notes/Report: TPO <9 0-34 IU/mL Performed at: [address] [id number] Color Television Console Monitor: Gallito Solis PhD, Phone: [phone] Reason For Referral No Information Medications Medication SIG (Take, Route, Frequency, Duration) Notes Start Date End Date Status Vitamin C 500 MG 1 tab(s) orally once a day Active Vitamin D3 25 MCG (1000 UT) 1 cap(s) orally once a day A ctive Vitamin B-12 1000 MCG 1 tab(s) orally once a day Active Aspirin 81 MG 1 tab(s) orally twic e daily Active Rosuvastatin Calcium 40 MG 1 tab(s) Oral ly once a day; Duration: 90 days Active Wellbutrin XL 150 MG 1 tablet in the mor ruby Orally bid Active BD Pen Needle Micro U/F 32G X 6 MM USE 1 NEEDLE ONCE DAILY Acti ve PARoxetine HCl 10 MG 1 tab(s) orally onc e a day; Duration: 30 day(s) Active valACYclovir HCl 1 GM 1 tablet Orally Th ree times a day; Duration: 7 days 01/07/2024 Active Lisinopril 20 MG 1 tab(s) orally once a day; Duration: 90 days Active Magnesium 400MG 1 TAB(S) ONCE A DAY Active Fish Oil 1000MG 1 CAP(S) P.O. ONCE A DAY Active metFORMIN HCl ER 500 mg 3 tablets Orally Once a day; Duration: 90 days Active Colesevelam HCl 625 MG TAKE 2 TABLETS BY MOUTH ONCE DAILY; Duration: 90 Active Prevacid 24HR 15 MG 1 cap(s) orally once a day Active Diflucan 150 MG 1 tablet Orally once ; Duration: 10 days 03/22/2025 Active Cinnamon 500 MG 2 cap(s) orally 2 ti mes a day; Duration: 30 day(s) Active Leqvio 284 MG/1.5ML as directed Subcutan eous Every 6 Months Active Metoprolol Succinate ER 25 MG 1 tablet Orally Once a day A ctive Xarelto 2.5 MG 1 tablet Orally Two times a day; Duration: 90 days Active Jardiance 25 MG 1 tablet Orally Once a day; Duration: 90 days 03/10/2025 Active Tylenol Extra Strength 500 MG 2 tab(s) orally 4 times daily Active Loratadine 10 MG 1 tab(s) orally once a day Active Immunizations Vaccine Route Administration Date Status Comme nts COVID 19 Moderna Unknown 06/07/2021 Administered Fluzone PF Quad (6-35 months) Unknown 08/26/2016 Administered Fluzone PF Quad (6-35 months) Unknown 08/15/2017 Administered Fluzone PF Quad (6-35 months) Unknown 08/28/2018 Administered Fluzone Quad (6months&older) Unknown 08/16/2017 Administered Fluzone Quad (6months&older) Unknown 08/28/2018 Administered Fluzone Quad (6months&older) IM Intramuscular 09/01/2020 Administered Fluzone Quad (6months&older) IM Intramuscular 10/01/2021 Administered Fluzone Quad (6months&older) IM Intramuscular 10/30/2023 Administered Fluzone Quad (6months&older) IM Intramuscular 09/03/2024 Administered xFluzone (6mos and older)-trivalent IM Intramuscular 10/02/2013 Administered xFluzone (6mos and older)-trivalent IM Intramuscular 08/24/2014 Administered Problems Problem Type SNOMED Code ICD Code Onset Dates Problem Status W/U Status Risk Notes Problem Essential hypertension (07948279) Essential hypertension (I10) Active confirmed Problem Morbid obesity (297934625) Morbid obesity (E66.01) Active confirmed Problem Hypertriglyceridemia (851763190) Hypertriglyceridemia (E78.1) Active confirmed Problem Obese class I (965755137976939) BMI 33.0-33.9,adult (Z68.33) Active confirmed Problem Mixed hyperlipidemia (087779061) Mixed hyperlipidemia (E78.2) Active confirmed Problem Gastroesophageal reflux disease without esophagitis (130200034) Gastroesophageal reflux disease without esophagitis (K21.9) Active confirmed Problem Hyperlipidemia (64591341) Hyperlipidemia, unspecified hyperlipidemia (E78.5) Active confirmed Problem Obesity (858679332) Non morbid o besity due to excess calories (E66.09) Active confirmed Problem Atherosclerotic hear t disease of yocha dehe coronary artery without angina pectoris (071106136534673) Coronary artery disease involving yocha dehe coronary artery of yocha dehe heart without angina pectoris (I25.10) Active confirmed Problem Tobacco user (818753102) Cigarette nicotine dependence without complication (F17.210) Active confirmed Problem Type II diabetes mellitus without complication (367485527) Type 2 diabetes mellitus without complication, without long-term current use of insulin (E11.9) Active confirmed Problem Obese class I (finding) (986458637666917) Obesity (BMI 30.0-34.9) (E66.9) Active confirmed Problem Abdominal aortic aneurysm without rupture (disorder) (02131347) Abdominal aortic aneurysm (AAA) without rupture (I71.4) Active confirmed Problem History of appendectomy (568506488) S/P appendectomy (Z90.49) Active confirmed Vital Signs Heart Rate 105 /min 03/04/2025 Blood pressure diastolic 80 mm Hg 03/04/2025 Height 67.50 in 03/04/2025 Blood pressure systolic 132 mm Hg 03/04/2025 Weight 216 lbs 03/04/2025 BMI 33.33 kg/m2 03/04/2025 Encounters Encounter Location Date Provider Diagnosis [facility] [address] [facility] [address] [place], [place] [id number] 09/03/2024 Fabrice Riley Type 2 diabetes paolo itus without complication, without long-term current use of insulin E11.9 ; Essential hypertension I10 ; Low TSH level R79.89 ; Gastroesophageal reflux disease without esophagitis K21.9 ; Coronary artery disease involving yocha dehe coronary artery of yocha dehe heart without angina pectoris I25.10 and Encounter for immunization Z23 [facility] [address] [place], [place] [id number] 11/09/2024 Fabrice Riley Acute URI J06.9 [facility] [address] [facility] [address] [place], [place] [id number] 03/04/2025 Fabrice Riley Type 2 diabetes paolo itus without complication, without long-term current use of insulin E11.9 ; Essential hypertension I10 ; Coronary artery disease involving yocha dehe coronary artery of yocha dehe heart without angina pectoris I25.10 ; Mixed hyperlipidemia E78.2 ; Gastroesophageal reflux disease without esophagitis K21.9 ; Non morbid obesity due to excess calories E66.09 ; 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, 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 and BMI 33.0-33.9,adult Z68.33 [facility] [address] [place], [place] [id number] 08/09/2024 Fabrice Riley [facility] [address] [place], [place] [id number] 09/20/2024 Fabrice Riley [facility] [address] [place], [place] [id number] 09/30/2024 Fabrice Riley [facility] [address] [place], [place] [id number] 11/26/2024 Fabrice Riley Type 2 diabetes paolo itus without complication, without long-term current use of insulin E11.9 [facility] [address] [place], [place] [id number] 12/27/2024 Fabrice Riley Type 2 diabetes paolo itus without complication, without long-term current use of insulin E11.9 [facility] [address] [place], [place] [id number] 03/08/2025 Fabrice Riley [facility] [address] [place], [place] [id number] 03/22/2025 Fabrice Riley [facility] [address] [place], [place] [id number] 05/04/2025 Fabrice Riley Assessments Encounter Date Diagnosis (ICD Code) Assessment Notes Treatment Notes Treatment Clinical Notes Section Notes 09/03/2024 Essential hypertension (ICD-10 - I10) 11/09/2024 Acute URI (ICD-10 - J06.9) 11/26/2024 Type 2 diabetes mellitus without complication, without long-term current use of insulin (ICD-10 - E11.9) 12/27/2024 Type 2 diabetes mellitus without complication, without long-term current use of insulin (ICD-10 - E11.9) 03/04/2025 Essential hypertension (ICD-10 - I10) 09/03/2024 Type 2 diabetes mellitus without complication, without long-term current use of insulin (ICD-10 - E11.9) 03/04/2025 Type 2 diabetes mellitus without complication, without long-term current use of insulin (ICD-10 - E11.9) 03/04/2025 Coronary artery disease involving yocha dehe coronary artery of yocha dehe heart without angina pectoris (ICD-10 - I25.10) 09/03/2024 Low TSH level (ICD-10 - R79.89) Labs from cardiology reviewed in office today, see report 09/03/2024 Gastroesophageal reflux disease without esophagitis (ICD-10 - K21.9) 03/04/2025 Mixed hyperlipidemia (ICD-10 - E78.2) 03/04/2025 Gastroesophageal reflux disease without esophagitis (ICD-10 - K21.9) 09/03/2024 Coronary artery disease involving yocha dehe coronary artery of yocha dehe heart without angina pectoris (ICD-10 - I25.10) 09/03/2024 Encounter for immunization (ICD-10 - Z23) 03/04/2025 Non morbid obesity due to excess calories (ICD-10 - E66.09) 03/04/2025 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, unspecified extremity (ICD-10 - I70.329) 03/04/2025 BMI 33.0-33.9,adult (ICD-10 - Z68.33) Plan Of Treatment Pending Test Test Name Order Date LC-Hepatic Function Panel (7) 10/01/2021 Next Appt Details Provider Name:Fabrice Myrick ry, 08/31/2025 02:30:00 PM, [address] [facility], [address], [place], [place], [id number], Insurance Providers Payer Name Payer Address Payer Phone Subscriber Number Group Number Insured Name Patient Relationship to Insured Coverage Start Date Coverage End Date MEDICARE PART B [address] [address] [place] [id number] Earline Hayward Self - patient is the insured [employer] [address] [address] [place] [address] [phone] [id number] Earline Hayward Self - patient is the insured Medical (General) History Medical History History ICD Code Coronary Artery Disease, s/p [place] x2 (2007 ) with stenting x 3 vessels Type 2 Diabetes Hypertension Hyperlipidemia IBS with Diarrhea Esophageal Reflux Urinary Incontinence 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 40 Year Smoking Hx Abdominal Aortic Aneursym, s/p repair Colon polyps Surgical History Surgery Date(Month/Year) Total Hysterectomy 1996 RT Ulnar Shortening 1999 Cholecystectomy 2000 Percutaneous Coronary Intervention X2 & 09/2008 Bilateral Cataract w/ implants 11/2009 Heart Cath 03/2011 Bone Graft - Tooth Pulled for Implant RT Eye YAG 02/2018 RT Hip Injection Surgery to follow Breast Biopsy RT [facility], [facility] Biopsy 01/2021 Appendectomy - 04/09/21 colonoscopy 2019 AAA repair - Endoprosthesis 2023 Hospitalization History Reason Date(Month/Year) LT Shoulder Pain- [facility] 05/25/2017 Palpatations, High BP- [facility] 06/2016 Chest Pain- [facility] 04/04- Colitis 03/2008
--- OUTSIDE RECORDS SUMMARY | 2025-05-13 09:53 | XMS_ITS | Clinical Summary ---
Author Organization [facility] Address [address] [place] [address] Care Team Providers Care Data Entry Supervisor Name Role Phone Fabrice Anthony MD Primary Care Provider + [phone] Allergies Active Allergy Reactions Criticality Noted Date Comments Penicillins Hives,Unknown - Gena ent states they do not know rxn details Medium 03/10/2019 Sulfacetamide Hives,Unknown - Gena ent states they do not know rxn details Medium 03/10/2019 Medications acetaminophen (Tylenol Extra Strength) 500 MG tablet TAKE 2 TABLET Every 8 hours PRN pain 08/15/2020 Active Ascorbic Acid 500 MG pack 03/10/2019 Active Aspirin Buf,CaCarb-MgCa rb-MgO, 81 MG tablet 03/10/2019 Active carvedilol (Coreg) 25 MG tablet 03/10/2019 Active cholecalciferol (Vitamin D-3) 25 MCG (1000 UT) capsule 03/10/2019 Active estradiol (Vivelle-DOT) 0.025 MG/24HR 03/10/2019 Activ e lansoprazole (Prevacid) [address] capsule 03/10/2019 Activ e glycopyrrolate (Robinul) 2 MG tablet 03/10/2019 Active Liraglutide -Weight Management (Saxenda) 18 MG/3ML solution pen-injector 03/10/2019 Active lisinopril 5 MG tablet 03/10/2019 Active magnesium oxide (Mag-Ox) 250 MG tablet 03/10/2019 Active metFORMIN XR (Glucophage-XR) 500 MG 24 hr tablet 01/05/2019 Active omeprazole (PriLOSEC) [address] capsule TAKE 1 CAPSULE DAILY EVERY MORNING BEFORE BREAKFAST. 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 Right snapping hip 03/10/2019 Family History Medical History Relation Name Comments Arthritis Other 1 Diabetes Other 2 Hypertension Other 3 Other cancer Other 4 Heart Problem Other 5 Relation Name Status Comments Other 1 Other 2 Other 3 Other 4 Other 5 Social History Tobacco Use Types Packs/Day Years Used Date Smoking Tobacco: Former Smokeless Tobacco: Never Comments Unknown Sex and Gender Information Value Date Recorded Sex Assigned at Not on file Legal Sex Female 8:26 PM EDT Gender Identity Not on file Sexual Orientation Choose not to disclose 2021 2:41 PM EST Last Filed Vital Signs Vital Sign Reading Time Taken Comments Blood Pressure 107/74 06/18/2022 12:58 PM EDT Pulse 68 04/16/2022 1:19 PM EDT Temperature 36.3 C (97.3 F) 06/01/2020 9:03 AM EDT Respiratory Rate 16 06/01/2020 9:03 AM EDT Oxygen Saturation 100% 04/16/2022 1:19 PM EDT Inhaled Oxygen Concentration - - Weight 97.5 kg (215 lb) 06/18/2022 12:58 PM EDT Height 172.7 cm (5' 8 ) 06/18/2022 12:58 PM EDT Body Mass Index 32.69 06/18/2022 12:58 PM EDT Plan of Treatment Health Maintenance Due Date Last Done Comments [facility]-Bone Density Scan 1959 [facility]-Depression Screening 1959 [facility]-Hepatitis C Screening 1959 [facility]-/Child/Adol SDOH Screenings 1959 [facility]-Obesity Intervention 1965 [facility]- SDOH Screenings 1977 [facility]-Adult SDOH Screenings 1977 [facility]-DTaP,Tdap,and Td Vaccines (1 - Tdap) 1978 CT Colonography 2004 Colonoscopy 2004 FIT-DNA 2004 FIT 2004 FOBT 2004 Sigmoidoscopy 2004 [facility]-Colorectal Cancer Screening 2004 [facility]-Pneumococcal Vaccine: 50+ Years (1 of 1 - PCV) 2009 [facility]-Zoster Vaccines (1 of 2) 2009 [facility]-RSV Vaccine: 60+ Years or (1 - Risk 60-74 years 1-dose series) 2019 [facility]-Breast Cancer Screening 04/22/2024 06/0 04/2022, 04/22/2022, 01/16/2021, Additional history exists [facility]-NBPTS-21 Vaccine ( season) 2024 06/07/2021, 05/08/2021, 04/17/2021 [facility]-Influenza Vaccine (Season Ended) 2025 09/01/2020, 10/01/2019, 08/28/2018, Additional history exists HPV Vaccines Aged Out No longer eligi ble based on patient's age to complete this topic [facility]-HIB Vaccines Aged Out No longer e ligible based on patient's age to complete this topic [facility]-Hepatitis A Vaccines Aged Out No longer eligible based on patient's age to complete this topic [facility]-IPV Vaccines Aged Out No longer e ligible based on patient's age to complete this topic [facility]-Rotavirus Vaccines Aged Out No lo nger eligible based on patient's age to complete this topic Insurance [employer] Care Teams Data Entry Supervisor Relationship Specialty Start Date End Date Fabrice Anthony MD [facility] [place] [address] PCP - General 03/30/21
--- OUTSIDE RECORDS SUMMARY | 2025-05-13 09:54 | XMS_ITS | Referral Summary ---
Author Organization [employer] Address [address] [place] [address] Care Team Providers Care Time Study Technologist Name Role Phone Unavailable Primary Care Provider Unavailabl e Allergies Active Allergy Reactions Criticality Noted Date Comments Penicillins Hives,Itching High 07/23/2016 Sulfa (Sulfonamide Antibiotics) Itching 04/2016 Medications rosuvastatin (CRESTOR) 40 MG tablet Take 1 tablet (40 mg total) by mouth nightly. 11/04/2023 Active PARoxetine (PAXIL) 10 MG tablet Take 1 tablet (10 mg total) by mouth daily. 10/20/2023 Active omega-3 fatty acids-fish oil (Fish OiL) 340-1,000 mg Cap per capsule Take 1 capsule (1 g total) by mouth daily. Active metFORMIN (GLUCOPHAGE-XR) 500 MG 24 hr tablet Take 1 tablet (500 mg total) by mouth daily. 10/20/2023 Active magnesium 250 mg Tab tablet Take 1 tablet (250 mg total) by mouth daily. Active lisinopriL (PRINIVIL,ZESTR IL) 10 MG tablet Take 1 tablet (10 mg total) by mouth daily. 11/04/2023 Active lansoprazole (PREVACID) 15 MG capsule Take 1 capsule (15 mg total) by mouth daily. Active colesevelam (WELCHOL) 625 mg tablet Take 1 tablet (625 mg total) by mouth 2 (two) times daily. 11/21/2023 Active cholecalciferol (Vitamin D3) 25 mcg (1,000 unit) tablet Take 1 tablet (1,000 Units total) by mouth daily. Active carvediloL (COREG) 25 MG tablet Take 1 tablet (25 mg total) by mouth 2 (two) times daily. 11/25/2023 Active aspirin 81 MG EC tablet Take 1 tablet (81 mg total) by mouth daily. Active ferrous fumarate/vit Bcomp,C (SUPER B COMPLEX ORAL) Take 1 capsule by mouth daily. Active multivitamin per tablet Take 1 tablet by mouth daily. Active cinnamon bark 500 mg capsule Take 1 capsule by mouth daily. Active APPLE CIDER VINEGAR ORAL Take 1 tablet by mouth Daily (1800). Active ascorbic acid, vitamin C, (VITAMIN C) 500 MG tablet Take 1 tablet (500 mg total) by mouth daily. Active rivaroxaban (Xarelto) 2.5 mg tablet Take 1 tablet (2.5 mg total) by mouth 2 (two) times daily. Active Active Problems Problem Noted Date Diagnosed Date Abdominal aortic aneurysm (AAA) without rupture 12/25/2023 CAD (coronary artery disease) 12/22/2023 Diabetes mellitus 12/22/2023 12/22/2023 History of [place] (myocardial infarction) 12/22/2023 12/22/2023 Hyperlipidemia 12/22/2023 12/22/2023 Hypertension 12/22/2023 12/22/2023 OAB (overactive bladder) 12/22/2023 024 AAA (abdominal aortic aneurysm) 12/22/2023 PVD (peripheral vascular disease) 12/22/2023 Irritable bowel syndrome with diarrhea 6 12/22/2023 Social History Tobacco Use Types Packs/Day Years Used Date Smoking Tobacco: Former Cigarettes Smokeless Tobacco: Current Tobacco Cessation:Counseling Given: Not Answered Comments:Quit smoking approx. 20 years ago.; vapes daily Alcohol Use Standard Drinks/Week Comments Yes 1 (1 standard drink = 0.6 oz pur e alcohol) very little Humiliation, Afraid, Rape, and Kick questionnair e Answer Date Recorded Within the last year, have y ou been afraid of your partner or ex-partner? No 12/22/2023 Within the last year, have y ou been humiliated or emotionally abused in other ways by your partner or ex-partner? No Within the last year, have y ou been kicked, hit, slapped, or otherwise physically hurt by your partner or ex-partner? No 12/22/2023 Within the last year, have y ou been raped or forced to have any kind of sexual activity by your partner or ex-partner? No 12/22/2023 AUDIT-C Answer Date Recorded Q1: How often do you have a drink containing alc ohol? Monthly or less 12/22/2023 Q2: How many drinks containi ng alcohol do you have on a typical day when you are drinking? 1 or 2 12/22/2023 Frequency of Binge Drinking Not on file 03/2024 PHQ-2 Answer Date Recorded Patient Health Questionnaire-2 Score 0 12/22/2023 [facility] Intimate Partner Violence Answer Da te Recorded Within the last year, have y ou been afraid of your partner or ex-partner? No 12/22/2023 Within the last year, have y ou been humiliated or emotionally abused in other ways by your partner or ex-partner? No Within the last year, have y ou been kicked, hit, slapped, or otherwise physically hurt by your partner or ex-partner? No 12/22/2023 Within the last year, have y ou been raped or forced to have any kind of sexual activity by your partner or ex-partner? No 12/22/2023 Interpersonal Safety Answer Date Record ed Family or friends hurt you Not on file 12/09 Family or friends insult you Not on file Family or friends threaten you Not on file 0 12/09/2023 Family or friends scream or curse at you Not on file 12/09/2023 Housing Stability Answer Date Recorded Living situation today Not on file Living situation problems Not on file 2023 Food Insecurity Answer Date Recorded Food run out past 12 months Not on file 11/18 Food did not last past 12 months Not on file 12/09/2023 Employment Answer Date Recorded Help finding and keeping a job Not on file 0 12/09/2023 Family and Community Support Answer Carlos e Recorded Help with Day to Day Activities Not on file 12/09/2023 Feeling Lonely or Isolated Not on file 12/09 Educational Attainment Answer Date Raymond rded Speak language other than Icelandic at home Not on file 12/09/2023 Want help with school or training Not on file 12/09/2023 Depression Answer Date Recorded PHQ-2 Risk Not on file 12/09/2023 Disabilities Answer Date Recorded Difficulty concentrating Not on file 024 Difficulty doing errands alone Not on file 0 12/09/2023 Substance Use Answer Date Recorded Used prescription meds for non-medical reasons N ot on file 12/09/2023 Used illegal drugs past 12 months Not on file 12/09/2023 Comments Unknown Sex and Gender Information Value Date Recorded Sex Assigned at Not on file Legal Sex Female 6:14 PM CDT Gender Identity Not on file Sexual Orientation Not on file Last Filed Vital Signs Vital Sign Reading Time Taken Comments Blood Pressure 133/68 12/26/2023 8:37 AM EST Pulse 71 12/26/2023 11:47 AM EST Temperature 36.7 C (98.1 F) 12/26/2023 8:00 AM EST Respiratory Rate 43 12/26/2023 10:00 AM EST Oxygen Saturation 93% 12/26/2023 11:47 AM EST Inhaled Oxygen Concentration - - Weight 98.9 kg (218 lb) 12/22/2023 2:30 PM EST Height 170.2 cm (5' 7 ) 12/22/2023 2:30 PM EST Body Mass Index 34.14 12/22/2023 2:30 PM EST Plan of Treatment Not on file Medical Devices Implanted Type Area Cattle Dealer Device Identifier Shelf Expiration Date Model / Serial / Lot Grft Excluder Aaa 36x14.5x18 [id number] - [id number] Implanted:Qty : 1 on 12/25/2023 by Lyndon Lam MD at [facility] IMPLANTS N/A: Aorta [employer]:MED PRDT 07/07/2026 [id number] / [id number] / Grft Excluder 14.5x14mm [id number] - [id number] Implanted:Qty : 1 on 12/25/2023 by Lyndon Lam MD at [facility] IMPLANTS Left: Iliac [employer]:MED PRDT 08/19/2026 [id number] / [id number] / Description:LEFT ILIAC Grft Excluder 14.5x12 Mm [id number] - [id number] Implanted:Qty : 1 on 12/25/2023 by Lyndon Lam MD at [facility] IMPLANTS Right: Iliac [employer]:MED PRDT 06/21/2026 [id number] / [id number] / Description:RIGHT ILIAC Grft Bndl 3 Confor [id number] - [id number] Implanted:Qty : 1 on 12/25/2023 by Lyndon Lam MD at [facility] IMPLANTS N/A: Aorta [employer]:MED PRDT [id number] / [id number] / Closure Sys Perclose Progl 6fr [id number] - [id number] Implanted:Qty : 4 on 12/25/2023 by Lyndon Lam MD at [facility] N/A: Arterial [facility]:VASC DEV 08/16/2025 [id number] / / [id number] Description:BILATERAL FEMORA L Insurance [place]IC[place] [address] [place] [address] CROSS/BLUE SHIELD Advance Directives For more information, please contact: [phone] * Full Code (Latest Code Status on File) Date Activated Date Inactivated Comments 12/25/2023 5:23 PM 12/26/2023 1:50 PM * Full Code Date Activated Date Inactivated Comments 12/25/2023 6:56 AM 12/25/2023 5:23 PM
--- NOTE | 2025-05-13 10:00 | US_ITS ---
FINAL REPORT CLINICAL HISTORY: .rt thyroid noduole-- bassem neff-- FINDINGS: Ultrasound guided thyroid biopsy. HISTORY: Thyroid mass. PROCEDURE: After informed consent was obtained and a time-out was performed, the patient was prepped and draped in usual sterile fashion over the anterior neck. Utilizing local anesthesia and sterile technique with a 25-gauge needle, access to the lesion was obtained. Four passes were made. The patient received no conscious sedation. The patient tolerated procedure well and left the department in good condition. IMPRESSION: Status post ultrasound guided biopsy of a thyroid nodule without immediate complication. Reviewed, Interpreted and Dictated by Malissa Pride MD Transcribed by ELEUTERIO Laguerre Authenticated and [facility]
== END 2025-05-13 23:59 | disposition home or self-care (01) ==
LOC: RAD 09:48
PROVIDERS: PCP Family Medicine; Visit Provider Nurse Practitioner
DX: E04.1 Nontoxic single thyroid nodule (principal)
CPT/HCPCS: 10005; 88173

== ENCOUNTER 2025-07-21 13:04 | Outpatient (CLI) | payer MEDICARE, OTHER, SELFPAY ==
--- OUTSIDE RECORDS SUMMARY | 2024-03-03 09:30 | XMS_ITS ---
[facility] Address [address] 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 Name Role Phone Fabrice Anthony Primary Care Provider Allergies Allergen (clinical drug ingredient) Drug/Non Drug Allergy documented on EMR Reaction Allergy Type Onset Date Status Penicillin Unknown Drug Allergy Active Substance with sulfonamide structure and antibacterial mechanism of action (substance) Sulfa Antibiotics Unknown Drug Allergy Active Results Component Value Reference Range Notes Glucose (In-House) Reviewed date:03/08/2024 01:39:49 PM Interpretation:185 Performing Lab: Notes/Report: 185 blood glucose 185 74 - 106 mg/dL Glycohemoglobin A1c (in hous e) Reviewed date:03/08/2024 01:39:49 PM Interpretation:8.0 Performing Lab: Notes/Report: 8.0 glycohemoglobin 8.0% 5 - 6.5 % P-Microalbumin/Creatinine, R andom Urine Sample Reviewed date:03/08/2024 01:39:49 PM Interpretation:Normal Performing Lab: Notes/Report: Test performed by [facility] , [address], [place] [address] Keaton Calixto MD, Halfway House Counselor CLIA: [id number] Albumin/Creatinine Ratio, Urine 11 0-30 ug/m g Microalbumin, Urine, Random 0.7 Creatinine, Urine 64.1 REASON FOR VISIT 4 mos checkup Medications Medication SIG (Take, Route, Frequency, Duration) Notes Start Date End Date Status valACYclovir HCl 1 GM 1 tablet Orally Th ree times a day; Duration: 7 days 01/07/2024 Active Xarelto 2.5 MG 1 tablet Orally Two times a day; Duration: 90 days Active Colesevelam HCl 625 MG TAKE 2 TABLET ONC E DAILY; Duration: 90 days Active Terbinafine HCl 250 MG 1 tablet Orally O nce a day 01/07/2024 Active BD Pen Needle Micro U/F 32G X 6 MM USE 1 NEEDLE ONCE DAILY Acti ve Rosuvastatin Calcium 40 MG 1 tab(s) Oral ly once a day Active Tylenol Extra Strength 500 MG 2 tab(s) orally 4 times daily Active Cinnamon 500 MG 2 cap(s) orally 2 ti mes a day; Duration: 30 day(s) Active Aspirin 81 MG 1 tab(s) orally twic e daily Active Loratadine 10 MG 1 tab(s) orally once a day Active metFORMIN HCl ER 500 mg TAKE 1 TABLET DAILY Active Carvedilol 25 MG 1 tablet with food O rally Twice a day Active Vitamin D3 25 MCG (1000 UT) 1 cap(s) ora lly once a day Active Vitamin B-12 1000 MCG 1 tab(s) orally on ce a day Active Lisinopril 10 MG 1 tab(s) orally once a day Active Vitamin C 500 MG 1 tab(s) orally once a day Active Fish Oil 1000MG 1 CAP(S) P.O. ONCE A DAY Active Magnesium 400MG 1 TAB(S) ONCE A DAY Active PARoxetine HCl 10 MG 1 tab(s) orally onc e a day; Duration: 30 day(s) Active Prevacid 24HR 15 MG 1 cap(s) orally once a day Active Vital Signs Weight 216.4 lbs 03/03/2024 Blood pressure systolic 130 mm Hg 03/03/20 24 Blood pressure diastolic 82 mm Hg 024 Heart Rate 80 /min 03/03/2024 Height 67.50 in 03/03/2024 BMI 33.39 kg/m2 03/03/2024 Encounters Encounter Location Date Provider Diagnosis [facility] [address] [facility] [address] [place] [id number] 03/03/2024 [place] Type 2 diabetes paolo itus without complication, without long-term current use of insulin E11.9 ; Essential hypertension I10 ; Hyperlipidemia, unspecified hyperlipidemia E78.5 and Obesity (BMI 30.0-34.9) E66.9 Assessments Encounter Date Diagnosis (ICD Code) Assessment Notes Treatment Notes Treatment Clinical Notes Section Notes 03/03/2024 Type 2 diabetes mellitus without complication, without long-term current use of insulin (ICD-10 - E11.9) 03/03/2024 Essential hypertension (ICD-10 - I10) 03/03/2024 Hyperlipidemia, unspecified hyperlipidemia (ICD-10 - E78.5) Not at goal. Cardiology is planning on starting patient on Leqvio 03/03/2024 Obesity (BMI 30.0-34.9) (ICD-10 - E66.9) diet & exercise reviewed with patient Plan Of Treatment Medication Medication Name Sig Start Date Stop Date Notes Colesevelam HCl 625 MG TAKE 2 TABLET ONC E DAILY; Duration: 90 days Rosuvastatin Calcium 40 MG 1 tab(s) Orally once a day metFORMIN HCl ER 500 mg TAKE 1 TABLET DAILY Carvedilol 25 MG 1 tablet with food O rally Twice a day Lisinopril 10 MG 1 tab(s) orally once a day Treatment Notes Assessment Notes Hyperlipidemia, unspecified hyperlipidem ia Not at goal. Cardiology is planning on starting patient on Leqvio Obesity (BMI 30.0-34.9) diet & exercise reviewed with patient Next Appt Details Follow Up: 6 Months, Reason: Provider Name:Fabrice melendrez, 08/31/2025 02:30:00 PM, [address] [place] [address], [facility] [address], [place], [place], [phone], Provider Name:Fabrice melendrez, 09/14/2025 01:30:00 PM, [address] [place] [address], [facility] [address], [place], [place], [phone], Progress Notes * Kiah OLVERAOB :1960 (64 yo F)Acc No.[id number]:03/03/2024 Progress Notes Patient: Virginia Earline DESAI Provider: Tree Anthony M.D. :1960 A ge:63 Y S ex:Female Date:03/03/2024 Address:[address] [place] [address], [id number] Subjective: * Chief Complaints: * 1 . 4 mos checkup. * HPI: E ndocrinology: 63 year old female presents with c/o Recent Blood Sugars P t here for f/u on DM 2. C ardiology: c/o Blood Pressure Elevated P t here for f/u on hypertension, states she is doing well and does not have any concerns. * ROS: D ERMATOLOGY: no R leno. n o H vianey. G ASTROENTEROLOGY: no N ausea. n o V omiting. U ROLOGY: no D ifficulty urinating. n o B lood in urine. 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 * Surgical History: T otal Hysterectomy 1996, RT Ulnar Shortening 1999, Cholecystectomy 2000, Percutaneous Coronary Intervention X2 07/2008 & 09/2008, Bilateral Cataract w/ implants 11/2009, Heart Cath 03/2011, Bone Graft - Tooth Pulled for Implant 01/2018, RT Eye YAG 02/2018, RT Hip Injection Surgery to follow , Breast Biopsy , RT Hip Labral Repair, Psoas Tendon Lengthening- [facility] 08/2020, Breast Biopsy 01/2021, Appendectomy - 04/09/21, colonoscopy 2018. * Hospitalization/Major Diagno stic Procedure: C olitis 03/2008, Chest Pain- [place] 04/04-, Palpatations, High BP- [facility] ER 06/2016, LT Shoulder Pain- [facility] ER 05/25/2017. * Family History: F ather: , Cancer-melanoma. M other: alive, hyperlipidemia, hypertension. 1 brother(s) - healthy. 1 son(s) , 1 daughter(s) - healthy. . * Social History: C URRENT TOBACCO USE S moking Status: Patient does smoke, packs per day: 1. E xercise: no. Marital Status: . Past smoking status: yes, PPD: 1/2 , years: 25 years taking Chantix. Recreational drug use: no. Alcohol: No. * Medications: T aking Prevacid 24HR 15 MG Capsule Delayed Release 1 cap(s) orally once a day , Taking PARoxetine HCl 10 MG Tablet 1 tab(s) orally once a day , Taking Magnesium 400MG 1 TAB(S) ONCE A DAY , Taking Fish Oil 1000MG 1 CAP(S) P.O. ONCE A DAY , Taking Vitamin C 500 MG Tablet 1 tab(s) orally once a day , Taking Vitamin D3 25 MCG (1000 UT) Capsule 1 cap(s) orally once a day , Taking Vitamin B-12 1000 MCG Tablet 1 tab(s) orally once a day , Taking Aspirin 81 MG Tablet Delayed Release 1 tab(s) orally twice daily , Taking Cinnamon 500 MG Capsule 2 cap(s) orally 2 times a day , Taking Tylenol Extra Strength 500 MG Tablet 2 tab(s) orally 4 times daily , Taking Loratadine 10 MG Tablet 1 tab(s) orally once a day , Taking BD Pen Needle Micro U/F 32G X 6 MM Miscellaneous USE 1 NEEDLE ONCE DAILY , Taking Lisinopril 10 MG Tablet 1 tab(s) orally once a day , Taking Rosuvastatin Calcium 40 MG Tablet 1 tab(s) Orally once a day , Taking Colesevelam HCl 625 MG Tablet TAKE 2 TABLET ONCE DAILY , Taking Xarelto 2.5 MG Tablet 1 tablet Orally Two times a day , Taking valACYclovir HCl 1 GM Tablet 1 tablet Orally Three times a day , Taking Terbinafine HCl 250 MG Tablet 1 tablet Orally Once a day , Taking metFORMIN HCl ER 500 mg Tablet Extended Release 24 Hour TAKE 1 TABLET DAILY , Taking Carvedilol 25 MG Tablet 1 tablet with food Orally Twice a day , Medication List reviewed and reconciled with the patient * Allergies: P enicillin, Sulfa Antibiotics. Objective: * Vitals: W t:216.4, Temp:98.3, BP:130/82, HR:80, Nurse:edith, Ht: 67.50, BMI:33.39. * Examination: E ndocrinology: General Appearance: N AD, BMI 33.39. H EENT: u nremarkable. T hyroid exam: n o enlargement. H eart: R SR. L ungs: c lear to auscultation. E xtremities: n o leg edema. S kin: n ormal, no rash. ? Assessment: * Assessment: 1. T ype 2 diabetes mellitus without complication, without long-term current use of insulin - E11.9 (Primary) 2 . E ssential hypertension - I10 3 . H yperlipidemia, unspecified hyperlipidemia - E78.5 4 . O besity (BMI 30.0-34.9) - E66.9 Plan: * Treatment: Value Reference Range A lbumin/Creatinine Ratio, Urine 11 0-30 - ug /mg * C reatinine, Urine 64.1 - mg/dL * M icroalbumin, Urine, Random 0.7 - mg/dL * Ashlyn Hurley 03/08/2024 1:39: 41 PM >See phone encounter ?LAB: Glucose (In-House) (Collection Date & Time - 03/03/2024)?185* Value Reference Range b lood glucose 185 74 - 106 mg/dL * Anali Gomez 03/03/2024 2:02:29 PM > Ashlyn Hurley 03/08/2024 1:39:41 PM >See phone encounter ?LAB: Glycohemoglobin A1c (in house) (Collection Date & Time - 03/03/2024)? 8.0* Value Reference Range g lycohemoglobin 8.0% 5 - 6.5 % * Anali Gomez 03/03/2024 2:15:35 PM > Ashlyn Hurley 03/08/2024 1:39:41 PM >See phone encounter 2.?Essential hypertension? Continue Lisinopril Tablet, 10 MG, 1 tab(s), orally, once a day;?Continue Carvedilol Tablet, 25 MG, 1 tablet with food, Orally, Twice a day.?? 3.?Hyperlipidemia, unspecified hyperlipidemia? Refill Colesevelam HCl Tablet, 625 MG, TAKE 2 TABLET ONCE DAILY, 90 days, 180, Refills 1;?Continue Rosuvastatin Calcium Tablet, 40 MG, 1 tab(s), Orally, once a day.?? Notes: Not at goal. Cardiology is planning on starting patient on Leqvio?? 4.?Obesity (BMI 30.0-34.9)? Notes: diet & exercise reviewed with patient?? * Procedure Codes: 8 2950 GLUCOSE TEST, 90011 CAPILLARY BLOOD DRAW, 80718 GLYCATED HEMOGLOBIN TEST, Modifiers: QW * Follow Up: 6 Months * Images: Billing Information: * Visit Code: 42275 Office Visit, Est Pt., Level 4. * Procedure Codes: 68519 GLUCOSE TEST. 96182 CAPILLARY BLOOD DRAW. 37183 GLYCATED HEMOGLOBIN TEST. Modifiers: QW * Electronic signature of Kelsea Anthony MD on 07/21/2025 at 01:13 PM EDT Sign off status: Pending * Provider: Tree Anthony M.D. Date: 0 03/03/2024 Generated for Ted lopez/Juanita/Peeitting on: 0 07/21/2025 01:13 PM EDT History and Physical Notes * HPI (History of Present Illness) Category Sub-Category Detail Notes Category Not es Endocrinology Recent Blood Sugars Pt here for f/u on D M 2 Cardiology Blood Pressure Elevated Pt here for f/u on hypertension, states she is doing well and does not have any concerns Examination Category Sub-Category Detail Notes Category Not es Endocrinology HEENT: unremarkable Heart: RSR Lungs: clear to auscultatio n Extremities: no leg edema General Appearance: NAD, BMI 33.39 Skin: normal, no rash Thyroid exam: no enlargement
--- OUTSIDE RECORDS SUMMARY | 2024-09-03 10:15 | XMS_ITS ---
Author Organization [facility] Address [address] [place] [id number] Care Team Providers Care Mine Safety Director Name Role Phone Fabrice Anthony Primary Care [...] (6months&older) IM Intramuscular 09/03/2024 Administered Vital Signs Weight 214.2 lbs 09/03/2024 Blood pressure systolic 136 mm Hg 09/03/20 24 Blood pressure diastolic 74 mm Hg 024 Heart Rate 76 /min 09/03/2024 Height 67.50 in 09/03/2024 BMI 33.05 kg/m2 09/03/2024 Encounters Encounter Location Date Provider Diagnosis [facility] [address] [place], [place] [phone] 09/03/2024 Fabrice Anthony Type 2 diabetes paolo itus without complication, without long-term current use of insulin E11.9 ; Essential hypertension I10 ; Low TSH level R79.89 ; Gastroesophageal reflux disease without esophagitis K21.9 ; Coronary artery disease involving [place] coronary artery of [place] heart without angina pectoris I25.10 and Encounter [...] - K21.9) 09/03/2024 Coronary artery disease involving [place] coronary artery of [place] heart without angina pectoris (ICD-10 - I25.10) [...] test results, 6 Months, Reason: Provider Name:Fabrice melendrez, 08/31/2025 02:30:00 PM, [address] [place] [address], [address], [place], [place], [phone], Provider Name:Fabrice melendrez, 09/14/2025 01:30:00 PM, [address] [place] [address] [address] [facility], [address], [place], [place], [phone], Progress Notes * Kiah OLVERAOB :1960 (64 yo F)Acc No.[id number]:09/03/2024 Progress Notes Patient: Virginia Earline DESAI Provider: Tree Anthony M.D. 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 * Hospitalization/Major Diagno stic Procedure: C olitis 03/2008, Chest Pain- [place] 04/04-, Palpatations, High BP- [facility] 06/2016, LT Shoulder Pain- [facility] 05/25/2017. * Family History: F [...] 5 . C oronary artery disease involving [place] coronary artery of [place] heart without angina pectoris - I25.10 6 [...] orally, once a day.??5.?Coronary artery disease involving [place] coronary artery of [place] heart without angina pectoris? Continue Rosuvastatin Calcium [...] * Images: Billing Information: * Visit Code: 87289 Office Visit, Est Pt., Level 4. * Procedure Codes: G2211 Complex e/m visit add on. * Electronic signature of Kelsea Anthony MD on 07/21/2025 at 01:13 PM EDT Sign off status: Pending * Provider: Tree Anthony M.D. Date: 1 Generated for Silasi ng/Facarlosg/eTransmitting on: 0 07/21/2025 01:13 PM EDT History [...]
--- OUTSIDE RECORDS SUMMARY | 2024-11-09 06:30 | XMS_ITS ---
Author [facility] Address [address] [place] [id number] Care Team Providers Care Electronics Repair Technician Name Role Phone Fabrice Anthony Primary Care [...] TAB(S) ONCE A DAY Active Vital Signs Weight 215.6 lbs 11/09/2024 Blood pressure systolic 140 mm Hg 11/09/20 24 Blood pressure diastolic 80 mm Hg 024 Heart Rate 90 /min 11/09/2024 Height 67.50 in 11/09/2024 BMI 33.27 kg/m2 11/09/2024 Encounters Encounter Location Date Provider Diagnosis [facility] [address] [place], [place] [id number] 11/09/2024 Fabrice Anthony Acute URI J06.9 Assessments [...] Appt Details Follow Up: prn, Reason: Provider Name:Fabrice Myrick aneesh, 08/31/2025 02:30:00 PM, [address] [facility] [address], [address], [place], [phone], Provider Name:Fabrice Myrick aneesh, 09/14/2025 01:30:00 PM, [address] [facility] [address] [facility], [address], [place], [place], [phone], Progress Notes * Sharmin OLVERAineDOB :1960 (64 yo F)Acc No.[id number]:11/09/2024 Progress Notes Patient: Alexus CONCEPCIONine Provider: Tree Anthony M.D. :1960 A ge:64 Y S ex:Female Date:11/09/2024 Address:[address] [facility] [address], [place], [id number] Subjective: * Chief Complaints: * 1 . 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 * Hospitalization/Major Diagno stic Procedure: C olitis 03/2008, Chest Pain- [place] 04/04-, Palpatations, High BP- [facility] 06/2016, LT Shoulder Pain- [facility] 05/25/2017. * Family History: F [...] Temp:98.8, BP:140/80, HR:90, O2 Sat:92% on RA, Nurse:edith, Ht: 67.50, BMI:33.27. * Examination: E NT/Respiratory: [...] Value Reference Range r esults Neg * Anali Gomez 11/09/2024 10:34: 22 AM > , Provider reviewed results while patient in office. ?LAB: Covid test (in house) (Collection Date & Time - 11/09/2024)* Value Reference Range R esult: Neg * Anali Gomez 11/09/2024 10:34: 38 AM > , Provider reviewed results while patient in office. * Procedure Codes: G 2211 Complex e/[place], [address] [place], [address] Flu Test- Nasal Swab, Modifiers: QW , 39358 COVID TEST IN HOUSE, Modifiers: QW * Follow Up: p rn * Images: Billing Information: * Visit Code: 23006 Office Visit, Est Pt., Level 3. * Procedure Codes: G2211 Complex e/[place]. [address] [place] [address] Flu Test- Nasal Swab. Modifiers: QW 48778 COVID TEST IN HOUSE. Modifiers: QW * Electronic signature of Kelsea Anthony MD on 07/21/2025 at 01:13 PM EDT Sign off status: Pending * Provider: Tree Anthony M.D. Date: 1 01/10/2024 Generated for Printi ng/Facarlosg/eTransmitting on: 0 07/21/2025 01:13 PM EDT [...]
--- OUTSIDE RECORDS SUMMARY | 2025-03-04 10:30 | XMS_ITS ---
[facility] [address] [place] [id number] Care Team Providers Care Occ Ther Name Role Phone RajJamshidFabrice Primary Care Provider Allergies Allergen (clinical drug ingredient) Drug/Non Drug Allergy documented on EMR Reaction Allergy Type Onset Date Status Penicillin Unknown Drug Allergy Active Substance with sulfonamide structure and antibacterial mechanism of action (substance) Sulfa Antibiotics Unknown Drug Allergy Active Results Component Value Reference Range Notes P-Comprehensive Metabolic Pa amanda (CMP) Reviewed date:03/08/2025 05:04:53 PM Interpretation:K 5.4, Cl 96, Calc 10.5, Alk Phos 171, AST 58 Performing Lab: Notes/Report: Test performed by [facility] [address] [place] [address] , [address], [place] [address] Keaton Calixto MD, Core Microarchitect CLIA: [id number] Sodium 138 135-145 mmol/L Potassium 5.4 3.5-5.3 mmol/L Chloride 96 97-108 mmol/L CO2 23 22-32 mmol/L Glucose 248 65-99 mg/dL BUN 18 8-23 mg/dL Creatinine 0.67 0.50-1.00 mg/dL Calcium 10.5 8.6-10.4 mg/dL eGFR by Creatinine 97 >59 mL/min/1.73m2 Protein 7.7 6.0-8.3 g/dL Albumin 5.0 3.5-5.3 g/dL Alkaline Phosphatase 171 35-121 IU/L ALT (SGPT) 36 <5-47 IU/L AST (SGOT) 58 <5-40 IU/L Bilirubin, Total 0.5 <0.2-1.2 mg/dL A/G Ratio 1.9 1.1-2.5 P-Hemoglobin A1C Reviewed date:03/08/2025 05:04:54 PM Interpretation:9.5 Performing Lab: Notes/Report: Test performed by [facility] [address] [place], [place] [address] [address] Keaton Calixto MD, [employer] CLIA: [id number] Hemoglobin A1C 9.5 <5.7 % The following HbA1c ranges recommended by the [place] [employer] (ADA) may be used as an aid in the diagnosis of diabetes mellitus. HbA1c Suggested Diagnosis >=6.5% Diabetic 5.7% - 6.4% Pre-Diabetic <5.7% Non-Diabetic P-Lipid Panel Reviewed date:03/08/2025 05:04:54 PM Interpretation:trigs 466 Performing Lab: Notes/Report: Test performed by [facility] [address] [place] [address] [place] [address] Keaton Calixto MD, [employer] CLIA: [id number] Cholesterol 116 <200 mg/dL Triglycerides 466 <150 mg/dL HDL Cholesterol 48 >39 mg/dL Cholesterol / HDL Ratio 2.42 0.00-4.44 Ratio Non-HDL Cholesterol 68 <130 mg/dL LDL Cholesterol (Calculation) SEE COMMENT <130 mg/dL LDL Cholesterol Levels* Less than 100 mg/dL Optimal 100 to 129 mg/dL Near Optimal/ Above Optimal 130 to 159 mg/dL Borderline High 160 to 189 mg/dL High 190 mg/dL and above Very High * Categories as recommended by the 2004 ATPIII guidelines Unable to calculate due to Triglycerides >400 mg/dL LDL/HDL Ratio SEE COMMENT <3.3 Ratio Unable to calculate due to Triglycerides >400 mg/dL LDL Cholesterol Patient History Test Date: 10/30/2023 LDL Results: 118 Units: mg/dL % Change: - Test Date: 03/04/2025 LDL Results: SEE COMMENT Units: mg/dL % Change: - P-TSH reflex to FT4 Reviewed date:03/08/2025 05:04:54 PM Interpretation:Normal Performing Lab: Notes/Report: Test performed by [facility] [address] [place] [address] , [address], [place] [address] Keaton Calixto MD, [employer] CLIA: [id number] TSH reflex to FT4 2.50 0.43-5.25 mU/L P-Microalbumin/Creatinine, R andom Urine Sample Reviewed date:03/08/2025 05:04:54 PM Interpretation:a/c 63 Performing Lab: Notes/Report: Test performed by [facility] [address] [place] [address] , [address], [place] [address] Keaton Calixto MD, [employer] CLIA: [id number] Albumin/Creatinine Ratio, Urine 63 0-30 ug/mg Microalbumin, Urine, Random 7.4 Creatinine, Urine 117.9 Estimated Average Glucose Reviewed date:03/08/2025 05:04:54 PM Interpretation: Performing Lab: Notes/Report: Test performed by [facility] [address] [place] [address] , [address], [place] [address] Keaton Calixto MD, [employer] CLIA: [id number] Estimated Average Glucose (eAG) 226 Estimated Average Glucose (eAG) is calculated using the equation eAG = (28.7 x HbA1c) - 46.7 based on the guidelines established by the ADA. If the patient has certain diseases including kidney disease, sickle cell anemia, thalassemia, or is taking medications such as dapsone, erythropoietin, or iron, eAG should not be evaluated. REASON FOR VISIT 6 month f/u Medications Medication SIG (Take, Route, Frequency, Duration) Notes Start Date End Date Status valACYclovir HCl 1 GM 1 tablet Orally Th ree times a day; Duration: 7 days 01/07/2024 Active Colesevelam HCl 625 mg 2 tablets Orally Once a day; Duration: 90 days Active Aspirin 81 MG 1 tab(s) orally twic e daily Active BD Pen Needle Micro U/F 32G X 6 MM USE 1 NEEDLE ONCE DAILY Acti ve Tylenol Extra Strength 500 MG 2 tab(s) orally 4 times daily Active Loratadine 10 MG 1 tab(s) orally once a day Active Cinnamon 500 MG 2 cap(s) orally 2 ti mes a day; Duration: 30 day(s) Active Vitamin C 500 MG 1 tab(s) orally once a day Active Vitamin D3 25 MCG (1000 UT) 1 cap(s) orally once a day A ctive Vitamin B-12 1000 MCG 1 tab(s) orally once a day Active Magnesium 400MG 1 TAB(S) ONCE A DAY Active Fish Oil 1000MG 1 CAP(S) P.O. ONCE A DAY Active Wellbutrin XL 150 MG 1 tablet in the mor ruby Orally bid Active PARoxetine HCl 10 MG 1 tab(s) orally onc e a day; Duration: 30 day(s) Active Xarelto 2.5 MG 1 tablet Orally Two times a day Active Rosuvastatin Calcium 40 MG 1 tab(s) Orally once a day Active Prevacid 24HR 15 MG 1 cap(s) orally once a day Active metFORMIN HCl ER 500 mg 3 tablets Orally Once a day Active Leqvio 284 MG/1.5ML as directed Subcutan eous Every 6 Months Active Metoprolol Succinate ER 25 MG 1 tablet Orally Once a day A ctive Lisinopril 20 MG 1 tab(s) orally once a day Active Problems Problem Type SNOMED Code ICD Code Onset Dates Problem Status W/U Status Risk Notes Problem Obese class I ([id number]) BMI 33.0-33.9,a dult (Z68.33) Active confirmed Vital Signs Weight 216 lbs 03/04/2025 Blood pressure systolic 132 mm Hg 03/04/20 25 Blood pressure diastolic 80 mm Hg 025 Heart Rate 105 /min 03/04/2025 Height 67.50 in 03/04/2025 BMI 33.33 kg/m2 03/04/2025 Encounters Encounter Location Date Provider Diagnosis [facility] [address], [place] [id number] 03/04/2025 Fabrice Anthony Type 2 diabetes paolo itus without complication, without long-term current use of insulin E11.9 ; Essential hypertension I10 ; Coronary artery disease involving [place] coronary artery of 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 coronary artery of 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, unspecified extremity (ICD-10 - I70.329) 03/04/2025 BMI 33.0-33.9,adult (ICD-10 - Z68.33) Plan Of Treatment Medication Medication Name Sig Start Date Stop Date Notes Xarelto 2.5 MG 1 tablet Orally Two times a day Rosuvastatin Calcium 40 MG 1 tab(s) Orally once a day Prevacid 24HR 15 MG 1 cap(s) orally once a day metFORMIN HCl ER 500 mg 3 tablets Orally Once a day Leqvio 284 MG/1.5ML as directed Subcutan eous Every 6 Months Metoprolol Succinate ER 25 MG 1 tablet Orally Once a day Lisinopril 20 MG 1 tab(s) orally once a day Next Appt Details Follow Up: 6 Months, Reason: Provider Name:Fabrice Myrick aneesh, 08/31/2025 02:30:00 PM, [address] [place] [address], [address], [place], [place], [id number], Provider Name:Fabrice Myrick aneesh, 09/14/2025 01:30:00 PM, [address] [place] [address], [address], [place], [place], [id number], Progress Notes * MICHELEGOPALSOLANOKiahOB :1960 (64 yo F)Acc No.[id number]:03/04/2025 Progress Notes Patient: [place] DESAI Earline Provider: Tree Anthony M.D. :1960 A ge:64 Y S ex:Female Date:03/04/2025 Address:[address] [address] [address], [id number] Subjective: * Chief Complaints: * 1 . 6 month f/u. * HPI: C ardiology: 64 year old female presents with c/o Blood Pressure Elevated?Pt here to f/u on hypertension, states she is doing well and does not have any concerns. Pt states that she did have nuclear stress test done 03/02 and will see cardiology on 03/21. c/o Hyperlipidemia P t is fasting today. * ROS: D ERMATOLOGY: no R leno. n o H vianey. G ASTROENTEROLOGY: no N ausea. n o V omiting. U ROLOGY: no D ifficulty urinating. n o B lood in urine. 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 * Surgical History: T otal Hysterectomy 1996, RT Ulnar Shortening 1999, Cholecystectomy 2000, Percutaneous Coronary Intervention X2 07/2008 & 09/2008, Bilateral Cataract w/ implants 11/2009, Heart Cath 03/2011, Bone Graft - Tooth Pulled for Implant 01/2018, RT Eye YAG 02/2018, RT Hip Injection Surgery to follow , Breast Biopsy , RT Hip Labral Repair, Psoas Tendon Lengthening- [facility] 08/2020, Breast Biopsy 01/2021, Appendectomy - 04/09/21, colonoscopy 2018, AAA repair - Endoprosthesis 2023. * Hospitalization/Major Diagno stic Procedure: C olitis 03/2008, Chest Pain- [place] 04/04-, Palpatations, High BP- [facility] ER 06/2016, LT Shoulder Pain- [facility] ER 05/25/2017. * Family History: F ather: [...] no. Alcohol: No. * Medications: T aking Leqvio 284 MG/1.5ML Solution Prefilled Syringe as directed Subcutaneous Every 6 Months , Taking Metoprolol Succinate ER 25 MG Tablet Extended Release 24 Hour 1 tablet Orally Once a day , Taking Wellbutrin XL 150 MG Tablet Extended Release [...] Orally Three times a day , Taking Prevacid 24HR 15 MG Capsule Delayed Release 1 cap(s) orally once a day , Taking Colesevelam HCl 625 mg Tablet 2 tablets Orally Once a day , Taking Lisinopril 20 MG Tablet 1 tab(s) orally once a day , Taking Rosuvastatin Calcium 40 MG Tablet 1 tab(s) Orally once a day , Taking metFORMIN HCl ER 500 mg Tablet Extended Release 24 Hour 3 tablets Orally Once a day , Taking Xarelto 2.5 MG Tablet 1 tablet Orally Two times a day , Discontinued Terbinafine HCl 250 MG Tablet Take 1 tablet by mouth once daily , Discontinued dexAMETHasone 2 MG Tablet 1 tablet Orally every 12 hrs , Discontinued Promethazine-DM 6.25-15 MG/5ML Syrup 5 ml as needed Orally every 6 hrs , Discontinued Zithromax Z-David 250 MG Tablet as directed Orally once daily , Discontinued Carvedilol 25 MG Tablet 1 tablet with food Orally Twice a day , Medication List reviewed and reconciled with the patient * Allergies: P enicillin, Sulfa Antibiotics. Objective: * Vitals: W t: 216, Temp: 98.1, BP: 132/80, HR: 105, Nurse: edith, Ht: 67.50, BMI:33.33. * Examination: E ndocrinology: General Appearance: N AD, BMI 33.33. H EENT: u nremarkable. T hyroid exam: n o enlargement. H eart: R SR. L ungs: c lear to auscultation. E xtremities: n o leg edema. S kin: n ormal, no rash. ? Assessment: * Assessment: 1. T ype 2 diabetes mellitus without complication, without long-term current use of insulin - E11.9 (Primary) 2 . E ssential hypertension - I10 3 . C oronary artery disease involving [place] coronary artery of [place] heart without angina pectoris - I25.10? 4. M ixed hyperlipidemia - E78.2 5 . G astroesophageal reflux disease without esophagitis - K21.9 6 . N on morbid obesity due to excess calories - E66.09 7 . 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 B PR 33.0-33.9,adult - Z68.33 ? Plan: * Treatment: Value Reference Range A /G Ratio 1.9 1.1-2.5 - * A lbumin 5.0 3.5-5.3 - g/dL * A lkaline Phosphatase 171 H 35-121 - IU/L * A LT (SGPT) 36 <5-47 - IU/L * A ST (SGOT) 58 H <5-40 - IU/L * B ilirubin, Total 0.5 <0.2-1.2 - mg/dL * B UN 18 8-23 - mg/dL * C alcium 10.5 H 8.6-10.4 - mg/dL * C hloride 96 L 97-108 - mmol/L * C O2 23 22-32 - mmol/L * C reatinine 0.67 0.50-1.00 - mg/dL * G lucose 248 H 65-99 - mg/dL * P otassium 5.4 H 3.5-5.3 - mmol/L * S odium 138 135-145 - mmol/L * P rotein 7.7 6.0-8.3 - g/dL * e GFR by Creatinine 97 >59 - mL/min/1.73m2 * Cristine Rick 03/08/2025 05: 04:29 PM > See phone encounter ?LAB: P-Hemoglobin A1C (Collection Date & Time - 03/04/2025 01:58 PM)?9.5* Value Reference Range H emoglobin A1C 9.5 H <5.7 - % * Cristine Rick 03/08/2025 05: 04:29 PM > See phone encounter ?LAB: P-TSH reflex to FT4 (Collection Date & Time - 03/04/2025 01:58 PM)? Normal* Value Reference Range T SH reflex to FT4 2.50 0.43-5.25 - mU/L * Cristine Rick 03/08/2025 05: 04:29 PM > See phone encounter ?LAB: P-Microalbumin/Creatinine, Random Urine Sample (Collection Date & Time - 03/04/2025 01:58 PM)?a/c 63* Value Reference Range A lbumin/Creatinine Ratio, Urine 63 H 0-30 - ug /mg * C reatinine, Urine 117.9 - mg/dL * M icroalbumin, Urine, Random 7.4 - mg/dL * Cristine Rick 03/08/2025 05: 04:29 PM > See phone encounter 2.?Essential hypertension? Continue Metoprolol Succinate ER Tablet Extended Release 24 Hour, 25 MG, 1 tablet, Orally, Once a day;?Continue Lisinopril Tablet, 20 MG, 1 tab(s), orally, once a day.?LAB: P-Comprehensive Metabolic Panel (CMP) (Collection Date & Time - 03/04/2025 01:58 PM)?K 5.4, Cl 96, Calc 10.5, Alk Phos 171, AST 58* Value Reference Range A /G Ratio 1.9 1.1-2.5 - * A lbumin 5.0 3.5-5.3 - g/dL * A lkaline Phosphatase 171 H 35-121 - IU/L * A LT (SGPT) 36 <5-47 - IU/L * A ST (SGOT) 58 H <5-40 - IU/L * B ilirubin, Total 0.5 <0.2-1.2 - mg/dL * B UN 18 8-23 - mg/dL * C alcium 10.5 H 8.6-10.4 - mg/dL * C hloride 96 L 97-108 - mmol/L * C O2 23 22-32 - mmol/L * C reatinine 0.67 0.50-1.00 - mg/dL * G lucose 248 H 65-99 - mg/dL * P otassium 5.4 H 3.5-5.3 - mmol/L * S odium 138 135-145 - mmol/L * P rotein 7.7 6.0-8.3 - g/dL * e GFR by Creatinine 97 >59 - mL/min/1.73m2 * Cristine Rick 03/08/2025 05: 04:29 PM > See phone encounter 3.?Coronary artery disease involving [place] coronary artery of [place] heart without angina pectoris? Continue Xarelto Tablet, 2.5 MG, 1 tablet, Orally, Two times a day.??4.?Mixed hyperlipidemia? Continue Leqvio Solution Prefilled Syringe, 284 MG/1.5ML, as directed, Subcutaneous, Every 6 Months;?Continue Rosuvastatin Calcium Tablet, 40 MG, 1 tab(s), Orally, once a day.?LAB: P-Comprehensive Metabolic Panel (CMP) (Collection Date & Time - 03/04/2025 01:58 PM)?K 5.4, Cl 96, Calc 10.5, Alk Phos 171, AST 58* Value Reference Range A /G Ratio 1.9 1.1-2.5 - * A lbumin 5.0 3.5-5.3 - g/dL * A lkaline Phosphatase 171 H 35-121 - IU/L * A LT (SGPT) 36 <5-47 - IU/L * A ST (SGOT) 58 H <5-40 - IU/L * B ilirubin, Total 0.5 <0.2-1.2 - mg/dL * B UN 18 8-23 - mg/dL * C alcium 10.5 H 8.6-10.4 - mg/dL * C hloride 96 L 97-108 - mmol/L * C O2 23 22-32 - mmol/L * C reatinine 0.67 0.50-1.00 - mg/dL * G lucose 248 H 65-99 - mg/dL * P otassium 5.4 H 3.5-5.3 - mmol/L * S odium 138 135-145 - mmol/L * P rotein 7.7 6.0-8.3 - g/dL * e GFR by Creatinine 97 >59 - mL/min/1.73m2 * Cristine Rick 03/08/2025 05: 04:29 PM > See phone encounter ?LAB: P-Lipid Panel (Collection Date & Time - 03/04/2025 01:58 PM)?trigs 466 * Value Reference Range C holesterol / HDL Ratio 2.42 0.00-4.44 - Ratio * C holesterol 116 <200 - mg/dL * H DL Cholesterol 48 >39 - mg/dL * L DL Cholesterol (Calculation) SEE COMMENT <130 - mg/d L * L DL/HDL Ratio SEE COMMENT <3.3 - Ratio * N on-HDL Cholesterol 68 <130 - mg/dL * T riglycerides 466 H <150 - mg/dL * Cristine Rick 03/08/2025 05: 04:29 PM > See phone encounter 5.?Gastroesophageal reflux disease without esophagitis? Continue Prevacid 24HR Capsule Delayed Release, 15 MG, 1 cap(s), orally, once a day.?? * Labs: * L ab: Estimated Average Glucose (Collection Date & Time - 03/04/2025 01:58 PM) Value Reference Range E stimated Average Glucose 226 - mg/dL * [facility], IT support 03/05/2025 10:50:05 : This order was created by the Interface. Cristine Rick 03/08/2025 05:04:29 PM > See phone encounter * Procedure Codes: G 2211 Complex e/m visit add on, G8752 MOST RECENT SYSTOLIC BP < 140MM HG, G8754 MOST RECENT DIASTOLIC BP < 90MM HG, 3046F HEMOGLOBIN A1C LEVEL > 9.0% * Follow Up: 6 Months * Images: Billing Information: * Visit Code: 36686 Office Visit, Est Pt., Level 4. * Procedure Codes: G2211 Complex e/m visit add on. G8752 MOST RECENT SYSTOLIC BP < 140MM HG. G8754 MOST RECENT DIASTOLIC BP < 90MM HG. 3046F HEMOGLOBIN A1C LEVEL > 9.0%. * Electronic signature of Kelsea Anthony MD on 07/21/2025 at 01:13 PM EDT Sign off status: Pending * Provider: Tree Anthony M.D. Date: 0 03/04/2025 Generated for Ted lopez/Juanita/Peeitting on: 0 07/21/2025 01:13 PM EDT History and Physical Notes * HPI (History of Present Illness) Category Sub-Category Detail Notes Category Not es Cardiology Blood Pressure Elevated Pt here to f/u on hypertension, states she is doing well and does not have any concerns. Pt states that she did have nuclear stress test done 03/02 and will see cardiology on 03/21 Hyperlipidemia Pt is fasting today Examination Category Sub-Category Detail Notes Category Not es Endocrinology HEENT: unremarkable Heart: RSR Lungs: clear to auscultatio n Extremities: no leg edema General Appearance: NAD, BMI 33.33 Skin: normal, no rash Thyroid exam: no enlargement
--- OUTSIDE RECORDS SUMMARY | 2025-06-13 09:45 | XMS_ITS ---
Author Organization [facility] Address [address] [facility] [address] [id number] Care Team Providers Care Shaker Washer Name Role Phone Fabrice Anthony Primary Care Provider [phone] Allergies Allergen (clinical drug ingredient) Drug/Non Drug Allergy documented on EMR Reaction Allergy Type Onset Date Status Penicillin Unknown Drug Allergy Active Substance with sulfonamide structure and antibacterial mechanism of action (substance) Sulfa Antibiotics Unknown Drug Allergy Active Results Component Value Reference Range Notes Glucose (In-House) Reviewed date:06/13/2025 09:57:30 PM Interpretation: Performing Lab: Notes/Report: blood glucose 148 74 - 106 mg/dL Glycohemoglobin A1c (in hous e) Reviewed date:06/13/2025 03:19:36 PM Interpretation: Performing Lab: Notes/Report: glycohemoglobin 8.4% 5 - 6.5 % P-Comprehensive Metabolic Pa amanda (CMP) Reviewed date:06/14/2025 11:19:58 AM Interpretation:Glu 128, Alk Phos 124, AST 57 Performing Lab: Notes/Report: Test performed by [facility], [facility] , [address], [place] [address] Keaton Calixto MD, Nuclear Engineer CLIA: [id number] Sodium 141 135-145 mmol/L Potassium 4.6 3.5-5.3 mmol/L Chloride 101 97-108 mmol/L CO2 26 20-32 mmol/L Glucose 128 65-99 mg/dL BUN 11 8-23 mg/dL Creatinine 0.57 0.50-1.00 mg/dL Calcium 10.1 8.6-10.4 mg/dL eGFR by Creatinine 100 >59 mL/min/1.73m2 Protein 7.0 6.0-8.3 g/dL Albumin 4.5 3.5-5.3 g/dL Alkaline Phosphatase 124 35-121 IU/L ALT (SGPT) 34 <5-47 IU/L AST (SGOT) 57 <5-40 IU/L Bilirubin, Total 0.4 <0.2-1.2 mg/dL A/G Ratio 1.8 1.1-2.5 P-Lipid Panel Reviewed date:06/14/2025 11:19:58 AM Interpretation:Trigs 310 Performing Lab: Notes/Report: Test performed by [facility], [address] , [facility], [place] [address] Keaton Calixto MD, Nuclear Engineer CLIA: [id number] Cholesterol 141 <200 mg/dL Triglycerides 310 <150 mg/dL HDL Cholesterol 51 >39 mg/dL Cholesterol / HDL Ratio 2.76 0.00-4.44 Ratio Non-HDL Cholesterol 90 <130 mg/dL LDL Cholesterol (Calculation) 28 <130 mg/dL LDL Cholesterol Levels* Less than 100 mg/dL Optimal 100 to 129 mg/dL Near Optimal/ Above Optimal 130 to 159 mg/dL Borderline High 160 to 189 mg/dL High 190 mg/dL and above Very High * Categories as recommended by the 2004 ATPIII guidelines LDL/HDL Ratio 0.5 <3.3 Ratio LDL Cholesterol Patient History Test Date: 10/30/2023 LDL Results: 118 Units: mg/dL % Change: - Test Date: 03/04/2025 LDL Results: SEE COMMENT Units: mg/dL % Change: - Test Date: 06/13/2025 LDL Results: 28 Units: mg/dL % Change: - REASON FOR VISIT Check Up, Repeat Labs Medications Medication SIG (Take, Route, Frequency, Duration) Notes Start Date End Date Status oxyBUTYnin Chloride ER 10 MG 1 tablet Orally Once a day; Duration: 30 days 06/13/2025 Active Rosuvastatin Calcium 40 MG 1 tab(s) Oral ly once a day; Duration: 90 days Active Lisinopril 20 MG 1 tab(s) orally once a day; Duration: 90 days Active Colesevelam HCl 625 MG TAKE 2 TABLETS BY MOUTH ONCE DAILY; Duration: 90 Active Xarelto 2.5 MG 1 tablet Orally Two times a day; Duration: 90 days Active valACYclovir HCl 1 GM 1 tablet Orally Th ree times a day; Duration: 7 days 01/07/2024 Active BD Pen Needle Micro U/F 32G X 6 MM USE 1 NEEDLE ONCE DAILY Acti ve Metoprolol Succinate ER 25 MG 1 tablet Orally Once a day A ctive Leqvio 284 MG/1.5ML as directed Subcutan eous Every 6 Months Active Prevacid 24HR 15 MG 1 cap(s) orally once a day Active Cinnamon 500 MG 2 cap(s) orally 2 ti mes a day; Duration: 30 day(s) Active Aspirin 81 MG 1 tab(s) orally twic e daily Active Loratadine 10 MG 1 tab(s) orally once a day Active Tylenol Extra Strength 500 MG 2 tab(s) orally 4 times daily Active Vitamin B-12 1000 MCG 1 tab(s) orally once a day Active Vitamin C 500 MG 1 tab(s) orally once a day Active Fish Oil 1000MG 1 CAP(S) P.O. ONCE A DAY Active Magnesium 400MG 1 TAB(S) ONCE A DAY Active Vitamin D3 25 MCG (1000 UT) 1 cap(s) orally once a day A ctive Fluconazole 100 MG 1 tablet Orally manuel y; Duration: 7 days 06/13/2025 Active Jardiance 25 MG 1 tablet Orally Once a day 025 Active PARoxetine HCl 10 MG 1 tab(s) orally onc e a day; Duration: 30 day(s) Active metFORMIN HCl ER 500 mg 3 tablets Orally Once a day Active Wellbutrin XL 150 MG 1 tablet in the mor ruby Orally bid Active Ozempic (0.25 or 0.5 MG/DOSE) 2 MG/3ML as directed Subcutaneous 06/13/2025 Active Problems Problem Type SNOMED Code ICD Code Onset Dates Problem Status W/U Status Risk Notes Problem Urge incontinence of urine (20251288) Urge incontinence (N39.41) Active confirmed Vital Signs Weight 213 lbs 06/13/2025 Blood pressure systolic 122 mm Hg 06/13/20 25 Blood pressure diastolic 76 mm Hg 025 Heart Rate 87 /min 06/13/2025 Height 67.50 in 06/13/2025 BMI 32.86 kg/m2 06/13/2025 Encounters Encounter Location Date Provider Diagnosis [facility] [address] [facility] [address], [place] [id number] 06/13/2025 Fabrice Anthony Type 2 diabetes paolo itus without complication, without long-term current use of insulin E11.9 ; Essential hypertension I10 ; Mixed hyperlipidemia E78.2 ; Hypertriglyceridemia E78.1 ; Elevated LFTs R79.89 and Urge incontinence N39.41 Assessments Encounter Date Diagnosis (ICD Code) Assessment Notes Treatment Notes Treatment Clinical Notes Section Notes 06/13/2025 Type 2 diabetes paolo itus without complication, without long-term current use of insulin (ICD-10 - E11.9) Not at goal today 06/13/2025 Essential hypertensi on (ICD-10 - I10) 06/13/2025 Mixed hyperlipidemia (ICD-10 - E78.2) 06/13/2025 Hypertriglyceridemia (ICD-10 - E78.1) 06/13/2025 Elevated LFTs (ICD-1 0 - R79.89) 06/13/2025 Urge incontinence (ICD-10 - N39.41) Plan Of Treatment Medication Medication Name Sig Start Date Stop Date Notes oxyBUTYnin Chloride ER 10 MG 1 tablet Or ally Once a day; Duration: 30 days 06/13/2025 Diflucan 150 MG 1 tablet Orally once 03/22/2025 Fluconazole 100 MG 1 tablet Orally manuel y; Duration: 7 days 06/13/2025 Jardiance 25 MG 1 tablet Orally Once a day 03/10/2025 metFORMIN HCl ER 500 mg 3 tablets Orally Once a day Ozempic (0.25 or 0.5 MG/DOSE ) 2 MG/3ML as directed Subcutaneous 06/13/2025 Treatment Notes Assessment Notes Type 2 diabetes mellitus wit hout complication, without long-term current use of insulin Not at goal today Next Appt Details Follow Up: 3 Months, Reason: Provider Name:Fabrice melendrez, 08/31/2025 02:30:00 PM, [address] [place] [address], [facility] [address], [place], [place], [id number], Provider Name:Fabrice melendrez, 09/14/2025 01:30:00 PM, [address] [place] [address] [address] [facility], [facility] [address], [place], [place], [id number], Progress Notes * Kiah OLVERAOB :1960 (64 yo F)Acc No.[id number]:06/13/2025 Progress Notes Patient: iVrginia Earline DESAI Provider: Tree Anthony M.D. :1960 A ge:64 Y S ex:Female Date:06/13/2025 Address:[address] [place] [address] [address] [id number] Subjective: * Chief Complaints: * 1 . Check Up, Repeat Labs. * HPI: C ardiology: 64 year old female presents with c/o Blood Pressure Elevated?Pt here to f/u on hypertension. Pt states she is doing well and does not have any concerns . ? c/o Hyperlipidemia P t is not fasting today. E ndocrinology: c/o Recent Blood Sugars P t here to f/u on DM 2. Pt currently taking Jardiance and states she has continued with yeast infection. Pt took Diflucan in March and again on 05/23 but has not had any relief. * ROS: D ERMATOLOGY: no R leno. n o H vianey. G ASTROENTEROLOGY: no N ausea. n o V omiting. U ROLOGY: no D ifficulty urinating. n o B lood in urine. * Medical History: C oronary Artery Disease, s/p [place] x2 (2007) with stenting x 3 vessels , Type 2 Diabetes, Hypertension, Hyperlipidemia, IBS with Diarrhea, Esophageal Reflux, Urinary Incontinence, [employer] - Dr. Mayfield, 40 Year Smoking Hx, [...] RT Hip Labral Repair, Psoas Tendon Lengthening- [facility] 08/2020, Breast Biopsy 01/2021, Appendectomy - 04/09/21, colonoscopy 2018, AAA repair - Endoprosthesis 2023. * Hospitalization/Major Diagno stic Procedure: C olitis 03/2008, Chest Pain- [facility] 04/04-, Palpatations, High BP- [facility] ER 06/2016, LT Shoulder Pain- [facility] ER 05/25/2017. * Family History: F [...] Orally Three times a day , Taking Leqvio 284 MG/1.5ML Solution Prefilled Syringe as directed Subcutaneous Every 6 Months , Taking Metoprolol Succinate ER 25 MG Tablet Extended Release 24 Hour 1 tablet Orally Once a day , Taking Prevacid 24HR 15 MG Capsule Delayed Release 1 cap(s) orally once a day , Taking metFORMIN HCl ER 500 mg Tablet Extended Release 24 Hour 3 tablets Orally Once a day , Taking Xarelto 2.5 MG Tablet 1 tablet Orally Two times a day , Taking Lisinopril 20 MG Tablet 1 tab(s) orally once a day , Taking Rosuvastatin Calcium 40 MG Tablet 1 tab(s) Orally once a day , Taking Colesevelam HCl 625 MG Tablet TAKE 2 TABLETS BY MOUTH ONCE DAILY , Taking Jardiance 25 MG Tablet 1 tablet Orally Once a day , Taking Diflucan 150 MG Tablet 1 tablet Orally once , Medication List reviewed and reconciled with the patient * Allergies: P enicillin, Sulfa Antibiotics. Objective: * Vitals: W t: 213, Temp: 97.7, BP: 122/76, HR: 87, Nurse: kk, Ht: 67.50, BMI:32.86. * Examination: E ndocrinology: General Appearance: N AD, BMI 32.86. H eart: R SR.?Lungs: c lear to auscultation. E xtremities: n o leg edema. Assessment: * Assessment: 1. T ype 2 diabetes mellitus without complication, without long-term current use of insulin - E11.9 (Primary) 2 . E ssential hypertension - I10 3 . M ixed hyperlipidemia - E78.2 4 . H ypertriglyceridemia - E78.1 5 . Elevated LFTs - R79.89 6 . U rge incontinence - N39.41 Plan: * Treatment: Value Reference Range A /G Ratio 1.8 1.1-2.5 - * A lbumin 4.5 3.5-5.3 - g/dL * A lkaline Phosphatase 124 H 35-121 - IU/L * A LT (SGPT) 34 <5-47 - IU/L * A ST (SGOT) 57 H <5-40 - IU/L * B ilirubin, Total 0.4 <0.2-1.2 - mg/dL * B UN 11 8-23 - mg/dL * C alcium 10.1 8.6-10.4 - mg/dL * C hloride 101 97-108 - mmol/L * C O2 26 20-32 - mmol/L * C reatinine 0.57 0.50-1.00 - mg/dL * G lucose 128 H 65-99 - mg/dL * P otassium 4.6 3.5-5.3 - mmol/L * S odium 141 135-145 - mmol/L * P rotein 7.0 6.0-8.3 - g/dL * e GFR by Creatinine 100 >59 - mL/min/1.73m2 * Cristine Rick 06/14/2025 11: 19:51 AM EDT > See phone encounter ?LAB: Glucose (In-House) (Collection Date & Time - 06/13/2025)* Value Reference Range b lood glucose 148 74 - 106 mg/dL * Anali Gomez 06/13/2025 03:17: 21 PM EDT > Provider reviewed results while patient in office.Fabrice Anthony Lily 06/13/2025 09:57:25 PM EDT > ?LAB: Glycohemoglobin A1c (in house) (Collection Date & Time - 06/13/2025)* Value Reference Range g lycohemoglobin 8.4% 5 - 6.5 % * Anali Gomez 06/13/2025 03:19: 27 PM EDT > Provider reviewed results while patient in office. Notes: Not at goal today??2.?Essential hypertension?LAB: P-Comprehensive Metabolic Panel (CMP) (Collection Date & Time - 06/13/2025 01:55 PM)?Glu 128, Alk Phos 124, AST 57* Value Reference Range A /G Ratio 1.8 1.1-2.5 - * A lbumin 4.5 3.5-5.3 - g/dL * A lkaline Phosphatase 124 H 35-121 - IU/L * A LT (SGPT) 34 <5-47 - IU/L * A ST (SGOT) 57 H <5-40 - IU/L * B ilirubin, Total 0.4 <0.2-1.2 - mg/dL * B UN 11 8-23 - mg/dL * C alcium 10.1 8.6-10.4 - mg/dL * C hloride 101 97-108 - mmol/L * C O2 26 20-32 - mmol/L * C reatinine 0.57 0.50-1.00 - mg/dL * G lucose 128 H 65-99 - mg/dL * P otassium 4.6 3.5-5.3 - mmol/L * S odium 141 135-145 - mmol/L * P rotein 7.0 6.0-8.3 - g/dL * e GFR by Creatinine 100 >59 - mL/min/1.73m2 * Cristine Rick 06/14/2025 11: 19:51 AM EDT > See phone encounter 3.?Mixed hyperlipidemia?LAB: P-Comprehensive Metabolic Panel (CMP) (Collection Date & Time - 06/13/2025 01:55 PM)?Glu 128, Alk Phos 124, AST 57* Value Reference Range A /G Ratio 1.8 1.1-2.5 - * A lbumin 4.5 3.5-5.3 - g/dL * A lkaline Phosphatase 124 H 35-121 - IU/L * A LT (SGPT) 34 <5-47 - IU/L * A ST (SGOT) 57 H <5-40 - IU/L * B ilirubin, Total 0.4 <0.2-1.2 - mg/dL * B UN 11 8-23 - mg/dL * C alcium 10.1 8.6-10.4 - mg/dL * C hloride 101 97-108 - mmol/L * C O2 26 20-32 - mmol/L * C reatinine 0.57 0.50-1.00 - mg/dL * G lucose 128 H 65-99 - mg/dL * P otassium 4.6 3.5-5.3 - mmol/L * S odium 141 135-145 - mmol/L * P rotein 7.0 6.0-8.3 - g/dL * e GFR by Creatinine 100 >59 - mL/min/1.73m2 * Cristine Rick 06/14/2025 11: 19:51 AM EDT > See phone encounter ?LAB: P-Lipid Panel (Collection Date & Time - 06/13/2025 01:55 PM)?Trigs 310 * Value Reference Range C holesterol / HDL Ratio 2.76 0.00-4.44 - Ratio * C holesterol 141 <200 - mg/dL * H DL Cholesterol 51 >39 - mg/dL * L DL Cholesterol (Calculation) 28 <130 - mg/d L * L DL/HDL Ratio 0.5 <3.3 - Ratio * N on-HDL Cholesterol 90 <130 - mg/dL * T riglycerides 310 H <150 - mg/dL * Cristine Rick 06/14/2025 11: 19:51 AM EDT > See phone encounter 4.?Elevated LFTs?LAB: P-Comprehensive Metabolic Panel (CMP) (Collection Date & Time - 06/13/2025 01:55 PM)?Glu 128, Alk Phos 124, AST 57* Value Reference Range A /G Ratio 1.8 1.1-2.5 - * A lbumin 4.5 3.5-5.3 - g/dL * A lkaline Phosphatase 124 H 35-121 - IU/L * A LT (SGPT) 34 <5-47 - IU/L * A ST (SGOT) 57 H <5-40 - IU/L * B ilirubin, Total 0.4 <0.2-1.2 - mg/dL * B UN 11 8-23 - mg/dL * C alcium 10.1 8.6-10.4 - mg/dL * C hloride 101 97-108 - mmol/L * C O2 26 20-32 - mmol/L * C reatinine 0.57 0.50-1.00 - mg/dL * G lucose 128 H 65-99 - mg/dL * P otassium 4.6 3.5-5.3 - mmol/L * S odium 141 135-145 - mmol/L * P rotein 7.0 6.0-8.3 - g/dL * e GFR by Creatinine 100 >59 - mL/min/1.73m2 * Cristine Rick 06/14/2025 11: 19:51 AM EDT > See phone encounter 5.?Urge incontinence? Start oxyBUTYnin Chloride ER Tablet Extended Release 24 Hour, 10 MG, 1 tablet, Orally, Once a day, 30 days, 30, Refills 0.??6.?Others? Start Fluconazole Tablet, 100 MG, 1 tablet, Orally, daily, 7 days, 7 Tablet, Refills 0;?Stop Diflucan Tablet, 150 MG, 1 tablet, Orally, once.?? * Procedure Codes: G 2211 Complex e/[place], [address] GLUCOSE TEST, 63016 GLYCATED HEMOGLOBIN TEST, Modifiers: QW , 3052F HG A1C>EQUAL 8.0%<EQUAL 9.0%, G8950 PREHTN/HTN BP DOC INDCD F/U DOC, G8752 MOST RECENT SYSTOLIC BP < 140MM HG, G8754 MOST RECENT DIASTOLIC BP < 90MM HG * Follow Up: 3 Months * Images: Billing Information: * Visit Code: 60048 Office Visit, Est Pt., Level 4. * Procedure Codes: G2211 Complex e/[place]. [address] GLUCOSE TEST. 42741 GLYCATED HEMOGLOBIN TEST. Modifiers: QW 3052F HG A1C>EQUAL 8.0%<EQUAL 9.0%. G8950 PREHTN/HTN BP DOC INDCD F/U DOC. G8752 MOST RECENT SYSTOLIC BP < 140MM HG. G8754 MOST RECENT DIASTOLIC BP < 90MM HG. * Electronic signature of Kelsea Anthony MD on 07/21/2025 at 01:13 PM EDT Sign off status: Pending * Provider: Tree Anthony M.D. Date: 0 06/13/2025 Generated for Ted lopez/Juanita/Lateshasmitting on: 0 07/21/2025 01:13 PM EDT History and Physical Notes * HPI (History of Present Illness) Category Sub-Category Detail Notes Category Not es Endocrinology Recent Blood Sugars Pt here to f /u on DM 2. Pt currently taking Jardiance and states she has continued with yeast infection. Pt took Diflucan in March and again on 05/23 but has not had any relief Cardiology Blood Pressure Elevated Pt here to f/u on hypertension. Pt states she is doing well and does not have any concerns Hyperlipidemia Pt is not fasting to day Examination Category Sub-Category Detail Notes Category Not es Endocrinology Heart: RSR Lungs: clear to auscultatio n Extremities: no leg edema General Appearance: NAD, BMI 32.86
--- OUTSIDE RECORDS SUMMARY | 2025-07-21 13:13 | XMS_ITS | Clinical Summary ---
Author Organization [facility] Address [address] [place] [address] Care Team Providers Care Milker Machine Name Role Phone Fabrice Anthony MD Primary Care Provider [phone] Allergies Active Allergy Reactions Criticality Noted Date [...] Active Multiple Vitamin (MULTI-VITAMIN PO) 03/10/2019 Active [place]-3 Fatty Acids (FISH OIL PO) 03/10/2019 Active [...] [facility]-Bone Density Scan 1959 [facility]-Depression Screening 1959 [facility]-Infant/Child/Adol SDOH Screenings 1959 [facility]- SDOH Screenings 1977 [facility]-Adult SDOH Screenings 1977 [facility]-DTaP,Tdap,and Td Vaccines (1 - Tdap) 1978 [facility]-Pap Smear 1980 [facility]-Cervical Cancer Screening 1989 [facility]-HPV/Cotest 1989 CT Colonography 2004 Colonoscopy 2004 FIT-DNA 2004 FIT 2004 FOBT 2004 Sigmoidoscopy 2004 [facility]-Colorectal Cancer Screening 2004 [facility]-Pneumococcal Vaccine: 50+ Years (1 of 1 - PCV) 2009 [facility]-Zoster Vaccines (1 of 2) 2009 [id number] Vaccine (2023- season) 2024 06/07/2021, 05/08/2021, 04/17/2021 [facility]-Influenza Vaccine (#1) 07/18/202509/01, 10/01/2019, 08/28/2018, Additional history exists [facility]-RSV Vaccine: 60+ Years or (1 - 1-dose 75+ series) 2034 [facility]-Breast Cancer Screening Discontinued 04/2022, 04/22/2022, 01/16/2021, Additional history exists HPV Vaccines Aged Out [...] patient's age to complete this topic Insurance [address] [place] [address] ANNABELLA Care Teams Milker Machine Relationship Specialty Start Date End Date Fabrice Anthony MD [address] [place] [address] PCP - General 03/30/21
--- OUTSIDE RECORDS SUMMARY | 2025-07-21 13:13 | XMS_ITS | Clinical Summary ---
Author Organization [facility] Address [address] [place] [address] Phone Care Team Providers Care Rail Tractor Operator Name Role Phone Fabrice Anthony MD Primary Care Provider [phone] Social History Tobacco Use Types Packs/Day Years [...] 2024 Bone Density Screening 2024 Influenza Vaccine (#1) 2025 Hepatitis B Vaccine Aged Out No longe r eligible based on patient's age to complete this topic Meningococcal B Vaccine Aged Out No l onger eligible based on patient's age to complete this topic Care Teams Rail Tractor Operator Relationship Specialty Start Date End Date Fabrice Anthony MD [address] [place] [id number] PCP - General Family Medicine 08/23/15
--- OUTSIDE RECORDS SUMMARY | 2025-07-21 13:13 | XMS_ITS | Clinical Summary ---
Author Organization [facility] Address [address] [place] [address] Care Team Providers Care Discharge Door Operator Name Role Phone Fabrice Anthony MD Primary Care Provider [phone] Allergies Active Allergy Reactions Criticality Noted Date Comments Penicillins Itching 07/23/2016 Sulfa Antibiotics Itching 07/23/2016 Medications cholecalciferol (VITAMIN D3) 1000 UNITS tablet Take 1,000 Units by mouth daily. Active vitamin C (ASCORBIC ACID) 500 MG tablet Take 500 mg by mouth daily. Active B Complex-Biotin- FA (SUPER B-COMPLEX) capsule Take 1 capsule by mouth daily. Active aspirin 81 MG EC tablet Take 81 mg by mouth daily. Active lansoprazole (PREVACID) 15 MG capsule Take 15 mg by mouth daily. Active metFORMIN (GLUCOPHAGE) 500 MG tablet Take 500 mg by mouth Daily With Breakfast. Active carvedilol (COREG) 25 MG tablet Take 1 tablet by mouth 2 (Two) Times a Day. 9 Active Rivaroxaban (XARELTO) 2.5 MG tablet Take 1 tablet by mouth 2 (Two) Times a Day. 9 Active [place]-3 Fatty Acids (FISH OIL) 1200 MG capsule delayed-release Take 1 capsule by mouth Daily. Active Magnesium 250 MG tablet Take 1 tablet by mouth Daily. Active lisinopril (PRINIVIL,ZESTR IL) 10 MG tablet Take 10 mg by mouth Daily. 1 Active loratadine (CLARITIN) 10 MG tablet Take 10 mg by mouth Daily. 1 Active glycopyrrolate (ROBINUL) 2 MG tablet Take 2 mg by mouth Daily. 1 Active colesevelam (WELCHOL) 625 MG tablet Take 1 tablet by mouth Daily. 2 Active rosuvastatin (CRESTOR) 10 MG tablet Take 1 tablet by mouth Every Night. 3 Active PARoxetine (Paxil) 10 MG tablet Take 1 tablet by mouth Every Morning. Provider retiring at end of day 09/16/24. Patient should contact our office to schedule appointment with another provider in our practice. 90 tablet 4 Active Hospital, Clinic, or Other Facility Administered Medication Ordered Dose Route Frequency Start Date End Date Status lidocaine-EPINEPHrine (XYLOCAINE W/EPI) 1 %-1:[id number] injection 5 mL 5 mL IJ Once 02/06/2021 Active Active Problems Problem Noted Date Diagnosed Date Obesity (BMI 30.0-34.9) 07/23/2016 Irritable bowel syndrome with diarrhea 6 Post-menopause on HRT (hormone replacement thera py) OAB (overactive bladder) Hypertension Hyperlipidemia History of [place] (myocardial infarction) CAD (coronary artery disease) Alopecia IBS (irritable bowel syndrome) Diabetes mellitus Labral tear of right hip joint Hormone replacement therapy (HRT) Resolved Problems Problem Noted Date Diagnosed Date Resolved Date IBS (irritable bowel syndrome) 07/23/2016 Post-menopause on HRT (hormo ne replacement therapy) 08/08/2020 Menopause 08/08/2020 Menopause 08/13/2021 Family History Medical History Relation Name Comments Heart attack Father Hypertension Father Melanoma Father Breast cancer Maternal Aunt GREAT Diabetes Maternal Grandmother Hypertension Mother Ovarian cancer Neg Hx Relation Name Status Comments Father Maternal Aunt GREAT Maternal Grandmother Mother Social History Tobacco Use Types Packs/Day Years Used Date Smoking Tobacco: Former Electronic Cigarette Smokeless Tobacco: Never Tobacco Cessation:Counseling Given: Not Answered Comments:using electronic cigarette Alcohol Use Standard Drinks/Week Comments Yes 0 (1 standard drink = 0.6 oz pur e alcohol) occasionally Comments No Sex and Gender Information Value Date Recorded Sex Assigned at Female 06/17/2022 10:16 PM EDT Legal Sex Female 10:22 AM EDT Gender Identity Female 06/17/2022 10:16 PM EDT Sexual Orientation Straight 06/17/2022 10 :16 PM EDT Last Filed Vital Signs Vital Sign Reading Time Taken Comments Blood Pressure 160/86 10/20/2023 3:07 PM EST Pulse - - Temperature 36.3 C (97.3 F) 08/08/2020 3:52 PM EDT Respiratory Rate - - Oxygen Saturation - - Inhaled Oxygen Concentration - - Weight 98.3 kg (216 lb 12.8 oz) 10/20/2023 3:07 PM EST Height 172.7 cm (5' 8 ) 10/20/2023 3:07 PM EST Body Mass Index 32.96 10/20/2023 3:07 PM EST Plan of Treatment Health Maintenance Due Date Last Done Comments DXA SCAN 1959 LIPID PANEL 1959 DIABETIC EYE EXAM 1969 DIABETIC FOOT EXAM 1969 URINE MICROALBUMIN-CREATININ E RATIO (uACR) 1969 Pneumococcal Vaccine 50+ (1 of 2 - PCV) 1978 TDAP/TD VACCINES (1 - Tdap) 1978 COLOGUARD 2004 COLON CANCER SCREENING 5 YEA R SIGMOIDOSCOPY 2004 COLONOSCOPY 2004 [address] CANCER SCREENING 2004 CT COLONOGRAPHY 2004 FECAL OCCULT BLOOD TEST 2004 FIT Testing (1 year) 2004 ZOSTER VACCINE (1 of 2) 2009 ANNUAL WELLNESS VISIT 07/23/2016 HEMOGLOBIN A1C 07/23/2016 HEPATITIS C SCREENING 07/23/2016 COVID-19 Vaccine ( - 2024-2 6 season) 2025 06/07/2021, 05/08/2021, 04/17/2021 INFLUENZA VACCINE 08/17/2025 09/01/2020, , 08/28/2018, Additional history exists MAMMOGRAM 01/18/2027 01/18/2025, 12/19, 12/30/2023, Additional history exists Procedures Procedure Name Priority Date/Time Associated Diagnosis Comments MAMMO DIAGNOSTIC DIGITAL TOMOSYNTHESIS LEFT W CAD Routine 01/18/2025 2:23 PM EST Abnormal mammogram from Last 3 Months or Most Recently Relevant to Health Maintenance Results * Mammo Diagnostic Digital Tomosynthesis Left With CAD (01/18/2025 2:23 PM EST) Anatomical Region Laterality Modality Breast Left Mammography 01/18/2025 3:12 PM EST Impressions 01/18/2025 3:14 PM EST Persistent 0.7 cm lobulated mass in the left posterior lower inner quadrant is felt to most likely correlate to an elongated cyst versus cluster of cysts in the 830 distribution seen sonographically as described above. Recommendation is for follow-up imaging. RECOMMENDATION: Recommend 6-month mammographic follow-up of the left breast. ACR BI-RADS CATEGORY: 3, PROBABLY BENIGN CAD was utilized. The standard false-negative rate of mammography is between 10% and 25%. Complex patterns or increased breast density will markedly elevate the false-negative rate of mammography. A letter, in lay terminology, with the results of this exam was given to the patient at the time of the visit. At our facility, a triangular marker is positioned over a palpable area of concern indicated by the patient. A pokagon marker is placed over a visible skin lesion. A linear marker indicates a scar. _ Physician Order Diagnostic 6 Month follow up Mammogram with Breast Ultrasound if needed. Diagnosis: Abnormal Mammogram 01/18/2025 3:[address] Cecily Collins MD on Narrative 01/18/2025 3:14 PM EST LEFT DIAGNOSTIC MAMMOGRAM WITH TOMOSYNTHESIS AND A FOCUSED LEFT BREAST ULTRASOUND CLINICAL INDICATION: 64-year-old patient presents for additional imaging evaluation of the left breast recommended from a screening study done on 01/07/2025. TECHNIQUE: Left CC and MLO focal compression views were performed as well as a left ML view all with tomosynthesis. A focused left breast ultrasound was performed. COMPARISON: 01/07/2025, 12/30/2023, 04/22/2022, 01/16/2021 FINDINGS: The focal asymmetry noted in the posterior lower inner quadrant persist is a lobulated isodense mass measuring approximately 0.7 cm in size. Focused ultrasound imaging of the left breast demonstrates in the 8:30 position, 6 cm from the nipple in the posterior one third of the breast an elongated cyst versus possibly a cluster of cysts. This measures up to 0.7 cm in size and is felt to most likely correlate to the mammographic mass. No solid masses or abnormal areas of shadowing are seen in the imaged portions of the left breast. Pamela Crawford MD IMG MAMMOGRAPHY DEANNAEnzo TEJADA Final Result from Last 3 Months or Most Recently Relevant to Health Maintenance Insurance MEDICARE A & B Member Subscriber Plan / Payer ( fective 2022-Present) Name:Earline Verduzco Member ID:[id number] Relation to Subscriber:Self Name:Earline Verduzco Subscriber ID:[id number] Payer ID:[id number] Group ID:Not on file Type:Not on file Address: [address] [place] [id number] [facility] Care Teams Discharge Door Operator Relationship Specialty Start Date End Date Fabrice Anthony MD [address] [facility] [address] [place] [address] PCP - General Family Medicine 07/23/16
--- OUTSIDE RECORDS SUMMARY | 2025-07-21 13:13 | XMS_ITS | Patient Health Record ---
[facility] Address [address] [place] [id number] Care Team Providers Care Saddle And Harness Maker Name Role Phone Fabrice Anthony Primary Care Provider Allergies Allergen (clinical drug ingredient) Drug/Non Drug Allergy documented on EMR Reaction Allergy Type Onset Date Status Penicillin Unknown Drug Allergy Active Substance with sulfonamide structure and antibacterial mechanism of action (substance) Sulfa Antibiotics Unknown Drug Allergy Active Results Component Value Reference Range Notes Covid test (in house) Reviewed date:11/09/2024 11:21:07 AM Interpretation: Performing Lab: Notes/Report: Result: Neg Influenza Screen (in house) Reviewed date:11/09/2024 11:21:20 AM Interpretation: Performing Lab: Notes/Report: results Neg Thyroid Stimulating Immunogl obulin Reviewed date:09/29/2024 01:00:38 PM Interpretation: Performing Lab: Notes/Report: H-TSH Reviewed date:09/29/2024 01:00:50 PM Interpretation: Performing Lab: Notes/Report: H-Glycohemoglobin A1C Reviewed date:09/28/2024 10:56:00 AM Interpretation: Performing Lab: Notes/Report: H-T4 free Reviewed date:09/28/2024 10:55:48 AM Interpretation: Performing Lab: Notes/Report: H-Thyroid Peroxidase Antibod ies Reviewed date:09/29/2024 01:01:31 PM Interpretation: Performing Lab: Notes/Report: Glucose (In-House) Reviewed date:06/13/2025 09:57:30 PM Interpretation: Performing Lab: Notes/Report: blood glucose 148 74 - 106 mg/dL Glycohemoglobin A1c (in hous e) Reviewed date:06/13/2025 03:19:36 PM Interpretation: Performing Lab: Notes/Report: glycohemoglobin 8.4% 5 - 6.5 % P-Comprehensive Metabolic Pa amanda (CMP) Reviewed date:06/14/2025 11:19:58 AM Interpretation:Glu 128, Alk Phos 124, AST 57 Performing Lab: Notes/Report: Test performed by [facility] [address] [place] [address] , [address], [place] [address] Keaton Calixto MD, Vehicle Window Tinter CLIA: [id number] Sodium 141 135-145 mmol/L Potassium 4.6 3.5-5.3 [...] 310 Performing Lab: Notes/Report: Test performed by [facility] [address] [place] [address] , [address], [place] [address] Keaton Calixto MD, Vehicle Window Tinter CLIA: [id number] Cholesterol 141 <200 mg/dL Triglycerides 310 <150 [...] Results: 28 Units: mg/dL % Change: - P-Comprehensive Metabolic Pa amanda (CMP) Reviewed date:03/08/2025 05:04:53 PM Interpretation:K 5.4, Cl 96, Calc 10.5, Alk Phos 171, AST 58 Performing Lab: Notes/Report: Test performed by [facility] [address] [place] [address] [address], [place] [address] Keaton Calixto MD, Vehicle Window Tinter CLIA: [id number] Sodium 138 135-145 mmol/L Potassium 5.4 3.5-5.3 [...] Interpretation:9.5 Performing Lab: Notes/Report: Test performed by [facility] [address] [place] [address] [address] , [place] [address] Keaton Calixto MD, Vehicle Window Tinter CLIA: [id number] Hemoglobin A1C 9.5 <5.7 % The following HbA1c ranges recommended by the [place] [employer] (ADA) may be used as an aid in the diagnosis of diabetes mellitus. HbA1c Suggested Diagnosis >=6.5% Diabetic 5.7% - 6.4% Pre-Diabetic <5.7% Non-Diabetic P-Lipid Panel Reviewed date:03/08/2025 05:04:54 PM Interpretation:trigs 466 Performing Lab: Notes/Report: Test performed by [facility] [address] [place] [address] [address], [place] [address] Keaton Calixto MD, Vehicle Window Tinter CLIA: [id number] Cholesterol 116 <200 mg/dL Triglycerides 466 <150 [...] Interpretation:Normal Performing Lab: Notes/Report: Test performed by [facility], [address] , [place] [address] Keaton Calixto MD, Vehicle Window Tinter CLIA: [id number] TSH reflex to FT4 2.50 0.43-5.25 mU/L P-Microalbumin/Creatinine, R andom Urine Sample Reviewed date:03/08/2025 05:04:54 PM Interpretation:a/c 63 Performing Lab: Notes/Report: Test performed by [facility] [address] , [place] [address] Keaton Calixto MD, Vehicle Window Tinter CLIA: [id number] Albumin/Creatinine Ratio, Urine 63 0-30 ug/mg Microalbumin, Urine, Random 7.4 Creatinine, Urine 117.9 Estimated Average Glucose Reviewed date:03/08/2025 05:04:54 PM Interpretation: Performing Lab: Notes/Report: Test performed by [facility] [address] [place] [address] , [place] [address] Keaton Calixto MD, Vehicle Window Tinter CLIA: [id number] Estimated Average Glucose (eAG) 226 Estimated Average Glucose (eAG) is calculated using the equation eAG = (28.7 x HbA1c) - 46.7 based on the guidelines established by the ADA. If the patient has certain diseases including kidney disease, sickle cell anemia, thalassemia, or is taking medications such as dapsone, erythropoietin, or iron, eAG should not be evaluated. H-TSH Reviewed date:09/30/2024 08:25:56 AM Interpretation:Normal Performing [...] Notes/Report: TPO <9 0-34 IU/mL Performed at: CB - [facility] [address] [id number] Industrial Design Intern: Gallito Solis PhD, Phone: [phone] TSI Reviewed date:10/01/2024 08:28:18 AM Interpretation:Normal Performing Lab: Notes/Report: TSI <0.10 0.00-0.55 IU/L Performed at: - [facility] [id number] Industrial Design Intern: Avila Negron MD, Phone: [phone] Reason For Referral No Information Medications Medication SIG (Take, Route, Frequency, Duration) Notes Start Date End Date Status Cinnamon 500 MG 2 cap(s) orally 2 [...] orally once a day A ctive Vitamin C 500 MG 1 tab(s) orally once a day Active Fluconazole 100 MG 1 tablet Orally manuel y; Duration: 7 days 06/13/2025 Active PARoxetine HCl 10 MG 1 tab(s) orally onc e a day; Duration: 30 day(s) Active metFORMIN HCl ER 500 mg 3 tablets Orally Once a day Active Wellbutrin XL 150 MG 1 tablet in the mor ruby Orally bid Active Fish Oil 1000MG 1 CAP(S) P.O. ONCE A DAY Active Magnesium 400MG 1 TAB(S) ONCE A DAY Active Jardiance 25 MG 1 tablet Orally Once a day; Duration: 90 days Active oxyBUTYnin Chloride ER 10 MG 2 tablet Orally Once a day; Duration: 30 [...] times a day; Duration: 90 days Active Ozempic (0.25 or 0.5 MG/DOSE) 2 MG/3ML 0.5 mg Subcutaneous once a week; Duration: 30 days 06/13/2025 Active valACYclovir HCl 1 GM 1 tablet Orally Th ree times a day; Duration: 7 days 01/07/2024 Active BD Pen Needle Micro U/F 32G X 6 MM USE 1 NEEDLE ONCE DAILY Acti ve Metoprolol Succinate ER 25 MG 1 tablet Orally Once a day A ctive Leqvio 284 MG/1.5ML as directed Subcutan eous Every 6 Months Active Immunizations Vaccine Route Administration Date Status [...] W/U Status Risk Notes Problem Essential hypertension (72946671) Essential hypertension (I10) Active confirmed Problem Morbid obesity (108053101) Morbid obesity (E66.01) Active confirmed Problem Hypertriglyceridemia (843503379) Hypertriglyceridemia (E78.1) Active confirmed Problem Obese class I (982652924452870) BMI 33.0-33.9,adult (Z68.33) Active confirmed Problem Mixed hyperlipidemia (894913791) Mixed hyperlipidemia (E78.2) Active confirmed Problem Urge incontinence of urine (40955686) Urge incontinence (N39.41) Active confirmed Problem Gastroesophageal reflux disease without esophagitis (046319673) Gastroesophageal reflux disease without esophagitis (K21.9) Active confirmed Problem Hyperlipidemia (50746576) Hyperlipidemia, unspecified hyperlipidemia (E78.5) Active confirmed Problem Obesity (349742927) Non morbid o besity due to excess calories (E66.09) Active confirmed Problem Atherosclerotic hear t disease of [place] coronary artery without angina pectoris (890589327327252) Coronary artery disease involving [place] coronary artery of [place] heart without angina pectoris (I25.10) Active confirmed Problem Tobacco user (876376975) Cigarette nicotine dependence without complication (F17.210) Active confirmed Problem Type II diabetes mellitus without complication (526104470) Type 2 diabetes mellitus without complication, without long-term current use of insulin (E11.9) Active confirmed Problem Obese class I (finding) (446865678842046) Obesity (BMI 30.0-34.9) (E66.9) Active confirmed Problem Abdominal aortic aneurysm without rupture (disorder) (42695057) Abdominal aortic aneurysm (AAA) without rupture (I71.4) Active confirmed Problem History of appendectomy (163466653) S/P appendectomy (Z90.49) Active confirmed Vital Signs Heart Rate 87 /min 06/13/2025 Blood pressure diastolic 76 mm Hg 06/13/2025 Height 67.50 in 06/13/2025 Blood pressure systolic 122 mm Hg 06/13/2025 Weight 213 lbs 06/13/2025 BMI 32.86 kg/m2 06/13/2025 Encounters Encounter Location Date Provider Diagnosis [facility] [address] [facility] [address] [place], [place] [id number] 09/03/2024 Fabrice Decatur Type 2 diabetes paolo itus without complication, without long-term current use of insulin E11.9 ; Essential hypertension I10 ; Low TSH level R79.89 ; Gastroesophageal reflux disease without esophagitis K21.9 ; Coronary artery disease involving [place] coronary artery of [place] heart without angina pectoris I25.10 and Encounter for immunization Z23 [facility] [address] [facility] [address] [place], [place] [id number] 11/09/2024 Fabrice Anthony Acute URI J06.9 [facility] [address] [facility] [address] [place], [place] [id number] 03/04/2025 Fabrice Dec[place] Type 2 diabetes paolo itus without complication, without long-term current use of insulin E11.9 ; Essential hypertension I10 ; Coronary artery disease involving [place] coronary artery of [place] heart without angina pectoris I25.10 ; Mixed hyperlipidemia E78.2 ; Gastroesophageal reflux disease without esophagitis K21.9 ; Non morbid obesity due to excess calories E66.09 ; 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, 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 and BMI 33.0-33.9,adult Z68.33 [facility] [address] [facility] [address] [place], [place] [id number] 06/13/2025 Fabrice Dec[place] Type 2 diabetes paolo itus without complication, without long-term current use of insulin E11.9 ; Essential hypertension I10 ; Mixed hyperlipidemia E78.2 ; Hypertriglyceridemia E78.1 ; Elevated LFTs R79.89 and Urge incontinence N39.41 [facility] [address] [facility] [address] [place], [place] [id number] 08/09/2024 Fabrice Dec[place] [facility] [address] [facility] [address] [place], [place] [id number] 09/20/2024 Fabrice Dec[place] [facility] [address] [facility] [address] [place] [id number] 09/30/2024 Fabrice Decatur [facility] [address] [facility] [address] [place], [place] [id number] 11/26/2024 Fabrice Dec[place] Type 2 diabetes paolo itus without complication, without long-term current use of insulin E11.9 [facility] [address] [facility] [address] [place], [place] [id number] 12/27/2024 Fabrice Decatur Type 2 diabetes paolo itus without complication, without long-term current use of insulin E11.9 [facility] [address] [facility] [address] [place], [place] [id number] 03/08/2025 Fabrice Decatur [facility] [address] [facility] [address] [place] [id number] 03/22/2025 Fabrice Decatur [facility] [address] [place], [place] [id number] 05/04/2025 Fabrice Decatur [facility] [address] [place], [place] [id number] 05/23/2025 Fabrice Decatur [facility] [address] [place], [place] [id number] 06/14/2025 Fabrice Decatur [facility] [address] [place], [place] [id number] 06/21/2025 Fabrice Decatur [facility] [address] [place], [place] [id number] 07/07/2025 Fabrice Decatur Type 2 diabetes paolo itus without complication, without long-term current use of insulin E11.9 and Urge incontinence N39.41 [facility] [address] [place], [place] [id number] 07/11/2025 Fabrice Decatur Assessments Encounter Date Diagnosis (ICD Code) Assessment Notes Treatment Notes Treatment Clinical Notes Section Notes 09/03/2024 Essential hypertensi on (ICD-10 - I10) 11/09/2024 Acute URI (ICD-10 - J06.9) 11/26/2024 Type 2 diabetes paolo itus without complication, without long-term current use of insulin (ICD-10 - E11.9) 12/27/2024 Type 2 diabetes paolo itus without complication, without long-term current use of insulin (ICD-10 - E11.9) 03/04/2025 Essential hypertensi on (ICD-10 - I10) 09/03/2024 Type 2 diabetes paolo itus without complication, without long-term current use of insulin (ICD-10 - E11.9) 03/04/2025 Type 2 diabetes paolo itus without complication, without long-term current use of insulin (ICD-10 - E11.9) 06/13/2025 Essential hypertensi on (ICD-10 - I10) 06/13/2025 Type 2 diabetes paolo itus without complication, without long-term current use of insulin (ICD-10 - E11.9) Not at goal today 07/07/2025 Type 2 diabetes paolo itus without complication, without long-term current use of insulin (ICD-10 - E11.9) 07/07/2025 Urge incontinence (ICD-10 - N39.41) 06/13/2025 Mixed hyperlipidemia (ICD-10 - E78.2) 03/04/2025 Coronary artery dise ase involving [place] coronary artery of [place] heart without angina pectoris (ICD-10 - I25.10) 09/03/2024 Low TSH level (ICD-1 0 - R79.89) Labs from cardiology reviewed in office today, see report 09/03/2024 Gastroesophageal ref lux disease without esophagitis (ICD-10 - K21.9) 03/04/2025 Mixed hyperlipidemia (ICD-10 - E78.2) 06/13/2025 Hypertriglyceridemia (ICD-10 - E78.1) 06/13/2025 Elevated LFTs (ICD-1 0 - R79.89) 03/04/2025 Gastroesophageal ref lux disease without esophagitis (ICD-10 - K21.9) 09/03/2024 Coronary artery dise ase involving [place] coronary artery of [place] heart without angina pectoris (ICD-10 - I25.10) 09/03/2024 Encounter for immunization (ICD-10 - Z23) 03/04/2025 Non morbid obesity d ue to excess calories (ICD-10 - E66.09) 06/13/2025 Urge incontinence (ICD-10 - N39.41) 03/04/2025 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, unspecified extremity (ICD-10 - I70.329) 03/04/2025 BMI 33.0-33.9,adult (ICD-10 - Z68.33) Plan Of Treatment Pending Test Test Name Order Date LC-Hepatic Function Panel (7) 10/01/2021 Next Appt Details Provider Name:Fabrice melendrez, 08/31/2025 02:30:00 PM, [address], [place], [id number], Provider Name:Fabrice melendrez, 09/14/2025 01:30:00 PM, [address], [address], [place], [id number], Insurance Providers Payer Name Payer Address Payer Phone Subscriber Number Group Number Insured Name Patient Relationship to Insured Coverage Start Date Coverage End Date MEDICARE PART B [address] [address] [place] [id number] [id number] Earline [place]ward Self - patient is the insured [employer] [address] [address] [place] [address] [phone] [id number] Earline Hayward Self - patient is the insured Medical (General) History Medical History History ICD Code Coronary Artery Disease, s/p AL x2 (2007 ) with stenting x 3 vessels Type 2 Diabetes Hypertension Hyperlipidemia IBS with Diarrhea Esophageal Reflux Urinary Incontinence 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 Mayfield 40 Year Smoking Hx [...] RT Hip Labral Repair, Psoas Tendon [place] 08/2020 Breast Biopsy 01/2021 Appendectomy - 04/09/21 colonoscopy 2019 AAA repair - Endoprosthesis 2023 Hospitalization History Reason Date(Month/Year) LT Shoulder Pain- [facility] ER 05/25/2017 Palpatations, High BP- [facility] ER 06/2016 Chest Pain- [place] 04/04- Colitis 03/2008
--- OUTSIDE RECORDS SUMMARY | 2025-07-21 13:13 | XMS_ITS | Clinical Summary ---
Author Organization [facility] Address [address] [place] [id number] Phone [email or web address] Care Team Providers Care Call Center Support Consultant Name Role Phone Fabrice Anthony MD Primary Care Provider Allergies Active Allergy Reactions Criticality Noted Date [...] Immunization Administration Dates Next Due Covid-19 (Moderna [place], 12yrs+) ([id number]-[id number]) 2020,04/17/2021 Social History Tobacco Use [...] Health Maintenance Due Date Last Done Comments CT Colonography 1959 Cervical Cancer Screening Combo 1959 Colonoscopy 1959 Colorectal Cancer Screening Combo 1959 DNA Cologuard 1959 Dental Cleaning/Exam 1959 FIT or FOBT Test 1959 HPV / Cotest 1959 Pap Testing 1959 Sigmoidoscopy 1959 Tetanus Diphtheria and Pertussis Immunization (1 - Tdap) 1978 Osteoporosis screening DEXA 2009 Pneumococcal: 65+ Years (1 of 1 - PCV) 2009 Zoster Immunization (1 of 2) 2009 Breast Cancer Screening 07/01/2022 07/01/20 20, 09/03/2018, 04/18/2017, Additional history exists Covid-19 Immunization ( season) 2024 05/17/2021, 04/17/2021 Influenza Immunization (#1) 2025 HIB Immunization Aged Out No longer [...] patient's age to complete this topic Insurance [facility] [facility] [id number] [place] [address] Care Teams Call Center Support Consultant Relationship Specialty Start Date End Date Fabrice Anthony MD [address] [place] [address] [facility] [address] [place], [place] [id number] PCP - General Smoke Eater 05/18/21
[2025-07-21 13:23] VITALS: BP 111/76; PULSE 86; RESP 20; TEMP 36.7; O2SAT 95
[2025-07-21] MEDS: INCLISIRAN SODIUM 284 MG/1.5 ML SYRINGE SUBCUT (13:23)
== END 2025-07-21 13:35 | disposition home or self-care (01) ==
LOC: INF 13:11
PROVIDERS: PCP Family Medicine; Visit Provider Physician Assistant
DX: I25.10 Atherosclerotic heart disease of native coronary artery without angina pectoris (principal)
CPT/HCPCS: 96372; J1306